=== PATIENT | female | born 1940 | race Caucasian/White ===

== ENCOUNTER 2017-07-25 10:18 | Inpatient (IN) | payer MEDICARE ==
--- NOTE | 2017-07-25 11:11 | CT ---
CT BRAIN: Date: 07/25/17 PROVIDED CLINICAL HISTORY: Altered mental status. FINDINGS: Comparison made with study dated 08/13/15. The ventricular system appears normal in size and morphology. There is no evidence for intracranial h emorrhage or mass effect. The extracranial soft tissues and osseous structures demonstrate an unremar kable CT appearance. IMPRESSION: No evidence for intracranial hemorrhage or mass effect. POS: [facility]
[2017-07-25 11:17] LABS: #Basophils 0.1 thou/uL (0.0-0.2); #Eosinphils 0.2 thou/uL (0.0-0.7); #Lymphocytes 1.7 thou/uL (1.20-3.40); #Monocytes 0.7 thou/uL (0.11-0.59); #Neutrophils 10.7 thou/uL (1.40-6.50); %Basophils 0.6 % (0.0-1.0); %Eosinophils 1.9 % (0.0-10.0); %Lymphocytes 12.4 % (21.0-51.0); %Monocytes 5.1 % (0.0-10.0); %Neutrophils 80.1 % (42.0-75.0); Hemoglobin 12.4 g/dL (12.0-16.0); Mean Corpuscular HGB CONC 32.8 g/dL (32.0-36.0); Mean Corpuscular Hemoglobin 31.8 pg (27.0-31.0); Mean Corpuscular Volume 96.9 fl (81.0-99.0); Mean Platelet Volume 7.6 fL (7.4-10.4); Platelet Count 189 thou/uL (130-400); RBC Distribution Width 14.6 % (11.5-14.5); Red Blood Cell (RBC) Count 3.89 mill/uL (4.20-5.40); White Blood Cell (WBC) Count 13.3 thou/uL (4.8-10.8)
[2017-07-25 11:22] LABS: PTT 26.7 SEC (22.9-36.1); Prothrombin Time 13.5 SEC (12.0-14.7)
[2017-07-25 11:40] LABS: ALT (SGPT) 17 U/L (8-55); AST (SGOT) 20 U/L (5-34); Albumin 3.5 g/dL (3.4-4.8); Alkaline Phosphatase 65 U/L (40-150); Anion Gap 9 mmol/L (10-20); BUN (Urea Nitrogen) 32 mg/dL (9.8-20.1); Bilirubin, Total 0.5 mg/dL (0.2-1.2); CK (CPK) 122 U/L (29-168); CKMB 2.4 ng/mL (0-6.6); Calc. Creatinine Clearance 0 mL/min (70-130); Calcium 9.2 mg/dL (7.8-10.44); Carbon Dioxide 27 mmol/L (23-31); Chloride 109 mmol/L (98-107); Estimated GFR-MDRD 47; Globulin 2.9 g/dL (2.4-3.5); Glucose 101 mg/dL (83-110); Potassium 3.1 mmol/L (3.5-5.1); Protein, Total 6.4 g/dL (6.0-8.3); Sodium 142 mmol/L (136-145); Troponin I Less than 0.010 ng/mL (< 0.028)
[2017-07-25] MEDS ORDERED: Clindamycin/D5W 900 mg/50 ml Premix Bag ONE (14:19)
--- NOTE | 2017-07-25 14:42 | MRI ---
MRI BRAIN: Date: 07/25/17 PROVIDED CLINICAL HISTORY: Weakness. FINDINGS: Evaluation is mildly limited by patient motion. There is, however, no evidence for restricted diffusi on to suggest recent infarction. The ventricular system appears normal in size and morphology. Puncta te areas of FLAIR and T2 hyperintensity involving the periventricular white matter statistically refl ecting chronic microvascular ischemic change. Appropriate flow-voids are seen within the visualized p ortions of the major intracranial vessels. There is no evidence for intracranial hemorrhage or shift of the midline structures. IMPRESSION: Limited study without evidence for an acute intracranial abnormality. POS: [facility]
--- NOTE | 2017-07-25 15:04 | RAD ---
PORTABLE CHEST: Date: 07/25/17 PROVIDED CLINICAL HISTORY: Weakness. FINDINGS: Comparison with 07/13/09. Evaluation is limited by patient body habitus. The cardiac silhouette appears enlarged. The lungs are hypoinflated. Left basilar pleural and/or parenchymal opacity cannot be excluded on the basis of thi s study. No evidence for pneumothorax. IMPRESSION: Cardiomegaly and possible left basilar pleural and/or parenchymal opacity. Consider correlating with a lateral view. POS: [facility]
[2017-07-25 15:34] LABS: Bilirubin Negative (Negative); Blood, Urine Negative (Negative); Clarity CLEAR (Clear); Glucose, Urine (Dipstick) Negative (Negative); Leukocyte Negative (Negative); Nitrite Negative (Negative); Protein, Urine (Dipstick) Negative (Neg-Trace); Specific Gravity, Urine 1.023 (1.002-1.036); Urobilinogen 0.2 mg/dL (0.2-1.0)
[2017-07-25 15:43] LABS: Amphetamine Not Detected (NotDetected); Barbiturates Screen Not Detected (NotDetected); Benzodiazepine Screen Not Detected (NotDetected); Cocaine Metabolite Screen Not Detected (NotDetected); Medtox Control Line Valid? VALID (VALID); Medtox Reader # READER 1; Methadone Not Detected (NotDetected); Methamphetamine Not Detected (NotDetected); Opiate Screen Not Detected (NotDetected); Oxycodone Screen Not Detected (NotDetected); Phencyclidine (PCP) Not Detected (NotDetected); THC/Cannabinoid Screen Not Detected (NotDetected); Tricyclic Screen Not Detected (NotDetected)
[2017-07-25] MEDS ORDERED: Potassium Chloride 20 MEQ/100 ML PREMIX BAG ONE (15:47)
--- NOTE | 2017-07-25 16:50 | HP ---
DATE OF ADMISSION: 07/25/2017 CHIEF COMPLAINT: Weakness, altered mental status and pneumonia. HISTORY OF PRESENT ILLNESS: The patient is a 77-year-old female who was in her usual state of health , but over the last several days, the family has noticed her having confusion and some alteration in her mental status. On the day of admission, she woke up about 7:00 a.m. with weakness and this has p rogressed through the morning. The family thought she might have had a stroke combined with her alte red mental status and brought to [facility] for further evaluation. There has been no fever, nausea, vomiting. She might have had some low grade fever, but nothing documented. No diarr hea. The patient was evaluated in the emergency room, felt that there was possibly a left lobe infil trate. Certainly, there is large cardiomegaly. White count slightly elevated at 13,000, so Dr. Matthew lima was contacted for an admission. She is mildly hypokalemic as well. When EMS arrived to get her fr om her home, she stated that she first noticed her weakness when she was trying to get off the toilet and her legs began feeling heavy and numb. Temperature when EMS arrived was 100.4. She stated she felt like the room was spinning as well. The swelling in her legs is chronically present and she sta ys in the usual state of pain at about 3-5/10. 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 PAST SURGICAL HISTORY: Includes tonsillectomy, three C-sections, appendectomy, hysterectomy, and cho lecystectomy. SOCIAL HISTORY: She does not use alcohol, does not smoke. ALLERGIES: DARVON, ERYTHROMYCIN, MORPHINE, PENICILLINS, and DARVOCET. MEDICATIONS ON ADMISSION: Include Synthroid 175 mcg a day, Topamax 100 mg b.i.d., allopurinol 300 mg daily, potassium chloride 20 mEq daily, Plavix 75 mg daily, Promethazine 25 mg q.4 hours p.r.n. na ea, Imdur 30 mg daily, Protonix 40 mg daily, Cymbalta 30 mg daily, gabapentin 300 mg t.i.d., Mirapex 1.5 mg t.i.d., Celebrex 200 mg every day. She takes Lasix 80 mg b.i.d. for known congestive heart fa ilure. REVIEW OF SYSTEMS: Constitutionally, she reports fever, but denies chills, confesses to general weak ness. HEENT: Denies eye discharge, blurred vision, or drainage. EENT: Denies congestion, ear pain , sore throat. Neck: Denies painful range of motion or swelling. Cardiovascular: Denies palpitations, chest pain, but does have some edema. Respiratory: Admits to having some cough, but no wheezing. GI: Denies nausea, blood in urine or stool, no vomiting. : Denies dysuria or blood in urine or urinary frequency. Musculoskeletal: Has chronic back pain and o n the day of admission bilateral lower extremity pain. Skin: No new rashes or lesions. Neurologic: Her family states that she has been confused. She reports dizziness and general weakness. Endocri ne: No new issues other than edema in lower extremities. Allergies: No sneezing, itchy watery eyes . Psychiatric: Denies depression, but she maintains a mild state of anxiety. PHYSICAL EXAMINATION: At the time of admission, VITAL SIGNS: Blood pressure 116/66, pulse 67, respirations 20, temperature 98.8. Pain scale rated a t 0 at this time and O2 at 95% on 2 liters of oxygen. GENERAL: This is an obese elderly female who is alert and responds in her normal fashion t o questions. HEENT: Normocephalic and atraumatic. Pupils are equal, round, and reactive to light with arcus adia lis bilaterally. Pupils at 3 mm bilaterally with diminished reactivity to light bilaterally. Extrao cular muscles are intact. TMs, nares are clear. Pharynx is somewhat dry. NECK: Supple, no mass. CHEST: With diminished breath sounds on the left. Unable to appreciate rales or rhonchi. HEART: F aint distant, regular rate and rhythm. ABDOMEN: Obese, nontender, unable to appreciate organomegaly. : Deferred. BREAST: Deferred. EXTREMITIES: Upper extremities without clubbing, cyanosis, or edema. Nontender. Normal range of mo tion in the lower extremities with some 2+ swelling and there is 2+ warmth and 2+ erythema. The lesley ent states that this is chronic. SKIN: With the aforementioned changes in the lower extremity, no other acute rashes or lesions noted . On examination, she has poor turgor and tenting in the upper extremities. NEUROLOGIC: Unable to test gait and cerebellar function. Her mental status is clear at this particu lar moment. Mentation is slowed. Cranial nerves are intact. Sensory exam is grossly intact. LABORATORY WORK ON ADMISSION: Chest x-ray shows heart enlargement with probable left lower infiltrat e. CT of the head and MRI of the head, both returned without acute findings. WBCs are 13.3, hemoglo bin 12.4, hematocrit 37.7 with platelets at 189. Her sodium is 142, potassium 3.1, chloride 109, CO2 is 27, BUN 9, creatinine 1.13 with GFR of 47, glucose at 101. Liver functions entirely normal. Car diac enzymes including CK-MB of 2.4 and troponins are less than measurable. Liver functions normal. TSH is 0.38. The EKG shows no acute findings at this time with normal sinus rhythm. ASSESSMENT: 1. Altered mental status with various etiologies from hypoxia to medications. 2. Early left lower lobe pneumonia per Radiology. 3. Hypokalemia. 4. Dehydration, mild. 5. General weakness/deconditioning. PLAN: Plan will be to IV hydrate this patient. Continue IV antibiotics, nebulizer treatments, mucol ytics, and serial re-evaluation. We will maintain her usual medications.
[2017-07-25] MEDS ORDERED: Benzonatate 100 MG CAP PO PRN (18:09)
[2017-07-25] MEDS ORDERED: traMADol HCl 50 MG TAB PO PRN (18:09)
[2017-07-25] MEDS ORDERED: Acetaminophen 325 MG TAB PO PRN (18:14)
[2017-07-25] MEDS: 1/2 NS w/KCL 20 mEq 1,000 ML IV SCH (22:12)
[2017-07-25] MEDS: Azithromycin 500 MG in Sodium Chloride 0.9% 250 ML 250 ML IVPB SCH (22:13)
[2017-07-25] MEDS: Pramipexole Di-HCl 1 MG TAB PO SCH (22:16)
[2017-07-25] MEDS: Potassium Chloride 20 MEQ TAB PO SCH (22:17)
[2017-07-25] MEDS: guaiFENesin ER 600 MG TAB PO SCH (22:17)
[2017-07-25] MEDS: Gabapentin 300 MG CAP PO SCH (22:17)
[2017-07-26 03:36] VITALS: BMI 48.8
[2017-07-26 05:19] LABS: #Basophils 0.1 thou/uL (0.0-0.2); #Eosinphils 0.2 thou/uL (0.0-0.7); #Lymphocytes 1.7 thou/uL (1.20-3.40); #Monocytes 0.6 thou/uL (0.11-0.59); #Neutrophils 4.7 thou/uL (1.40-6.50); %Basophils 0.9 % (0.0-1.0); %Eosinophils 3.3 % (0.0-10.0); %Lymphocytes 23.9 % (21.0-51.0); %Monocytes 7.5 % (0.0-10.0); %Neutrophils 64.4 % (42.0-75.0); Hemoglobin 10.9 g/dL (12.0-16.0); Mean Corpuscular HGB CONC 32.5 g/dL (32.0-36.0); Mean Corpuscular Hemoglobin 31.6 pg (27.0-31.0); Mean Corpuscular Volume 97.1 fl (81.0-99.0); Mean Platelet Volume 8.2 fL (7.4-10.4); Platelet Count 170 thou/uL (130-400); RBC Distribution Width 14.7 % (11.5-14.5); Red Blood Cell (RBC) Count 3.47 mill/uL (4.20-5.40); White Blood Cell (WBC) Count 7.3 thou/uL (4.8-10.8)
[2017-07-26 05:27] LABS: Anion Gap 8 mmol/L (10-20); BUN (Urea Nitrogen) 26 mg/dL (9.8-20.1); Calc. Creatinine Clearance 85 mL/min (70-130); Calcium 8.4 mg/dL (7.8-10.44); Carbon Dioxide 24 mmol/L (23-31); Chloride 111 mmol/L (98-107); Estimated GFR-MDRD 62; Glucose 93 mg/dL (83-110); Potassium 3.1 mmol/L (3.5-5.1); Sodium 140 mmol/L (136-145); Uric Acid 3.8 mg/dL (2.6-6.0)
[2017-07-26] MEDS: Levothyroxine 175 MCG TAB PO SCH (05:50)
[2017-07-26] MEDS: Pramipexole Di-HCl 1 MG TAB PO SCH ×3 (08:22→20:32)
[2017-07-26] MEDS: DULoxetine 30 MG CAP PO SCH (08:22)
[2017-07-26] MEDS: guaiFENesin ER 600 MG TAB PO SCH ×2 (08:24→20:32)
[2017-07-26] MEDS: Allopurinol 300 MG TAB PO SCH (08:24)
[2017-07-26] MEDS: CeleCOXIB 100 MG CAP PO SCH (08:24)
[2017-07-26] MEDS: Potassium Chloride 20 MEQ TAB PO SCH ×3 (08:24→20:32)
[2017-07-26] MEDS: Clopidogrel Bisulfate 75 MG TAB PO SCH (08:24)
[2017-07-26] MEDS: Gabapentin 300 MG CAP PO SCH ×3 (08:24→20:32)
[2017-07-26] MEDS ORDERED: Furosemide 80 MG TAB PO SCH (09:00)
[2017-07-26] MEDS: 1/2 NS w/KCL 20 mEq 1,000 ML IV SCH (09:40)
[2017-07-26] MEDS ORDERED: Furosemide 40 MG/4 ML VIAL SLOW IVP SCH ×2 (10:00→16:00)
--- NOTE | 2017-07-26 11:10 | RAD ---
CHEST 2 VIEWS: Date: 07/26/17 HISTORY: Pneumonia. COMPARISON: 07/25/17. FINDINGS: Persistent opacification in the left lung base. Enlarged cardiac silhouette. There is fullness in the left perihilar region. Hiatal hernia is identified. No pneumothorax. Mild bone demineralization. Kyp hosis without evidence of compression fracture in the thoracic spine. IMPRESSION: 1. Pleural and parenchymal changes in the left lung base. Continued surveillance. 2. Hiatal hernia. 3. Left hilar fullness. POS: [facility]
[2017-07-26] MEDS ORDERED: Furosemide 20 MG/2 ML VIAL SLOW IVP SCH (16:00)
[2017-07-26] MEDS: Azithromycin 500 MG in Sodium Chloride 0.9% 250 ML 250 ML IVPB SCH (20:33)
[2017-07-27 04:58] LABS: #Basophils 0.1 thou/uL (0.0-0.2); #Eosinphils 0.5 thou/uL (0.0-0.7); #Lymphocytes 1.9 thou/uL (1.20-3.40); #Monocytes 0.7 thou/uL (0.11-0.59); #Neutrophils 3.4 thou/uL (1.40-6.50); %Basophils 1.1 % (0.0-1.0); %Eosinophils 7.9 % (0.0-10.0); %Lymphocytes 28.6 % (21.0-51.0); %Monocytes 10.7 % (0.0-10.0); %Neutrophils 51.8 % (42.0-75.0); Hemoglobin 11.1 g/dL (12.0-16.0); Mean Corpuscular HGB CONC 31.8 g/dL (32.0-36.0); Mean Corpuscular Hemoglobin 31.4 pg (27.0-31.0); Mean Corpuscular Volume 98.7 fl (81.0-99.0); Platelet Count 165 thou/uL (130-400); RBC Distribution Width 14.7 % (11.5-14.5); Red Blood Cell (RBC) Count 3.53 mill/uL (4.20-5.40); White Blood Cell (WBC) Count 6.5 thou/uL (4.8-10.8)
[2017-07-27 05:09] LABS: Anion Gap 11 mmol/L (10-20); BUN (Urea Nitrogen) 27 mg/dL (9.8-20.1); Calc. Creatinine Clearance 79 mL/min (70-130); Calcium 8.7 mg/dL (7.8-10.44); Carbon Dioxide 19 mmol/L (23-31); Chloride 111 mmol/L (98-107); Estimated GFR-MDRD 41; Glucose 98 mg/dL (83-110); Potassium 4.1 mmol/L (3.5-5.1); Sodium 137 mmol/L (136-145)
[2017-07-27] MEDS: 1/2 NS w/KCL 20 mEq 1,000 ML IV SCH ×2 (05:37→15:49)
[2017-07-27] MEDS: Levothyroxine 175 MCG TAB PO SCH (05:38)
[2017-07-27] MEDS: Pramipexole Di-HCl 1 MG TAB PO SCH ×3 (08:42→20:36)
[2017-07-27] MEDS: guaiFENesin ER 600 MG TAB PO SCH ×2 (08:44→20:36)
[2017-07-27] MEDS: DULoxetine 30 MG CAP PO SCH (08:44)
[2017-07-27] MEDS: CeleCOXIB 100 MG CAP PO SCH (08:45)
[2017-07-27] MEDS: Potassium Chloride 20 MEQ TAB PO SCH ×3 (08:45→20:36)
[2017-07-27] MEDS: Gabapentin 300 MG CAP PO SCH ×3 (08:46→20:36)
[2017-07-27] MEDS: Allopurinol 300 MG TAB PO SCH (08:46)
[2017-07-27] MEDS: Clopidogrel Bisulfate 75 MG TAB PO SCH (08:46)
[2017-07-27] MEDS ORDERED: Prevnar 13-Val Conj/PF 0.5 ML SYRINGE IM ONE (09:00)
[2017-07-27] MEDS ORDERED: FLU VACC TS2017-18 (>65YR) 0.5 ML SYRINGE IM ONE (09:00)
--- NOTE | 2017-07-27 09:23 | RAD ---
CHEST TWO VIEWS: HISTORY: Pneumonia. Followup. COMPARISON: 07/26/2017 FINDINGS: The cardiac silhouette remains enlarged. Pulmonary vasculature is at the upper limits of normal. Pa tchy left basilar infiltrate and hiatal hernia are similar in appearance to the previous exam. The m ediastinum is midline. Dystrophic calcification inferior to the left glenohumeral joint is now gus r visualized. IMPRESSION: Patchy left basilar infiltrate and other findings are stable. POS: [facility]
[2017-07-27] MEDS: Azithromycin 500 MG in Sodium Chloride 0.9% 250 ML 250 ML IVPB SCH (20:36)
[2017-07-28 05:03] LABS: #Basophils 0.1 thou/uL (0.0-0.2); #Eosinphils 0.5 thou/uL (0.0-0.7); #Lymphocytes 1.6 thou/uL (1.20-3.40); #Monocytes 0.6 thou/uL (0.11-0.59); #Neutrophils 3.8 thou/uL (1.40-6.50); %Basophils 1.1 % (0.0-1.0); %Eosinophils 7.7 % (0.0-10.0); %Lymphocytes 24.6 % (21.0-51.0); %Neutrophils 57.5 % (42.0-75.0); Hemoglobin 11.2 g/dL (12.0-16.0); Mean Corpuscular HGB CONC 32.6 g/dL (32.0-36.0); Mean Corpuscular Volume 98.1 fl (81.0-99.0); Mean Platelet Volume 7.9 fL (7.4-10.4); Platelet Count 181 thou/uL (130-400); RBC Distribution Width 14.6 % (11.5-14.5); Red Blood Cell (RBC) Count 3.49 mill/uL (4.20-5.40); White Blood Cell (WBC) Count 6.6 thou/uL (4.8-10.8)
[2017-07-28 05:12] LABS: Anion Gap 11 mmol/L (10-20); BUN (Urea Nitrogen) 25 mg/dL (9.8-20.1); Calc. Creatinine Clearance 72 mL/min (70-130); Calcium 9.3 mg/dL (7.8-10.44); Carbon Dioxide 21 mmol/L (23-31); Chloride 110 mmol/L (98-107); Estimated GFR-MDRD 51; Glucose 105 mg/dL (83-110); Potassium 4.4 mmol/L (3.5-5.1); Sodium 138 mmol/L (136-145)
[2017-07-28] MEDS: Levothyroxine 175 MCG TAB PO SCH (05:21)
[2017-07-28] MEDS: 1/2 NS w/KCL 20 mEq 1,000 ML IV SCH ×2 (05:38→16:50)
[2017-07-28] MEDS: Pramipexole Di-HCl 1 MG TAB PO SCH ×3 (07:59→20:24)
[2017-07-28] MEDS: Gabapentin 300 MG CAP PO SCH ×3 (08:00→20:26)
[2017-07-28] MEDS: Clopidogrel Bisulfate 75 MG TAB PO SCH (08:00)
[2017-07-28] MEDS: Allopurinol 300 MG TAB PO SCH (08:01)
[2017-07-28] MEDS: guaiFENesin ER 600 MG TAB PO SCH ×2 (08:01→20:25)
[2017-07-28] MEDS: Potassium Chloride 20 MEQ TAB PO SCH ×3 (08:01→20:24)
[2017-07-28] MEDS: CeleCOXIB 100 MG CAP PO SCH (08:02)
[2017-07-28] MEDS: DULoxetine 30 MG CAP PO SCH (08:03)
--- NOTE | 2017-07-28 08:15 | PRG ---
DATE OF SERVICE: 07/28/2017 SUBJECTIVE: The patient had a horrible night. She states she had a reaction to the breathing treat ent. The patient's oxygen had to be increased to 3 liters. The patient is weak; however, she is get ting up with help to go to the bedside commode. PHYSICAL EXAMINATION: GENERAL: She is awake, alert, and oriented to person, place and time. VITAL SIGNS: Her blood pressure is 130/70, pulse 70, respiration rate 18, she is afebrile. NECK: Supple. No JVP or carotid bruit. Carotid upstrokes good, no thyromegaly. COR: Regular rate and rhythm. CHEST: Scattered wheezing. ABDOMEN: Soft, nontender, normal bowel sounds. No organomegaly. EXTREMITIES: No edema or cyanosis. She had palpable pedal pulses. SKIN: There is evidence ulcer, lesion or rash. NEUROLOGIC: She is awake, alert, and oriented to person, place, and time. LABORATORY DATA: Her white blood cells 6.6, her H&H 11.2 and 34.3. Her platelet count is 181. ASSESSMENT: 1. Pneumonia. 2. Dehydration. 3. Deconditioning. PLAN: The patient is not yet ready to go home right now as she had an episode last night of increasi ng shortness of breath; however, she is back to her baseline this morning. Her chest x-ray yesterday showed patchy left basilar infiltrate. We will follow up with physical therapy to see if she if sh e is going to need any type of rehab. The patient verbalized understanding. All questions to her sa tisfaction.
--- NOTE | 2017-07-28 10:16 | PQF ---
DATE: 07-28-17 ATTN: DR. PARRIS HUBER Please exercise your independent, professional judgment in responding to the clarification form. Clinical indicators are provided on the bottom of this form for your review Please check appropriate box(s): [ ] Encephalopathy: Type: [ ] Acute [ ] Subacute [ ] Chronic Etiology: [ ] Metabolic [ ] Toxic [ x ] Transient Alteration of Awareness [ ] Other diagnosis [ ] Unable to determine In addition, please specify: Present on Admission (POA): [ x ] Yes [ ] No [ ] Unable to determine For continuity of documentation, please document condition throughout progress notes and discharge summary. Thank You. CLINICAL INDICATORS - SIGNS / SYMPTOMS / LABS ER DIAGNOSIS: ALTERED MENTAL STATUS, DEHYDRATION, HYPOKALEMIA, POSSIBLE PNEUMONIA, WEAKNESS H&P: WEAKNESS, ALTERED MENTAL STATUS AND PNEUMONIA, THE FAMILY HAS NOTICED HER HAVING CONFUSION AND SOME ALTERATION IN HER MENTAL STATUS H&P: ALTERED MENTAL STATUS WITH VARIOUS ETIOLOGIES FROM HYPOXIA TO MEDICATIONS. RISK FACTORS: H&P: ALTERED MENTAL STATUS WITH VARIOUS ETIOLOGIES FROM HYPOXIA TO MEDICATIONS H&P: EARLY LEFT LOWE LOBE PNEUMONIA PER RADIOLOGY TREATMENTS: (MAR) LEVAQUIN, IVF, ZITHROMAX PN : THE PATIENTS OXYGEN HAD TO BE INCREASED TO 3 LITERS (This form is maintained as a part of the permanent medical record) 2014 [employer] ([employer] [place]. All Rights Reserved [email or web address] [email or web address] Office: [phone] HARI
[2017-07-28] MEDS: Azithromycin 500 MG in Sodium Chloride 0.9% 250 ML 250 ML IVPB SCH (20:26)
[2017-07-29] MEDS: 1/2 NS w/KCL 20 mEq 1,000 ML IV SCH ×2 (02:24→12:17)
[2017-07-29] MEDS: Levothyroxine 175 MCG TAB PO SCH (05:47)
[2017-07-29] MEDS: guaiFENesin ER 600 MG TAB PO SCH (08:45)
[2017-07-29] MEDS: DULoxetine 30 MG CAP PO SCH (08:46)
[2017-07-29] MEDS: Pramipexole Di-HCl 1 MG TAB PO SCH ×2 (08:46→15:02)
[2017-07-29] MEDS: Clopidogrel Bisulfate 75 MG TAB PO SCH (08:46)
[2017-07-29] MEDS: CeleCOXIB 100 MG CAP PO SCH (08:46)
[2017-07-29] MEDS: Potassium Chloride 20 MEQ TAB PO SCH ×2 (08:46→15:02)
[2017-07-29] MEDS: Gabapentin 300 MG CAP PO SCH ×2 (08:46→15:02)
[2017-07-29] MEDS: Allopurinol 300 MG TAB PO SCH (08:47)
[2017-07-29 15:58] VITALS: BP 158/95; TEMP 97.8
== END 2017-07-29 15:36 | disposition home or self-care (01) | DRG 194 ==
LOC: ERS 10:18 → T4-A 15:54
PROVIDERS: ADMIT Specialist; ATTEND Specialist
DX: J18.9 Pneumonia, unspecified organism (principal); Z68.42 Body mass index [BMI] 45.0-49.9, adult; D64.9 Anemia, unspecified; E66.01 Morbid (severe) obesity due to excess calories; I11.0 Hypertensive heart disease with heart failure; E86.0 Dehydration; E87.6 Hypokalemia; R40.4 Transient alteration of awareness; E78.5 Hyperlipidemia, unspecified; Z86.73 Personal history of transient ischemic attack (TIA), and cerebral infarction without residual deficits; E03.9 Hypothyroidism, unspecified; G25.81 Restless legs syndrome; F32.9 Major depressive disorder, single episode, unspecified; I25.119 Atherosclerotic heart disease of native coronary artery with unspecified angina pectoris; K21.9 Gastro-esophageal reflux disease without esophagitis; E55.9 Vitamin D deficiency, unspecified; R09.02 Hypoxemia; M10.9 Gout, unspecified; M19.91 Primary osteoarthritis, unspecified site
CPT/HCPCS: 36415; 70450; 70551; 71045; 71046; 80048; 80053; 80306; 81003; 82274; 82553; 83880; 84443; 84484; 84550; 85025; 85610; 85730; 87040; 87086; 90471; 90682; 93005; 94640; 94760; 96365; 96366; 96367; 96368; A4216; A4353; G0008; G8978-GP-CJ; G8979-GP-CJ; G8980-GP-CJ; J0456; J1940; J1956; J3480; J3490; J7050; J7620; Q2036

== ENCOUNTER 2017-08-26 13:54 | Outpatient (CLI) | payer MEDICARE ==
--- NOTE | 2017-08-26 19:35 | HP ---
DATE OF SERVICE: 08/26/2017 HISTORY OF PRESENT ILLNESS: Ms. Kurt Bro is a very pleasant 77-year-old accompanied by her son , who [facility] for evaluation of bilateral lower extremity edema. The patient wa s referred to the Wound [facility] by Dr. Buenrostro. The patient states that she has no open wounds of he r right or left lower extremity at this time. The patient has no other complaints today. She denies any fever or chills. PAST MEDICAL HISTORY: 1. Coronary artery disease. 2. Hypothyroidism. 3. Hypertension. 4. Transient ischemic attack x4. 5. Osteoarthritis. 6. Rheumatoid arthritis. 7. Spinal stenosis. 8. Gastroesophageal reflux disease. 9. Gout. 10. Renal insufficiency. 11. Chronic back pain. 12. Congestive heart failure. 13. COPD. PAST SURGICAL HISTORY: 1. Tonsillectomy. 2. x3. 3. Appendectomy. 4. Hysterectomy. 5. Cholecystectomy. MEDICATIONS: 1. Plavix. 2. Potassium chloride. 3. Pramipexole. 4. Nitroglycerin spray. 5. Phenergan. 6. Allopurinol. 7. Gabapentin. 8. Zaroxolyn. 9. Lasix. 10. Protonix. 11. Synthroid. 12. Celecoxib. 13. Alirocumab. 14. Uloric. 15. Isosorbide. 16. Duloxetine. 17. Topiramate. ALLERGIES: DARVON, PENICILLIN, ERYTHROMYCIN, MORPHINE, LIDOCAINE. SOCIAL HISTORY: Negative for tobacco use. Negative for ETOH use. FAMILY HISTORY: Significant for diabetes mellitus. The patient states that she has 2 daughters who are diagnosed with diabetes mellitus. Family history is negative for coronary artery disease. PHYSICAL EXAMINATION: VITAL SIGNS: Temperature 97.8, pulse 84, respirations 20, blood pressure 146/67. GENERAL: A 77-year-old female sitting in examination room, in no acute distress. HEENT: Normocephalic, atraumatic. The patient is utilizing O2 via nasal cannula. NECK: No nuchal rigidity. CHEST: Clear to auscultation. CARDIAC: Regular rate and rhythm. ABDOMEN: Soft. EXTREMITIES: Edema of the right and left lower extremities is present. No open wounds are present o buck the right or left lower extremity. No cellulitis of the right or left lower extremity is present . No maceration of the skin of the right or left lower extremity is noted. A dorsalis pedis pulse i s palpable on the right and on the left. Circumferences of the right lower extremity at the ankle, c long-term, and knee are 32 cm, 54 cm, and 58 cm. Circumferences of the left lower extremity at the ankle, calf, and knee are 33 cm, 53 cm, and 52 cm. ASSESSMENT AND PLAN: 1. Lymphedema tarda. The patient continues to have significant swelling of the right and left lower extremities despite elevation. Arrangements will be made for the initiation of in-home lymphedema t herapy with a pneumatic pump. The patient understands and is in agreement with the preceding treatme nt plan. I will see Ms. Bro again on 09/17/2017. 2. Coronary artery disease. 3. Hypothyroidism. 4. Hypertension. 5. Transient ischemic attack x4. 6. Osteoarthritis. 7. Rheumatoid arthritis. 8. Spinal stenosis. 9. Gastroesophageal reflux disease. 10. Gout. 11. Renal insufficiency. 12. Chronic back pain. 13. Congestive heart failure 14. Chronic obstructive pulmonary disease, on home O2.
== END 2017-08-26 13:55 | disposition home or self-care (01) ==
LOC: WCC 13:54
PROVIDERS: ATTEND Family Medicine
DX: I89.0 Lymphedema, not elsewhere classified (principal); I11.0 Hypertensive heart disease with heart failure; I50.9 Heart failure, unspecified; E03.9 Hypothyroidism, unspecified; I25.10 Atherosclerotic heart disease of native coronary artery without angina pectoris; G45.9 Transient cerebral ischemic attack, unspecified; M19.90 Unspecified osteoarthritis, unspecified site; M06.9 Rheumatoid arthritis, unspecified; M48.00 Spinal stenosis, site unspecified; K21.9 Gastro-esophageal reflux disease without esophagitis; M10.9 Gout, unspecified; N28.9 Disorder of kidney and ureter, unspecified; G89.29 Other chronic pain; J44.9 Chronic obstructive pulmonary disease, unspecified; Z99.81 Dependence on supplemental oxygen
CPT/HCPCS: 97139; G0463; 99202

== ENCOUNTER 2017-09-17 09:49 | Outpatient (CLI) | payer MEDICARE ==
--- NOTE | 2017-09-17 14:07 | PRG ---
DATE OF SERVICE: 09/17/2017 HISTORY: Ms. Kurt Bro is a very pleasant 77-year-old who presents to the [facility] for poonam luation of bilateral lower extremity edema. The patient was referred to the Wound Center by Dr. Consuelo luna. The patient again states that she has no open wounds of her right or left lower extremity at t his time. Ms. Bro has no other complaints today. She denies any fever or chills. PHYSICAL EXAMINATION: VITAL SIGNS: Temperature 97.5, pulse 55, respirations 20, blood pressure 129/58. EXTREMITIES: Edema of the right and left lower extremities is present. No open wounds are present o buck the right or left lower extremity. No cellulitis of the right or left lower extremity is present . No maceration of the skin of the right or left lower extremity is noted. A dorsalis pedis pulse i s palpable on the right and on the left. Circumferences of the right lower extremity at the ankle, c jail and knee are 29.5 cm, 48 cm, and 47 cm. Circumferences of the left lower extremity at the ankle, calf and knee are 31.5 cm, 48 cm, and 48 cm. ASSESSMENT AND PLAN: 1. Lymphedema tarda. The patient continues to have significant swelling of the right and left lower extremities, despite elevation. Arrangements will continue for the initiation of in home lymphedema therapy with a pneumatic pump. Ms. Bro will be discharged from clinic today with followup on a p. r.n. basis. 2. Coronary artery disease. 3. Hypothyroidism. 4. Hypertension. 5. Transient ischemic attack x4. 6. Osteoarthritis. 7. Rheumatoid arthritis. 8. Spinal stenosis. 9. Gastroesophageal reflux disease. 10. Gout. 11. Renal insufficiency. 12. Chronic back pain. 13. Congestive heart failure. 14. Chronic obstructive pulmonary disease on home O2.
== END 2017-09-17 09:50 | disposition home or self-care (01) ==
LOC: WCC 09:49
PROVIDERS: ATTEND Family Medicine
DX: I80.9 Phlebitis and thrombophlebitis of unspecified site (principal); M79.89 Other specified soft tissue disorders; I11.0 Hypertensive heart disease with heart failure; I50.9 Heart failure, unspecified; I25.10 Atherosclerotic heart disease of native coronary artery without angina pectoris; E03.9 Hypothyroidism, unspecified; M19.90 Unspecified osteoarthritis, unspecified site; G45.9 Transient cerebral ischemic attack, unspecified; M06.9 Rheumatoid arthritis, unspecified; M48.00 Spinal stenosis, site unspecified; K21.9 Gastro-esophageal reflux disease without esophagitis; M10.9 Gout, unspecified; M54.9 Dorsalgia, unspecified; G89.29 Other chronic pain; N28.9 Disorder of kidney and ureter, unspecified; J44.9 Chronic obstructive pulmonary disease, unspecified
CPT/HCPCS: 97139; G0463; 99213

== ENCOUNTER 2018-05-20 10:51 | Inpatient (IN) | payer MEDICARE, MEDICAID ==
[2018-05-20] MEDS ORDERED: ISOVUE-370 76%-LOCM 1 ML ONE (11:25)
[2018-05-20 12:28] LABS: #Basophils 0.2 thou/uL (0.0-0.2); #Eosinphils 0.5 thou/uL (0.0-0.7); #Lymphocytes 1.7 thou/uL (1.20-3.40); #Monocytes 0.9 thou/uL (0.11-0.59); #Neutrophils 12.2 thou/uL (1.40-6.50); %Eosinophils 3.5 % (0.0-10.0); %Lymphocytes 11.1 % (21.0-51.0); %Monocytes 5.8 % (0.0-10.0); %Neutrophils 78.7 % (42.0-75.0); Hemoglobin 11.4 g/dL (12.0-16.0); Mean Corpuscular HGB CONC 31.4 g/dL (32.0-36.0); Mean Corpuscular Hemoglobin 31.4 pg (27.0-31.0); Mean Corpuscular Volume 99.9 fL (78.0-98.0); Mean Platelet Volume 8.2 fL (7.4-10.4); Platelet Count 302 thou/uL (130-400); RBC Distribution Width 15.1 % (11.5-14.5); Red Blood Cell (RBC) Count 3.63 mill/uL (4.20-5.40); White Blood Cell (WBC) Count 15.5 thou/uL (4.8-10.8)
[2018-05-20 12:43] LABS: ALT (SGPT) 18 U/L (8-55); AST (SGOT) 16 U/L (5-34); Albumin 3.4 g/dL (3.4-4.8); Alkaline Phosphatase 88 U/L (40-150); Anion Gap 25 mmol/L (10-20); BUN (Urea Nitrogen) 106 mg/dL (9.8-20.1); Bilirubin, Total 0.2 mg/dL (0.2-1.2); Calc. Creatinine Clearance 0 mL/min (70-130); Calcium 8.9 mg/dL (7.8-10.44); Carbon Dioxide 11 mmol/L (23-31); Chloride 102 mmol/L (98-107); Estimated GFR-MDRD 8; Globulin 3.9 g/dL (2.4-3.5); Glucose 109 mg/dL (83-110); Potassium 3.2 mmol/L (3.5-5.1); Protein, Total 7.3 g/dL (6.0-8.3); Sodium 135 mmol/L (136-145)
[2018-05-20] MEDS ORDERED: Diltiazem 125 MG/25 ML ONE (14:54)
--- NOTE | 2018-05-20 15:23 | CT ---
CHEST AND ABDOMEN AND PELVIS CT SCAN WITHOUT IV CONTRAST THORACIC SPINE CT SCAN WITHOUT IV CONTRAST LIMITED LUMBAR SPINE CT SCAN WITHOUT IV CONTRAST LIMITED: Date: 05/20/18 HISTORY: Back pain with injury and wound associated with fall from trauma. FINDINGS: CHEST, ABDOMEN, AND PELVIS CT WITHOUT IV CONTRAST: There is a huge hiatal hernia containing the bulk of the stomach, as well as the splenic flexure of c olon, without evidence for associated obstruction. No mediastinal hematoma. No pleural effusion or pn eumothorax. Status post cholecystectomy. 1.8 cm left renal cyst. There is scattered fluid within the colon, including the splenic flexure and left colon and rectum. Minimal colonic diverticulosis withou t acute diverticulitis. No evidence of large or small bowel obstruction. Visualized liver, pancreas, spleen, and adrenal glands are unremarkable as evaluated without IV contrast. No free intraperitoneal fluid or evidence for retroperitoneal hematoma. IMPRESSION: No significant acute post-traumatic process in the chest, abdomen, or pelvis. Very large hiatal herni a. This contains the bulk of the stomach, as well as splenic flexure of colon without evidence for ob struction. Other findings as above. THORACIC SPINE CT SCAN WITHOUT IV CONTRAST LIMITED: FINDINGS/IMPRESSION: Extensive thoracic spine spondylosis without evidence for acute fracture or dislocation. LUMBAR SPINE CT SCAN WITHOUT IV CONTRAST LIMITED: FINDINGS: Multilevel disc osteophytosis and facet arthrosis. Very severe central spinal canal stenosis at L3-L4 . Moderate anterolisthesis of L4 on L5 with severe central canal, lateral recess, and foraminal steno sis. Unremarkable L5-S1. IMPRESSION: No acute fracture or dislocation. Severe stenotic changes at L3-L4 and L4-L5 with anterolisthesis of L4 on L5. POS: [facility]
[2018-05-20 15:29] LABS: Bilirubin Moderate (Negative); Blood, Urine Negative (Negative); Clarity CLEAR (Clear); Glucose, Urine (Dipstick) Negative (Negative); Leukocyte Trace (Negative); Nitrite Negative (Negative); Protein, Urine (Dipstick) 30 mg/dL (Neg-Trace); Specific Gravity, Urine 1.017 (1.002-1.036); Urobilinogen 0.2 mg/dL (0.2-1.0); pH, Urine 5.5 (5.0-9.0)
[2018-05-20 15:32] LABS: Bacteria/HPF None Seen HPF (None Seen); Hyaline Casts/LPF 0-3 HYALINE CAST LPF (0-3 Hyaline); Pathc Cast-AUWi Flag 0.43 (0-2.49); RBC/HPF 0-3 HPF (0-3); Squamous Epithelial 0-3 HPF (0-3); WBC/HPF 0-3 HPF (0-3)
[2018-05-20 15:33] LABS: Renal Epithelial None Seen HPF (0-3); Transitional Epithelial NONE SEEN HPF (0-3)
[2018-05-20] MEDS ORDERED: Diltiazem HCl 125 MG, Admixture Fee 1 EACH in Sodium Chloride 0.9% 100 ML IVPB SCH (15:45)
[2018-05-20] MEDS ORDERED: Sodium Chloride 0.9% 1,000 ML IV SCH (18:10)
[2018-05-20 18:17] VITALS: BMI 38.0
[2018-05-20] MEDS ORDERED: Ondansetron PF 4 MG/2 ML Vial SLOW IVP PRN (18:54)
[2018-05-20] MEDS: Pramipexole Di-HCl 1 MG TAB PO SCH (21:20)
[2018-05-20] MEDS: Sodium Chloride 0.9% 1,000 ML IV SCH (21:20)
[2018-05-20] MEDS: Acetaminophen 325 MG TAB PO PRN (21:21)
[2018-05-20] MEDS: Nystatin 500,000 UNITS/5 ML UDCUP SSW SCH (21:21)
[2018-05-20] MEDS: Enoxaparin Sodium 80 MG/0.8 ML SYRINGE SC SCH (21:21)
[2018-05-21] MEDS: Sodium Chloride 0.9% 1,000 ML IV SCH (00:05)
--- NOTE | 2018-05-21 01:26 | HP ---
CHIEF COMPLAINT ON ADMISSION: New onset atrial fibrillation with acute kidney injury and chest wall contusion. HISTORY OF PRESENT ILLNESS: The patient is a 78-year-old female who presented for evaluation of a fall that occurred two days ago when she slipped and landed on her chest. The family has brought her in because they have been concerned about her increased falling and they state she had been confused. In the emergency room, she was noted to be somewhat lethargic and slow to respond. She denies having any fever, but she is on 2 L regularly at home, but symptoms have been worsening and her chest wall pain has gone up to 9/10. She denies shortness of breath, nausea, vomiting, diarrhea, dyspnea, or diaphoresis. In the emergency room, she was noted to have bruising on the chest wall, elevated BUN and creatinine, and atrial fibrillation, which she had not had before. For these reasons, she will be admitted for further evaluation. PAST MEDICAL HISTORY: Significant for angina, hypertension, diffuse arthritis, episodes of gout, spinal stenosis, restless legs syndrome, TIA, history of rheumatic fever, GERD, chronic pain. PAST SURGICAL HISTORY: Includes appendectomy, cholecystectomy, section x3, hysterectomy and tonsillectomy. PSYCHIATRIC HISTORY: Include depression in the past. SOCIAL HISTORY: Does not drink alcohol. Does not smoke. ALLERGIES: TO DARVON, ERYTHROMYCIN, GABAPENTIN, LIDOCAINE, LYRICA, MORPHINE, AND PENICILLIN. MEDICATIONS ON ADMISSION: Include: 1. Synthroid 175 mcg a day. 2. Topamax 100 mg b.i.d. 3. Uloric 40 mg daily. 4. Plavix 75 mg daily. 5. Promethazine 25 mg p.r.n. nausea. 6. Nitroglycerin sublingual p.r.n. chest pain. 7. Protonix 40 mg daily. 8. Nitro-Dur 30 mg daily. 9. Duloxetine 30 mg daily. 10. Gabapentin 300 mg t.i.d. 11. Mirapex 1.5 mg t.i.d. 12. Celebrex 200 mg once a day. 13. Lasix 80 mg b.i.d. REVIEW OF SYSTEMS: At the time of evaluation, CONSTITUTIONAL: She denies fever, chills, but reports weakness, malaise, and confused thinking. HEENT: No sores in ears and nose, but has a sore throat. No drainage. CHEST: No shortness of breath or cough. CARDIOVASCULAR: Denies chest pain or palpitations. ABDOMEN: Denies pain, nausea, vomiting, or diarrhea. : Denies painful urination. MUSCULOSKELETAL: Sore all over her back and chest where she has fallen. SKIN: There is noted bruising where she has fallen. NEUROLOGIC: Reports some confusion, but no hypesthesia or anesthesia. PHYSICAL EXAMINATION: VITAL SIGNS: Blood pressure 115/74, pulse 88, respirations 18, temperature 98.5, pain scale 9/10, O2 saturation 99% on 2 L. GENERAL: This is an elderly female, alert and at the time of evaluation is minimally responsive, incorrect. HEENT: Normocephalic, atraumatic. Pupils equal, round, reactive to light. Reactivity is diminished and there is arcus senilis bilaterally. TMs and nares clear. Pharynx with white patches thought to be thrush. NECK: Supple. CHEST: Clear to auscultation. HEART: Irregular rate, irregular rhythm. ABDOMEN: Soft, nontender. : Deferred. BREASTS: Deferred. EXTREMITIES: Without clubbing or cyanosis. There is 2+ lower extremity edema. The range of motion is adequate. SKIN: With the aforementioned bruising on the chest wall, otherwise dry. NEUROLOGIC: Cranial nerves are intact. Unable to test gait and cerebellar function at this time. Mental status appears improved and intact at this time. LABORATORY DATA: Lab work on admission, WBCs 15.5, hemoglobin 10.4, hematocrit 36.2, platelets of 302. Sodium 135, potassium 3.2, chloride is 102, CO2 11, BUN 106, creatinine 5.22, glucose 109. Liver functions unremarkable. Urinalysis shows trace ketones, moderate bilirubin, trace leukocyte esterase. The CT of the abdomen failed to show any acute process. The CT of the chest as well failed to show any acute process. ASSESSMENT: 1. New onset atrial fibrillation with rapid ventricular response. 2. Acute kidney injury. 3. Dehydration causing acute kidney injury. 4. Chest wall contusion. 5. Oral thrush. PLAN: Plan will be fluid resuscitation, serial re-evaluation, cardiology consultation. We will continue the Cardizem drip for now. We will anticoagulate her and treat the thrush. Job ID: [id number]
[2018-05-21] MEDS: Acetaminophen 325 MG TAB PO PRN (05:04)
[2018-05-21 05:22] LABS: #Basophils 0.1 thou/uL (0.0-0.2); #Eosinphils 0.8 thou/uL (0.0-0.7); #Lymphocytes 2.2 thou/uL (1.20-3.40); #Monocytes 0.9 thou/uL (0.11-0.59); #Neutrophils 7.6 thou/uL (1.40-6.50); %Basophils 1.1 % (0.0-1.0); %Eosinophils 7.2 % (0.0-10.0); %Lymphocytes 18.8 % (21.0-51.0); %Monocytes 7.6 % (0.0-10.0); %Neutrophils 65.3 % (42.0-75.0); Hemoglobin 10.3 g/dL (12.0-16.0); Mean Corpuscular HGB CONC 32.7 g/dL (32.0-36.0); Mean Corpuscular Hemoglobin 33.2 pg (27.0-31.0); Mean Platelet Volume 8.5 fL (7.4-10.4); Platelet Count 252 thou/uL (130-400); RBC Distribution Width 14.9 % (11.5-14.5); Red Blood Cell (RBC) Count 3.11 mill/uL (4.20-5.40); White Blood Cell (WBC) Count 11.7 thou/uL (4.8-10.8)
[2018-05-21 05:42] LABS: Anion Gap 22 mmol/L (10-20); BUN (Urea Nitrogen) 98 mg/dL (9.8-20.1); Calc. Creatinine Clearance 13 mL/min (70-130); Calcium 8.2 mg/dL (7.8-10.44); Carbon Dioxide 11 mmol/L (23-31); Cardiac Risk 1.9 (Less than 4.5); Chloride 109 mmol/L (98-107); Cholesterol 103 mg/dl (< 200 Desired); Estimated GFR-MDRD 9; Glucose 88 mg/dL (83-110); HDL Cholesterol 53 mg/dL (>60 Neg Risk); LDL Cholesterol, Calculated 32 mg/dL; Sodium 139 mmol/L (136-145); Triglycerides 90 mg/dL (Less than 150)
[2018-05-21 05:46] LABS: Potassium 2.7 mmol/L (3.5-5.1)
[2018-05-21] MEDS ORDERED: Levothyroxine 175 MCG TAB PO SCH (06:00)
[2018-05-21] MEDS: NS 0.9% w/ 20 MEQ KCL 1,000 ML IV SCH ×3 (06:33→23:01)
[2018-05-21] MEDS: Cepastat Lozenges 1 LOZ PO PRN ×3 (06:54→19:56)
[2018-05-21] MEDS: Potassium Chloride 20 MEQ TAB PO SCH ×2 (09:28→17:27)
[2018-05-21] MEDS: Nystatin 500,000 UNITS/5 ML UDCUP SSW SCH ×4 (09:31→20:05)
[2018-05-21] MEDS: DULoxetine 30 MG CAP PO SCH (09:32)
[2018-05-21] MEDS: Pramipexole Di-HCl 1 MG TAB PO SCH ×3 (09:32→20:06)
[2018-05-21] MEDS: Topiramate 25 MG TAB PO SCH ×2 (12:14→20:07)
[2018-05-21] MEDS: Enoxaparin Sodium 80 MG/0.8 ML SYRINGE SC SCH (19:56)
[2018-05-22] MEDS: Levothyroxine Sodium 125 MCG TAB PO SCH (06:11)
[2018-05-22] MEDS: Cepastat Lozenges 1 LOZ PO PRN ×2 (06:13→09:56)
[2018-05-22 07:17] LABS: #Basophils 0.1 thou/uL (0.0-0.2); #Eosinphils 0.5 thou/uL (0.0-0.7); #Lymphocytes 2.1 thou/uL (1.20-3.40); #Monocytes 0.8 thou/uL (0.11-0.59); #Neutrophils 5.2 thou/uL (1.40-6.50); %Basophils 1.1 % (0.0-1.0); %Eosinophils 5.9 % (0.0-10.0); %Lymphocytes 23.8 % (21.0-51.0); %Monocytes 9.4 % (0.0-10.0); %Neutrophils 59.8 % (42.0-75.0); Mean Corpuscular HGB CONC 33.4 g/dL (32.0-36.0); Mean Corpuscular Hemoglobin 33.5 pg (27.0-31.0); Mean Platelet Volume 8.1 fL (7.4-10.4); Platelet Count 243 thou/uL (130-400); Red Blood Cell (RBC) Count 2.99 mill/uL (4.20-5.40); White Blood Cell (WBC) Count 8.6 thou/uL (4.8-10.8)
[2018-05-22 07:23] LABS: Anion Gap 16 mmol/L (10-20); BUN (Urea Nitrogen) 80 mg/dL (9.8-20.1); Calc. Creatinine Clearance 22 mL/min (70-130); Calcium 8.4 mg/dL (7.8-10.44); Carbon Dioxide 12 mmol/L (23-31); Chloride 117 mmol/L (98-107); Estimated GFR-MDRD 17; Glucose 99 mg/dL (83-110); Sodium 142 mmol/L (136-145)
[2018-05-22 07:26] LABS: Potassium 2.6 mmol/L (3.5-5.1)
[2018-05-22] MEDS: Nystatin 500,000 UNITS/5 ML UDCUP SSW SCH ×4 (09:47→21:14)
[2018-05-22] MEDS: DULoxetine 30 MG CAP PO SCH (09:47)
[2018-05-22] MEDS: Pramipexole Di-HCl 1 MG TAB PO SCH ×3 (09:48→20:38)
[2018-05-22] MEDS: Topiramate 25 MG TAB PO SCH ×2 (09:49→20:39)
[2018-05-22] MEDS: Potassium Chloride 20 MEQ TAB PO SCH ×4 (09:50→20:39)
[2018-05-22] MEDS: NS 0.9% w/ 20 MEQ KCL 1,000 ML IV SCH ×2 (09:51→09:52)
[2018-05-22] MEDS ORDERED: Diphenoxylate HCl/Atropine Tablet PO SCH (10:00)
[2018-05-22] MEDS ORDERED: Metoprolol Tartrate 5 MG/5 ML VIAL IVP SCH (12:15)
[2018-05-22] MEDS: Enoxaparin Sodium 80 MG/0.8 ML SYRINGE SC SCH (20:38)
[2018-05-22] MEDS: Metoprolol Tartrate 25 MG TAB PO SCH (20:39)
[2018-05-23] MEDS: Diphenoxylate HCl/Atropine Tablet PO PRN ×2 (01:16→09:54)
[2018-05-23] MEDS: NS 0.9% w/ 20 MEQ KCL 1,000 ML IV SCH ×2 (01:26→15:34)
[2018-05-23 05:57] LABS: Anion Gap 13 mmol/L (10-20); BUN (Urea Nitrogen) 64 mg/dL (9.8-20.1); Calc. Creatinine Clearance 35 mL/min (70-130); Carbon Dioxide 11 mmol/L (23-31); Chloride 122 mmol/L (98-107); Estimated GFR-MDRD 30; Glucose 96 mg/dL (83-110); Sodium 143 mmol/L (136-145)
[2018-05-23] MEDS: Levothyroxine Sodium 125 MCG TAB PO SCH (06:00)
[2018-05-23] MEDS: Nystatin 500,000 UNITS/5 ML UDCUP SSW SCH ×4 (09:50→21:16)
[2018-05-23] MEDS: Pramipexole Di-HCl 1 MG TAB PO SCH ×3 (09:51→21:15)
[2018-05-23] MEDS: Potassium Chloride 20 MEQ TAB PO SCH ×4 (09:51→21:16)
[2018-05-23] MEDS: Metoprolol Tartrate 25 MG TAB PO SCH ×2 (09:51→21:16)
[2018-05-23] MEDS: DULoxetine 30 MG CAP PO SCH (09:51)
[2018-05-23] MEDS: Topiramate 25 MG TAB PO SCH ×2 (09:52→21:15)
--- NOTE | 2018-05-23 13:27 | CON ---
DATE OF CONSULTATION: HISTORY OF PRESENT ILLNESS: The patient is a 78-year-old woman with a history of hypertension, who presented with weakness, diarrhea, and fever. The patient has a previous history of diastolic heart failure and mitral regurgitation. The patient has previously undergone several cardiac catheterizations and found to have only mild coronary artery disease. The patient was in her usual state of health when she started having flu-like symptoms. She became nauseated and developed severe diarrhea. The patient became weak and lightheaded and presented to the emergency room. The patient denied having any chest discomfort or palpitations. PAST MEDICAL HISTORY: 1. Hypertension. 2. Hypothyroidism. 3. Dyslipidemia. PAST SURGICAL HISTORY: Tonsillectomy, , appendectomy, hysterectomy, and cholecystectomy. ALLERGIES: PENICILLIN, ERYTHROMYCIN, AND LYRICA. SOCIAL HISTORY: Nonsmoker. MEDICATIONS: 1. Synthroid daily. 2. Topamax 100 b.i.d. 3. Plavix 75 mg daily. 4. Uloric 40 daily. 5. Protonix 40 daily. 6. Nitro-Dur 30 daily. 7. Celebrex 200 daily. 8. Lasix 80 b.i.d. 9. Prozac 30 daily. 10. Gabapentin 300 t.i.d. REVIEW OF SYSTEMS: Ten-point system otherwise unremarkable. Except for a bruise on her left side after a fall, otherwise unremarkable. PHYSICAL EXAMINATION: GENERAL: Obese woman, in mild distress. VITAL SIGNS: Blood pressure is 98/46. NECK: No jugular venous distention. LUNGS: Clear to auscultation. HEART: Irregular rate and rhythm. Normal S1 and S2 with a 2/6 holosystolic murmur. ABDOMEN: Nondistended. EXTREMITIES: Showed moderate bilateral edema. SKIN: Warm and dry. NEUROLOGIC: Nonfocal. VASCULAR: Radial pulses are 2+. LABORATORY DATA: Sodium 139, potassium 2.7, chloride 109, bicarb was 11, BUN was 98, and creatinine was 4.5. Her white blood cell count is 11.7, hemoglobin 10.3 , hematocrit 31.6, and platelets were 252. IMAGING DATA: Initial EKG revealed atrial fibrillation with a rapid ventricular response. IMPRESSION: 1. New-onset atrial fibrillation. 2. Viral gastroenteritis. 3. Acute renal failure. 4. Hyperthyroidism. 5. History of normal coronary artery. 6. History of diastolic heart failure. 7. History of mitral regurgitation. PLAN: This patient presents with new-onset atrial fibrillation. She was found to be hyperthyroid. The patient has converted to normal sinus rhythm. The patient developed acute renal failure. She has been taking a lot of nonsteroidal medication including Motrin and Celebrex. She also has been on high doses of diuretics. The patient is being hydrated with IV saline. The patient converted to normal sinus rhythm. She has been maintained on Lovenox. We will follow this patient with you through her hospitalization. Job ID: [id number] [facility]
[2018-05-24] MEDS: NS 0.9% w/ 20 MEQ KCL 1,000 ML IV SCH (02:24)
[2018-05-24] MEDS: Diphenoxylate HCl/Atropine Tablet PO PRN ×2 (02:25→08:17)
[2018-05-24] MEDS: Levothyroxine Sodium 125 MCG TAB PO SCH (05:04)
[2018-05-24 07:41] LABS: Anion Gap 13 mmol/L (10-20); BUN (Urea Nitrogen) 44 mg/dL (9.8-20.1); Calc. Creatinine Clearance 52 mL/min (70-130); Calcium 8.8 mg/dL (7.8-10.44); Carbon Dioxide 11 mmol/L (23-31); Chloride 123 mmol/L (98-107); Estimated GFR-MDRD 47; Glucose 101 mg/dL (83-110); Potassium 3.1 mmol/L (3.5-5.1); Sodium 144 mmol/L (136-145)
[2018-05-24] MEDS: Topiramate 25 MG TAB PO SCH ×2 (08:17→20:28)
[2018-05-24] MEDS: Benzonatate 100 MG CAP PO SCH ×4 (08:17→20:31)
[2018-05-24] MEDS: Potassium Chloride 20 MEQ TAB PO SCH ×4 (08:17→20:26)
[2018-05-24] MEDS: Pramipexole Di-HCl 1 MG TAB PO SCH ×3 (08:17→20:26)
[2018-05-24] MEDS: Nystatin 500,000 UNITS/5 ML UDCUP SSW SCH ×4 (08:18→20:26)
[2018-05-24] MEDS: Apixaban 5 MG TAB PO SCH (08:18)
[2018-05-24] MEDS: Metoprolol Tartrate 25 MG TAB PO SCH ×2 (08:18→20:26)
[2018-05-24] MEDS: DULoxetine 30 MG CAP PO SCH (08:18)
--- NOTE | 2018-05-24 19:22 | CON ---
DATE OF CONSULTATION: 05/24/2018 This is a GI inpatient consultation note. REASON FOR CONSULTATION: Diarrhea. HISTORY OF PRESENT ILLNESS: Kurt Bro is a 78-year-old woman, who was admitted to the hospital 4 days ago after having had a recent fall, found to be quite dehydrated with acute kidney injury and new onset atrial fibrillation. This is in the context of recent diarrhea. She says a 2 to 3 weeks ago, she had a fairly acute onset of nausea. No vomiting, but significant diarrhea. The diarrhea never really improved now for more than 2 weeks. She is having up to 10 or more bowel movements in a day. She has already had 4 loose green urgent watery stools today. There has been no rectal bleeding. Her nausea has resolved. She is really not having any abdominal pain. She denies any sick contacts. Stool evaluation has been negative for pathogens, negative FOBT. Her acute kidney injury has improved. It looks like she is back in normal sinus rhythm. She was started on Eliquis. She reports she had a colonoscopy several years ago, but that was a poor bowel preparation and an incomplete exam. Notably, she has a daughter, who had colon cancer in her late 40s. REVIEW OF SYSTEMS: Full review of systems including constitutional, head, eyes, ears, nose, throat, GI, , cardiovascular, respiratory, musculoskeletal, and neurologic systems are negative except as noted in the HPI. PAST MEDICAL HISTORY: Hiatal hernia, angina, hypertension, osteoarthritis, gout, spinal stenosis, restless legs syndrome, TIA, GERD, depression, hypothyroidism, appendectomy, cholecystectomy, hysterectomy, and atrial fibrillation, newly diagnosed in May 2018. FAMILY HISTORY: Her daughter had colon cancer in her late 40s. SOCIAL HISTORY: She does not smoke or drink alcohol. ALLERGIES: DARVON, ERYTHROMYCIN, GABAPENTIN, LIDOCAINE, LYRICA, MORPHINE, AND PENICILLIN. OUTPATIENT MEDICATIONS: 1. Synthroid 175 mcg daily. 2. Topamax 100 mg b.i.d. 3. Uloric 40 mg daily. 4. Plavix 75 mg daily. 5. Promethazine 25 mg p.r.n. for nausea. 6. Nitroglycerin p.r.n. 7. Protonix 40 mg daily. 8. Imdur 30 mg daily. 9. Duloxetine 30 mg daily. 10. Gabapentin. 11. Mirapex. 12. Celebrex 200 mg daily. 13. Lasix 80 mg b.i.d. PHYSICAL EXAMINATION: VITAL SIGNS: Temperature 97.9, pulse 68, blood pressure 93/57, and 95% oxygen saturation on room air. GENERAL: A 78-year-old woman, lying in bed comfortably, in no acute distress. MENTAL: Alert, fully oriented, pleasant, conversational, can give a detailed coherent history. SKIN: No jaundice. No rashes were palpable. She is a bit pale. EYES: No scleral icterus. Extraocular movements intact. ENT: Mucous membranes moist. No oral lesions. LYMPH: No submandibular or supraclavicular lymphadenopathy. THYROID: Nontender to palpation. HEART: Rhythm appears to be regular at this time. No murmur appreciated. LUNGS: Clear to auscultation bilaterally. ABDOMEN: Bowel sounds present. Soft and nontender to palpation throughout. EXTREMITIES: 2+ bilateral lower extremity edema. VESSELS: Radial pulses 2+ bilaterally. NEURO: Cranial nerves 2 through 12 intact bilaterally. No focal deficits. LABORATORY STUDIES: Hemoglobin 10, WBC 8.6, and platelets 243. BUN 44 and creatinine 1.12 down from 5.22 on admission. TSH is 0.09. FOBT negative. C. difficile negative. Campylobacter negative. Stool culture negative. ASSESSMENT AND PLAN: 1. Chronic diarrhea, now greater than 2 weeks. 2. Dehydration with acute kidney injury, now improved with rehydration. 3. New onset atrial fibrillation, now back in normal sinus rhythm. I had a long discussion with the patient today about her diarrhea over the past greater than 2 weeks. This is fairly acute in onset. Consider possibly a viral gastroenteritis now, followed by postinfectious irritable bowel syndrome. Also need to keep in mind possibility of microscopic colitis or development of inflammatory bowel disease. Given the persistence for diarrhea, as well as her family history of colon cancer, I do think it would be reasonable to proceed with colonoscopy for further investigation. The patient is agreeable to this. We will need to hold her Eliquis starting now, and plan for bowel preparation tomorrow evening with a colonoscopy the following day. Thank you for the consultation. Please call anytime with questions or concerns. Job ID: [id number]
[2018-05-25] MEDS: Levothyroxine Sodium 125 MCG TAB PO SCH (05:28)
[2018-05-25 07:34] LABS: Anion Gap 11 mmol/L (10-20); BUN (Urea Nitrogen) 30 mg/dL (9.8-20.1); Calc. Creatinine Clearance 63 mL/min (70-130); Calcium 8.6 mg/dL (7.8-10.44); Carbon Dioxide 14 mmol/L (23-31); Chloride 121 mmol/L (98-107); Estimated GFR-MDRD 58; Glucose 91 mg/dL (83-110); Sodium 143 mmol/L (136-145)
[2018-05-25] MEDS: Potassium Chloride 20 MEQ TAB PO SCH ×4 (08:41→20:04)
[2018-05-25] MEDS: DULoxetine 30 MG CAP PO SCH (08:41)
[2018-05-25] MEDS: Metoprolol Tartrate 25 MG TAB PO SCH ×2 (08:42→20:03)
[2018-05-25] MEDS: Pramipexole Di-HCl 1 MG TAB PO SCH ×3 (08:42→20:03)
[2018-05-25] MEDS: Nystatin 500,000 UNITS/5 ML UDCUP SSW SCH ×4 (09:00→20:09)
[2018-05-25] MEDS: Benzonatate 100 MG CAP PO SCH ×4 (09:00→20:02)
[2018-05-25] MEDS: Topiramate 25 MG TAB PO SCH ×2 (13:24→20:04)
--- NOTE | 2018-05-25 17:26 | PRG ---
DATE OF SERVICE: 05/25/2018 SUBJECTIVE: The patient reports her diarrhea is persisting. She is having no abdominal pain. She is tolerating clear liquids. OBJECTIVE: VITAL SIGNS: Temperature 98.1, pulse 66, respiratory rate 20, and blood pressure 95/58. CHEST: Clear. CARDIOVASCULAR: Regular rate and rhythm. ABDOMEN: Soft and nontender without organomegaly or masses. LABORATORY DATA: Shows a white blood cell count of 8.6, hemoglobin 10, hematocrit 30. Chemistry showed potassium 3.0, CO2 of 14, BUN 30. TSH of 0.903. ASSESSMENT: 1. Acute on chronic diarrhea-the patient's last colonoscopy several years ago and was apparently a poor prep. 2. Low TSH-this may indicate excessive thyroid replacement. RECOMMENDATIONS: 1. GoLYTELY prep after clear liquid, evening meal. 2. Colonoscopy in a.m. 3. Continue to hold Eliquis. 4. Adjust thyroid replacement per Dr. Ríos. Job ID: [id number]
[2018-05-25] MEDS ORDERED: GoLYTELY 4,000 ml Bottle PO SCH (18:30)
[2018-05-26] MEDS: Acetaminophen 325 MG TAB PO PRN (02:43)
[2018-05-26 06:04] LABS: Anion Gap 13 mmol/L (10-20); BUN (Urea Nitrogen) 21 mg/dL (9.8-20.1); Calc. Creatinine Clearance 56 mL/min (70-130); Calcium 9.6 mg/dL (7.8-10.44); Carbon Dioxide 19 mmol/L (23-31); Chloride 116 mmol/L (98-107); Estimated GFR-MDRD 51; Glucose 97 mg/dL (83-110); Potassium 3.2 mmol/L (3.5-5.1); Sodium 145 mmol/L (136-145)
[2018-05-26] MEDS: Levothyroxine Sodium 125 MCG TAB PO SCH (06:10)
[2018-05-26] MEDS: Metoprolol Tartrate 25 MG TAB PO SCH ×2 (09:12→20:28)
[2018-05-26] MEDS: Benzonatate 100 MG CAP PO SCH ×4 (09:14→20:13)
[2018-05-26] MEDS: DULoxetine 30 MG CAP PO SCH (09:15)
[2018-05-26] MEDS: Nystatin 500,000 UNITS/5 ML UDCUP SSW SCH ×4 (09:15→20:13)
[2018-05-26] MEDS: Pramipexole Di-HCl 1 MG TAB PO SCH ×3 (09:16→20:27)
[2018-05-26] MEDS: Potassium Chloride 20 MEQ TAB PO SCH ×4 (09:16→20:28)
[2018-05-26] MEDS: Topiramate 25 MG TAB PO SCH ×2 (09:16→20:28)
[2018-05-26] MEDS ORDERED: PROPOFOL 200 MG/20 ML VIAL ONE (13:19)
[2018-05-26] MEDS ORDERED: Promethazine HCl 25 MG/ML VIAL SLOW IVP PRN (14:00)
[2018-05-26] MEDS ORDERED: Promethazine HCl 25 MG/ML VIAL IM PRN (14:00)
[2018-05-26] MEDS ORDERED: Ondansetron HCl/PF 4 MG/2 ML Vial IVP PRN (14:00)
[2018-05-26] MEDS: Apixaban 5 MG TAB PO SCH (20:27)
--- NOTE | 2018-05-26 21:18 | OP ---
DATE OF PROCEDURE: 05/26/2018 PROCEDURE PERFORMED: Colonoscopy with biopsy. PREPROCEDURE DIAGNOSIS: Chronic diarrhea. POSTPROCEDURE DIAGNOSES: 1. Fairly normal colon. Some areas of mild submucosal hemorrhage in the descending and sigmoid colon of unclear etiology. 2. Two to three small scattered aphthous ulcers less than a mm in size in the ascending colon. Biopsies were obtained from both of these areas and submitted to pathology. 3. Normal terminal ileum. RECOMMENDATIONS: 1. Lactose-free diet. 2. Consider adjustment of Synthroid dosages in light of low TSH indicating over replacement. 3. Consider celiac serologies with tissue transglutaminase IgA and total IgA. 4. Await biopsies. DESCRIPTION OF PROCEDURE: The patient was informed of the risks, benefits, possible complication of endoscopy including perforation, bleeding risk, reaction to medication and aspiration, and informed consent was obtained. The patient was brought to the Endoscopy Suite where she was sedated in a gradual fashion. Once she was comfortable, rectal exam was performed. The endoscope was then advanced through the anal canal through the colon to the cecum, which was identified by ileocecal valve and appendiceal orifice. few small two to three 1 mm aphthous erosions in the ascending colon. These were biopsied. No other lesions were seen in this area. The transverse colon was normal. The ascending colon was normal some submucosal erythema. Biopsies were taken from this area as well. Retroflexed views were normal. The scope was removed. The patient tolerated the procedure well with no complications. Job ID: [id number]
[2018-05-27] MEDS: Levothyroxine Sodium 125 MCG TAB PO SCH (04:54)
[2018-05-27 07:47] LABS: Anion Gap 9 mmol/L (10-20); BUN (Urea Nitrogen) 19 mg/dL (9.8-20.1); Calc. Creatinine Clearance 64 mL/min (70-130); Calcium 8.6 mg/dL (7.8-10.44); Carbon Dioxide 16 mmol/L (23-31); Chloride 114 mmol/L (98-107); Estimated GFR-MDRD 60; Glucose 95 mg/dL (83-110); Potassium 3.3 mmol/L (3.5-5.1); Sodium 136 mmol/L (136-145)
[2018-05-27] MEDS: Pramipexole Di-HCl 1 MG TAB PO SCH ×2 (08:14→13:44)
[2018-05-27] MEDS: Apixaban 5 MG TAB PO SCH (08:14)
[2018-05-27] MEDS: Potassium Chloride 20 MEQ TAB PO SCH ×2 (08:14→13:44)
[2018-05-27] MEDS: DULoxetine 30 MG CAP PO SCH (08:15)
[2018-05-27] MEDS: Metoprolol Tartrate 25 MG TAB PO SCH ×2 (08:15→08:47)
[2018-05-27] MEDS: Topiramate 25 MG TAB PO SCH (08:15)
[2018-05-27] MEDS: Nystatin 500,000 UNITS/5 ML UDCUP SSW SCH ×2 (08:16→13:46)
[2018-05-27] MEDS: Benzonatate 100 MG CAP PO SCH ×2 (08:16→13:44)
[2018-05-27 08:51] LABS: Folate (Folic Acid) 11.5 ng/mL (7.0-31.4)
--- NOTE | 2018-05-27 15:04 | PRG ---
DATE OF SERVICE: 05/27/2018 SUBJECTIVE: The patient is feeling better. She is tolerating diet very well and drinking lots of fluids. She is still having diarrhea. She had 6 bowel movements yesterday, 3 so far today. OBJECTIVE: VITAL SIGNS: Temperature is 96.0, pulse 68, respiratory rate 14, blood pressure 98/64. HEENT: Unremarkable. NECK: Supple. CHEST: Clear. CARDIOVASCULAR: Regular rate and rhythm. ABDOMEN: Soft, nontender without organomegaly or masses. LABORATORY DATA: Show a potassium 3.3, CO2 of 16. ASSESSMENT: 1. Acute on chronic diarrhea. 2. Low TSH. RECOMMENDATIONS: 1. Await histopathology. 2. Okay to use Imodium or Lomotil. 3. Suggest thyroid replacement per Dr. Ríos. 4. Stable for discharge from GI standpoint. Job ID: [id number]
[2018-05-27 15:49] VITALS: BP 102/64; TEMP 98.3
[2018-05-29 18:24] LABS: EliA Celiac New Method **** NEW METHOD ****; t-Transglutaminase (tTG) IgA 0.2 EliAU/mL (<7 Negative)
== END 2018-05-27 17:48 | disposition home or self-care (01) | DRG 309 ==
LOC: ERS 10:51 → IMCU/EMU 15:54 → T4-B 05-23 20:42
PROVIDERS: ADMIT Specialist; ATTEND Specialist
PROC: 0DBK8ZX Excision of Ascending Colon, Via Natural or Artificial Opening Endoscopic, Diagnostic (ICD-10-PCS; principal; 2018-05-20)
DX: I48.91 Unspecified atrial fibrillation (principal); I50.32 Chronic diastolic (congestive) heart failure; N17.9 Acute kidney failure, unspecified; B37.0 Candidal stomatitis; E78.5 Hyperlipidemia, unspecified; K21.9 Gastro-esophageal reflux disease without esophagitis; G89.29 Other chronic pain; I25.10 Atherosclerotic heart disease of native coronary artery without angina pectoris; I11.0 Hypertensive heart disease with heart failure; E86.0 Dehydration; F32.9 Major depressive disorder, single episode, unspecified; S20.219A Contusion of unspecified front wall of thorax, initial encounter; K52.9 Noninfective gastroenteritis and colitis, unspecified
CPT/HCPCS: 36415; 51701; 71250; 74177; 80048; 80053; 80061; 81003; 81015; 82274; 82607; 82746; 83516; 84443; 85025; 87045; 87046; 87081; 87324; 87430; 87449; 87899; 88305; 88313; 93005; 93010; 93306; 96361; 96365; 96376; A4353; J1650; J2704; J7050

== ENCOUNTER 2018-06-10 09:59 | Outpatient (CLI) | payer MEDICARE, MEDICAID | END 2018-06-10 10:00 | disposition home or self-care (01) | LOC: BICMAMMO 09:59 | PROVIDERS: ATTEND Specialist | DX: Z12.31 Encounter for screening mammogram for malignant neoplasm of breast (principal); R92.1 Mammographic calcification found on diagnostic imaging of breast | CPT/HCPCS: 77063; 77067 ==

== ENCOUNTER 2018-09-16 09:48 | Outpatient (CLI) | payer MEDICARE, MEDICAID ==
--- NOTE | 2018-09-16 10:24 | RAD ---
EXAM: Chest 2 views: HISTORY: I 10, E 87.6, J 44.1 COMPARISON: None. FINDINGS: Very large hiatal hernia somewhat larger than prior study. Heart size: Lumbar thoracic scoliosis. Generalized spondylosis. Lungs:Clear of acute process. Atherosclerotic changes of the aorta. No confluent pneumonia, overt edema, pleural effusion, pneumothorax, or other significant acute proce ss. IMPRESSION: Very large hiatal hernia. Moderate cardiomegaly. Little change from prior study. Atherosclerosis of the aorta. No acute intrathoracic disease.
== END 2018-09-16 09:49 | disposition home or self-care (01) ==
LOC: RAD 09:48
PROVIDERS: ATTEND Specialist
DX: J44.1 Chronic obstructive pulmonary disease with (acute) exacerbation (principal); E87.6 Hypokalemia; I10 Essential (primary) hypertension; I51.7 Cardiomegaly; K44.9 Diaphragmatic hernia without obstruction or gangrene; I70.0 Atherosclerosis of aorta
CPT/HCPCS: 36415; 71046; 80053; 85025

== ENCOUNTER 2020-06-19 12:44 | Inpatient (IN) | payer MEDICARE, MEDICAID ==
[2020-06-19 13:39] LABS: #Basophils 0.1 thou/uL (0.0-0.2); #Eosinphils 0.1 thou/uL (0.0-0.7); #Monocytes 0.9 thou/uL (0.11-0.59); #Neutrophils 5.1 thou/uL (1.40-6.50); %Basophils 1.6 % (0.0-1.0); %Eosinophils 1.9 % (0.0-10.0); %Lymphocytes 14.2 % (21.0-51.0); %Monocytes 12.5 % (0.0-10.0); %Neutrophils 69.9 % (42.0-75.0); Hemoglobin 10.3 g/dL (12.0-16.0); Mean Corpuscular HGB CONC 33.7 g/dL (32.0-36.0); Mean Corpuscular Hemoglobin 35.1 pg (27.0-31.0); Mean Platelet Volume 7.3 fL (7.4-10.4); Platelet Count 212 thou/uL (130-400); RBC Distribution Width 13.6 % (11.5-14.5); Red Blood Cell (RBC) Count 2.95 mill/uL (4.20-5.40); White Blood Cell (WBC) Count 7.3 thou/uL (4.8-10.8)
--- NOTE | 2020-06-19 14:00 | ULT ---
EXAM: Bilateral lower extremity venous Doppler US HISTORY: bilateral lower extremity edema and pain FINDINGS: Grayscale, color-flow, Doppler evaluation, spectral analysis of the bilateral lower extremities venou s structures is performed with 2-D imaging. The bilateral common femoral, superficial femoral, popliteal, posterior tibial, proximal greater saphenous and profunda femoral veins are imaged. There is normal luminal compressibility, flow, and augmentation in the visualized deep venous structu res of the bilateral lower extremities. IMPRESSION: No evidence of a deep vein thrombosis in either lower extremity.
[2020-06-19 14:01] LABS: ALT (SGPT) 16 U/L (8-55); AST (SGOT) 24 U/L (5-34); Albumin 3.1 g/dL (3.4-4.8); Alkaline Phosphatase 63 U/L (40-110); Anion Gap 14 mmol/L (10-20); BUN (Urea Nitrogen) 20 mg/dL (9.8-20.1); Bilirubin, Total 0.4 mg/dL (0.2-1.2); Calc. Creatinine Clearance 0 mL/min (70-130); Calcium 8.4 mg/dL (7.8-10.44); Carbon Dioxide 18 mmol/L (23-31); Chloride 110 mmol/L (98-107); Globulin 3.1 g/dL (2.4-3.5); Glucose 99 mg/dL (83-110); Potassium 3.9 mmol/L (3.5-5.1); Protein, Total 6.2 g/dL (5.8-8.1); Sodium 138 mmol/L (136-145)
[2020-06-19 14:23] LABS: CKMB 2.6 ng/mL (0-6.6)
[2020-06-19 17:51] LABS: SARS-CoV-2 NAA Rapid Test Not Detected (NotDetected)
[2020-06-19 18:08] LABS: Troponin I 0.045 ng/mL (< 0.028)
[2020-06-19 21:12] LABS: Troponin I 0.046 ng/mL (< 0.028)
[2020-06-19] MEDS ORDERED: Ondansetron PF 4 MG/2 ML Vial IVP PRN (23:02)
[2020-06-19] MEDS ORDERED: Furosemide 40 MG/4 ML VIAL SLOW IVP SCH (23:45)
[2020-06-20] MEDS: Dextrose 5% in Water 1,000 ML IV SCH (00:44)
[2020-06-20 05:07] LABS: #Basophils 0.1 thou/uL (0.0-0.2); #Eosinphils 0.1 thou/uL (0.0-0.7); #Lymphocytes 1.2 thou/uL (1.20-3.40); #Monocytes 1.1 thou/uL (0.11-0.59); #Neutrophils 5.9 thou/uL (1.40-6.50); %Basophils 0.9 % (0.0-1.0); %Monocytes 13.5 % (0.0-10.0); %Neutrophils 70.5 % (42.0-75.0); Hemoglobin 10.5 g/dL (12.0-16.0); Mean Corpuscular HGB CONC 33.3 g/dL (32.0-36.0); Mean Corpuscular Hemoglobin 34.4 pg (27.0-31.0); Mean Platelet Volume 7.6 fL (7.4-10.4); Platelet Count 241 thou/uL (130-400); RBC Distribution Width 13.4 % (11.5-14.5); Red Blood Cell (RBC) Count 3.06 mill/uL (4.20-5.40); White Blood Cell (WBC) Count 8.3 thou/uL (4.8-10.8)
[2020-06-20 05:28] LABS: Anion Gap 15 mmol/L (10-20); BUN (Urea Nitrogen) 20 mg/dL (9.8-20.1); Calc. Creatinine Clearance 64 mL/min (70-130); Calcium 8.8 mg/dL (7.8-10.44); Carbon Dioxide 21 mmol/L (23-31); Chloride 105 mmol/L (98-107); Glucose 119 mg/dL (83-110); Iron Binding Capacity, Total 209 mcg/dL (265-497); Potassium 3.6 mmol/L (3.5-5.1); Sodium 137 mmol/L (136-145)
[2020-06-20] MEDS: Levothyroxine Sodium 125 MCG TAB PO SCH (05:30)
[2020-06-20 05:52] LABS: Thyroid Stimulating Hormone 1.0142 uIU/mL (0.35-4.94)
[2020-06-20] MEDS: Budesonide 0.5 MG/2 ML NEB NEB SCH ×2 (07:23→18:55)
[2020-06-20] MEDS ORDERED: Clopidogrel Bisulfate 75 MG TAB PO SCH (09:00)
[2020-06-20] MEDS: Metolazone 5 MG TAB PO SCH (09:35)
[2020-06-20] MEDS: Spironolactone 25 MG TAB PO SCH ×2 (09:35→09:36)
[2020-06-20] MEDS: Apixaban 5 MG TAB PO SCH ×2 (09:35→21:42)
[2020-06-20] MEDS ORDERED: Furosemide 40 MG/4 ML VIAL SLOW IVP SCH (11:45)
--- NOTE | 2020-06-20 11:55 | HP ---
CHIEF COMPLAINT ON ADMISSION: Exacerbation of CHF and cellulitis with elevated troponins. HISTORY OF PRESENT ILLNESS: The patient is an 80-year-old female with longstanding history of CHF, diastolic in nature, who for several weeks has been having increasing weakness. She has also had increased swelling in her lower extremities, more than usual. She was given oral antibiotics for what was felt to be a cellulitis, but these have failed to improve her condition. Over the last 2 to 3 day, she has been too weak to get out of bed, on which point, her son brought her into the emergency room for further evaluation. She denies any chest pain, but complains of being short winded with minimal exertion. She uses oxygen at home for COPD. Her throat has been sore as well, but denies any fever. She has had a nonproductive cough. In the ER, she is COVID negative. PAST MEDICAL HISTORY: Significant as mentioned before, long-standing CHF, diastolic in nature; angina; hypertension; diffuse arthritis; restless legs syndrome; TIAs; history of rheumatic fever; GERD. She has chronic pain due to her arthritis. She has had gout in the past and she has severe lower extremity lymphedema. Atrial fibrillation, spinal stenosis, frequent falls, and COPD. PAST SURGICAL HISTORY: Includes appendectomy, cholecystectomy, section x3, hysterectomy, tonsillectomy, and numerous catheterizations. PSYCHIATRIC HISTORY: Significant for depression. SOCIAL HISTORY: Does not drink or smoke, and lives with her son in a distant small community. Her son is disabled and unable to help her very much. ALLERGIES: SHE IS ALLERGIC TO DARVON, ERYTHROMYCIN, GABAPENTIN, LIDOCAINE, LYRICA, MORPHINE, AND PENICILLIN. MEDICATIONS ON ADMISSION: Include; 1. Potassium 20 mEq b.i.d. 2. Furosemide 80 mg daily. 3. Topiramate 50 mg b.i.d. 4. Duloxetine 30 mg capsule two daily. 5. Imdur 30 mg bedtime. 6. Levothyroxine 125 mcg q.a.m. 7. Protonix 40 mg p.o. daily. 8. Nitrostat 0.4 mg tablets sublingual q.5 minutes p.r.n. chest pain. 9. Metolazone 10 mg every 2 days. 10. Methotrexate 10 mg tablet every 7 days. 11. She takes iron daily for chronic anemia. 12. Budesonide 0.5 mg neb treatments b.i.d. 13. Eliquis 5 mg b.i.d. 14. Tramadol 50 mg p.o. q.6 hours p.r.n. pain. 15. Metoprolol tartrate 50 mg daily. REVIEW OF SYSTEMS: At the time of admission; CONSTITUTIONAL: Admits to weakness, shortness of breath, fatigue, but denies fever. HEENT: Admits to sore throat, but denies drainage from eyes, ears, nose, or throat. CHEST: Admits to cough and shortness of breath. CARDIOVASCULAR: Denies palpitations or chest pain. GI: Denies nausea, vomiting, or diarrhea. : Denies dysuria or blood in urine or stool. MUSCULOSKELETAL: Has diffuse weakness in all major muscle groups and does admits to joint pain in all major joints. SKIN: Has erythematous hot rash in bilateral lower extremities. NEUROLOGIC: Denies headaches, trouble with mentation, or blurred vision. LYMPHATICS: She has extreme 3+ to 4+ lower extremity edema chronically and is unable to get help at home to apply her lymphedema pumps. PHYSICAL EXAMINATION: At the time of admission; VITAL SIGNS: Blood pressure is 147/85, pulse 70, respirations 20, temperature 99.1. Pain scale at 10/10 at the time of admission. O2 saturation 97% on 2 L of oxygen, and she weighs 189 pounds 1 ounce. GENERAL: This is an elderly female, alert, oriented, cooperative, in no acute distress. HEENT: Normocephalic, atraumatic. Pupils with diminished reactivity bilaterally at 2 mm. Arcus senilis bilaterally. TMs, nares, and pharynx are clear with clear postnasal drip. NECK: Supple. Trachea midline. No mass. No bruits. CHEST: With generally diminished breath sounds in both lungs. BREAST: Deferred. HEART: Regular rate and rhythm without murmur. ABDOMEN: Obese, nontender without appreciable organomegaly. : Deferred. EXTREMITIES: With 3 to 4+ bilateral lower extremity edema with areas of erythema from 2 cm distal to the patella down to the top of the lateral malleolus, it is bright, warm to touch, tender to touch. There are areas of oozing, yellow crusting fluid bilaterally. NEUROLOGIC: Cranial nerves are intact. Unable to test gait and cerebellar function at this time. Sensory exam is grossly intact. LABORATORY DATA: Lab work on admission showed WBC 7.3, hemoglobin 10.3, hematocrit 30.7, with platelets of 212. Sodium is 138, potassium 3.9, chloride 110, CO2 is 18, BUN 20, creatinine 0.85 with a GFR of 64, glucose 99. Liver functions unremarkable. Her BNP is elevated at 376. Troponin-I is elevated at 0.056. TSH returned normal at 1.01. Folate is low at 6.8. Chest x-ray and echo are pending. ASSESSMENT ON ADMISSION: 1. Exacerbation of congestive heart failure - diastolic in nature. 2. Cellulitis, bilateral lower extremities. 3. Elevated troponins, probably due to demand ischemia. 4. Atrial fibrillation, currently rate controlled. PLAN: Will be, admit to the hospital. Begin gradual diuresis. Cardiology consultation, echocardiogram, and nonstress test for evaluation of troponins and serial re-evaluation. Also, we will begin after blood cultures obtained, vancomycin 1 g q.12. Face time was 45 min with 15 min paperwork and dictation. Job ID: [id number] [facility]
--- NOTE | 2020-06-20 12:08 | CON ---
DATE OF CONSULTATION: HISTORY OF PRESENT ILLNESS: The patient is an 80-year-old woman who presents for evaluation of weakness, lower extremity swelling, and fever. The patient has a long history of diastolic heart failure. The patient has had several cardiac catheterizations. The most recent was in 2016, and she was found to have normal left ventricular systolic function and had normal coronary arteries. The patient is being admitted with diastolic heart failure. She also has paroxysmal atrial fibrillation and is on chronic anticoagulation therapy. The patient states that for the past 2 weeks she has had worsening lower extremity swelling. She also has noted erythema over her both lower legs. The patient reported having fever and weakness. She cannot walk. She presented to the emergency room for further evaluation. PAST MEDICAL HISTORY: 1. Congestive heart failure secondary to diastolic dysfunction. 2. Paroxysmal atrial fibrillation. 3. Hypertension. 4. Morbid obesity. 5. Pulmonary hypertension. 6. Dyslipidemia. PAST SURGICAL HISTORY: 1. Tonsillectomy. 2. Appendectomy. 3. Hysterectomy. 4. . 5. Cholecystectomy. ALLERGIES: ERYTHROMYCIN, GABAPENTIN, LIDOCAINE, MORPHINE,PENICILLIN, AND PROPOXYPHENE. MEDICATIONS: 1. Topiramate 100 b.i.d. 2. Promethazine 25 q.i.d. p.r.n. 3. Potassium 20 daily. 4. Protonix 40 daily. 5. Metolazone 10 every other day. 6. Metoprolol 25 XL daily. 7. Methotrexate 10 mg every 7 days. 8. Imdur 30 q.a.m. 9. Lasix 40 every other day. 10. Iron sulfate 325 daily. 11. Duloxetine 60 mg daily. 12. Eliquis 5 mg daily. 13. Synthroid 120 mcg daily. SOCIAL HISTORY: I think I told that she was a nonsmoker. REVIEW OF SYSTEMS: Ten-point system otherwise unremarkable. No history of easy bruising or bleeding. PHYSICAL EXAMINATION: GENERAL: Morbidly obese woman, in no acute distress. VITAL SIGNS: Blood pressure 115/58. NECK: No jugular venous distention. LUNGS: Coarse breath sounds bilateral. HEART: Irregular rate and rhythm with a 3/6 systolic murmur. ABDOMEN: Distended. EXTREMITIES: Severe bilateral edema with erythema both lower extremities. VASCULAR: Radial pulses 2+. LABORATORY DATA: Sodium 137, potassium 3.6, chloride 105, bicarbonate 21, BUN 20, and creatinine 0.94. Her troponin was 0.046. BNP is 376. EKG normal sinus rhythm, right bundle-branch block with a T-wave abnormality suggestive of ischemia. IMPRESSION: 1. Cellulitis. 2. Diastolic heart failure. 3. Paroxysmal atrial fibrillation. 4. Pulmonary hypertension. 5. Morbid obesity. PLAN: This patient presents with cellulitis and diastolic heart failure. The patient is being treated with IV Lasix. She has been started on IV antibiotics. We will check the patient's echocardiogram to re-evaluate her left ventricular function. The patient's prognosis is guarded. We will follow this patient with you through her hospitalization. Job ID: [id number] [facility]
[2020-06-20] MEDS: Vancomycin 1 GM in Premix Bag 1 BAG IVPB SCH (13:10)
--- NOTE | 2020-06-20 13:49 | RAD ---
CHEST 2 VIEWS: Date: 06/20/2020 COMPARISON: 09/16/2018. HISTORY: Follow-up exam. FINDINGS: Cardiomegaly. Pulmonary vessels and hilum are normal. Costophrenic angles are clear. There is a large hiatal hernia. Chronic changes of lung parenchyma. Superimposed interstitial infiltrates are noted. No pneumothorax. IMPRESSION: 1. Cardiomegaly. 2. Interstitial infiltrate superimposed upon chronic lung parenchymal changes. Correlate for pneumon ia. 3. Large hiatal hernia. POS: PPP
[2020-06-20] MEDS: DULoxetine 30 MG CAP PO SCH (21:42)
[2020-06-20] MEDS ORDERED: Pramipexole Di-HCl 1 MG TAB PO SCH (23:59)
[2020-06-21 04:53] LABS: Anion Gap 13 mmol/L (10-20); BUN (Urea Nitrogen) 22 mg/dL (9.8-20.1); Calc. Creatinine Clearance 60 mL/min (70-130); Calcium 8.5 mg/dL (7.8-10.44); Carbon Dioxide 25 mmol/L (23-31); Chloride 99 mmol/L (98-107); Glucose 110 mg/dL (83-110); Potassium 3.5 mmol/L (3.5-5.1); Sodium 133 mmol/L (136-145)
[2020-06-21 05:29] LABS: Band 17 % (5-11); Eosinophils 4 % (0-10); Hemoglobin 9.1 g/dL (12.0-16.0); Lymphocytes 12 % (21-51); MDiff Complete? YES; Mean Corpuscular HGB CONC 33.4 g/dL (32.0-36.0); Mean Corpuscular Hemoglobin 33.8 pg (27.0-31.0); Mean Platelet Volume 7.5 fL (7.4-10.4); Monocytes 15 % (0-10); Neutrophil 52 % (42-75); Platelet Count 233 thou/uL (130-400); RBC Distribution Width 13.5 % (11.5-14.5); Red Blood Cell (RBC) Count 2.69 mill/uL (4.20-5.40); White Blood Cell (WBC) Count 8.6 thou/uL (4.8-10.8)
[2020-06-21] MEDS: Levothyroxine Sodium 125 MCG TAB PO SCH (06:05)
[2020-06-21] MEDS: Acetaminophen 325 MG TAB PO PRN ×2 (06:14→18:16)
[2020-06-21] MEDS: Budesonide 0.5 MG/2 ML NEB NEB SCH ×2 (07:52→18:38)
[2020-06-21] MEDS: Metolazone 5 MG TAB PO SCH (09:30)
[2020-06-21] MEDS: Spironolactone 25 MG TAB PO SCH ×2 (09:30→09:32)
[2020-06-21] MEDS: Pramipexole Di-HCl 1 MG TAB PO SCH ×3 (09:30→20:50)
[2020-06-21] MEDS: Apixaban 5 MG TAB PO SCH ×2 (09:31→20:50)
--- NOTE | 2020-06-21 12:04 | NM ---
EXAM: Nuclear medicine cardiac perfusion examination with ejection fraction HISTORY: Elevated troponin TECHNIQUE: Rest images: 10.0 mCi technetium 99m sestamibi Stress images: 30.8 mCi of technetium 99m sestamibi; Lexiscan COMPARISON: None FINDINGS: Tomographic images: No fixed or reversible perfusion defects. Gated images: Normal wall motion and ejection fraction of greater than 70%. EDV: 60 mL LHR: 0.5 TID: 1.1 IMPRESSION: No evidence of ischemia
--- NOTE | 2020-06-21 12:05 | RAD ---
EXAM: Chest 2 views: HISTORY: CHF COMPARISON: 06/20/2019 1:36 PM FINDINGS: There is an enlarged but stable cardiomediastinal silhouette. There is a large hiatal hernia. Bilat eral pulmonary vascular enlargement is seen. Increased interstitial markings are present. No acute osseous abnormality. IMPRESSION: Stable exam
[2020-06-21] MEDS: Vancomycin 1 GM in Premix Bag 1 BAG IVPB SCH (12:18)
[2020-06-21] MEDS ORDERED: Regadenoson 0.4 MG/5 ML SYRINGE ONE (17:35)
[2020-06-21] MEDS: Dextrose 5% in Water 1,000 ML IV SCH (18:24)
[2020-06-21] MEDS: DULoxetine 30 MG CAP PO SCH (20:50)
[2020-06-22] MEDS: Levothyroxine Sodium 125 MCG TAB PO SCH (06:01)
[2020-06-22] MEDS: Acetaminophen 325 MG TAB PO PRN ×2 (06:02→22:30)
[2020-06-22] MEDS: Budesonide 0.5 MG/2 ML NEB NEB SCH ×2 (07:44→19:06)
[2020-06-22] MEDS ORDERED: Furosemide 40 MG/4 ML VIAL SLOW IVP SCH (08:15)
--- NOTE | 2020-06-22 09:12 | RAD ---
Exam: Chest one view HISTORY:Fever. Increased shortness of breath. Comparison: 07/25/2017 FINDINGS: Cardiac silhouette:There is evidence of a large hiatal hernia obscuring the cardiac silhouette. Aorta: Unremarkable Pulmonary vessels: Normal Costophrenic angles: Clear LUNGS: Diminished lung volumes. Scattered interstitial and alveolar opacities may represent chronic c hange with superimposed infiltrate or edema. Pneumothorax: None Osseous abnormalities: None IMPRESSION: 1. Scattered interstitial and alveolar opacities likely representing chronic change with superimposed edema or infiltrate 2. Stable left-sided hernia.
[2020-06-22] MEDS: Pramipexole Di-HCl 1 MG TAB PO SCH ×3 (09:32→22:30)
[2020-06-22] MEDS: Metolazone 5 MG TAB PO SCH (09:32)
[2020-06-22] MEDS: Apixaban 5 MG TAB PO SCH ×2 (09:32→22:26)
[2020-06-22] MEDS: Spironolactone 25 MG TAB PO SCH (09:33)
[2020-06-22] MEDS ORDERED: cefTRIAXone\\ROCEPHIN 1 GM in Sodium Chloride 0.9% 100 ML IVPB SCH (10:45)
[2020-06-22] MEDS ORDERED: Azithromycin 500 MG in Sodium Chloride 0.9% 250 ML 250 ML IVPB SCH (10:45)
[2020-06-22 11:31] LABS: Vancomycin, Trough 11.5 ug/mL
[2020-06-22] MEDS: Vancomycin 1 GM in Premix Bag 1 BAG IVPB SCH (11:37)
[2020-06-22 12:59] LABS: SARS-CoV-2 NAA Rapid Test Not Detected (NotDetected)
[2020-06-22] MEDS: Benzonatate 100 MG CAP PO PRN ×2 (16:18→22:31)
[2020-06-22 19:15] LABS: SARS-CoV-2 IgG Ab Non-Reactive (NonReactive); SARS-CoV-2 IgG Index 0.03 S/CO (< 1.40)
[2020-06-22] MEDS: DULoxetine 30 MG CAP PO SCH (22:26)
[2020-06-23] MEDS: Levothyroxine Sodium 125 MCG TAB PO SCH (05:44)
[2020-06-23] MEDS: Budesonide 0.5 MG/2 ML NEB NEB SCH ×2 (06:58→19:08)
[2020-06-23] MEDS: Metolazone 5 MG TAB PO SCH (08:38)
[2020-06-23] MEDS: Furosemide 40 MG TAB PO SCH ×2 (08:38→08:44)
[2020-06-23] MEDS: Apixaban 5 MG TAB PO SCH ×2 (08:39→18:58)
[2020-06-23] MEDS: Pramipexole Di-HCl 1 MG TAB PO SCH ×3 (08:39→18:58)
[2020-06-23] MEDS: Spironolactone 25 MG TAB PO SCH (08:39)
[2020-06-23 11:13] LABS: White Blood Cell (WBC) Count 8.1 thou/uL (4.8-10.8)
[2020-06-23 11:14] LABS: Anion Gap 16 mmol/L (10-20); BUN (Urea Nitrogen) 26 mg/dL (9.8-20.1); Calc. Creatinine Clearance 56 mL/min (70-130); Carbon Dioxide 26 mmol/L (23-31); Chloride 94 mmol/L (98-107); Glucose 104 mg/dL (83-110); Potassium 3.8 mmol/L (3.5-5.1); Sodium 132 mmol/L (136-145)
[2020-06-23 11:46] LABS: Hemoglobin 9.8 g/dL (12.0-16.0); Mean Corpuscular HGB CONC 32.5 g/dL (32.0-36.0); Mean Corpuscular Hemoglobin 33.4 pg (27.0-31.0); Mean Platelet Volume 7.6 fL (7.4-10.4); Platelet Count 278 thou/uL (130-400); RBC Distribution Width 13.5 % (11.5-14.5); Red Blood Cell (RBC) Count 2.94 mill/uL (4.20-5.40)
[2020-06-23 11:49] LABS: Eosinophils 3 % (0-10); Lymphocytes 11 % (21-51); MDiff Complete? YES; Monocytes 18 % (0-10); Neutrophil 68 % (42-75); Platelet Morphology Comment Appears Adequate
[2020-06-23] MEDS: Vancomycin 1 GM in Premix Bag 1 BAG IVPB SCH (12:16)
--- NOTE | 2020-06-23 12:36 | PDOC.CPN ---
- Subjective Date: 06/23/20 Time: 12:35 Interval history: Mainly complaining of weakness No CP SOB slightly improved Awaiting rehab placement - Objective Allergies/Adverse Reactions: Allergies Allergy/AdvReac Type Severity Reaction Status Date / Time cefdinir Allergy Verified 06/20/20 00:07 erythromycin base Allergy Verified 06/20/20 00:07 [Erythromycin Base] gabapentin Allergy Verified 06/20/20 00:07 lidocaine Allergy Verified 06/20/20 00:07 morphine Allergy Verified 06/20/20 00:07 Penicillins Allergy Verified 06/20/20 00:07 pregabalin [From Lyrica] Allergy Verified 06/20/20 00:07 propoxyphene HCl Allergy Verified 06/20/20 00:07 [From Darvon] Visit Medications: Current Medications Acetaminophen (Acetaminophen 325 Mg Tab) 650 mg PO Q4H PRN PRN Reason: Headache/Fever or Pain Last Admin: 06/22/20 22:30 Dose: 650 mg Documented by: Albuterol/Ipratropium (Ipratropium/Albuterol Sulfate 3 Ml Neb) 3 ml NEB TID-RT [facility] Last Admin: 06/23/20 12:08 Dose: 3 ml Documented by: Albuterol/Ipratropium (Ipratropium/Albuterol Sulfate 3 Ml Neb) 3 ml NEB Q4H PRN PRN Reason: .SHORTNESS OF BREATH Apixaban (Apixaban 5 Mg Tab) 5 mg PO BID [facility] Last Admin: 06/23/20 08:39 Dose: 5 mg Documented by: Benzonatate (Benzonatate 100 Mg Cap) 200 mg PO Q6H PRN PRN Reason: Cough Last Admin: 06/22/20 22:31 Dose: 200 mg Documented by: Budesonide (Budesonide 0.5 Mg/2 Ml Neb) 0.5 mg NEB BID-RT [facility] Last Admin: 06/23/20 06:58 Dose: 0.5 mg Documented by: Duloxetine HCl (Duloxetine 30 Mg Cap) 60 mg PO HS [facility] Last Admin: 06/22/20 22:26 Dose: 60 mg Documented by: Furosemide (Furosemide 40 Mg Tab) 40 mg PO DAILY-AC [facility] Last Admin: 06/23/20 08:38 Dose: 40 mg Documented by: Furosemide (Furosemide 40 Mg Tab) 40 mg PO QAM [facility] Last Admin: 06/23/20 08:44 Dose: Not Given Documented by: Dextrose/Water (D5w) 1,000 mls @ 0 mls/hr IV .Q0M [facility] Last Admin: 06/21/20 18:24 Dose: 1,000 mls Documented by: Vancomycin HCl 1 gm/ Device 200 mls @ 200 mls/hr IVPB 1200 [facility] Last Admin: 06/23/20 12:16 Dose: 200 mls Documented by: Levofloxacin 250 mg/ Device 50 mls @ 100 mls/hr IVPB Q24HR [facility] Last Admin: 06/23/20 12:16 Dose: 50 mls Documented by: Isosorbide Mononitrate (Isosorbide Mononitrate Er 30 Mg Tab) 30 mg PO HS [facility] Last Admin: 06/22/20 22:27 Dose: 30 mg Documented by: Levothyroxine Sodium (Levothyroxine Sodium 125 Mcg Tab) 125 mcg PO 0600 [facility] Last Admin: 06/23/20 05:44 Dose: 125 mcg Documented by: Metolazone (Metolazone 5 Mg Tab) 10 mg PO 0830 [facility] Last Admin: 06/23/20 08:38 Dose: 10 mg Documented by: Metoprolol Succinate (Metoprolol Succinate Xl 25 Mg Tab) 25 mg PO DAILY [facility] Last Admin: 06/23/20 08:39 Dose: Not Given Documented by: Miscellaneous Medication (Pharmacy To Dose Vancomycin) 1 each IVPB PRN PRN PRN Reason: Pharmacy to dose Ondansetron HCl (Ondansetron Pf 4 Mg/2 Ml Vial) 4 mg IVP Q6H PRN PRN Reason: Nausea/Vomiting Pantoprazole Sodium (Pantoprazole 40 Mg Tab) 40 mg PO DAILY [facility] Last Admin: 06/23/20 08:39 Dose: 40 mg Documented by: Pramipexole Dihydrochloride (Pramipexole Di-Hcl 1 Mg Tab) 2 mg PO TID [facility] Last Admin: 06/23/20 08:39 Dose: 2 mg Documented by: Sodium Chloride (Flush - Normal Saline 10 Ml Syringe) 10 ml IVF Q12HR [facility] Last Admin: 06/23/20 08:40 Dose: 10 ml Documented by: Sodium Chloride (Flush - Normal Saline 10 Ml Syringe) 10 ml IVF PRN PRN PRN Reason: Saline Flush Last Admin: 06/21/20 12:19 Dose: 10 ml Documented by: Spironolactone (Spironolactone 25 Mg Tab) 25 mg PO QA[facility] Last Admin: 06/23/20 08:39 Dose: 25 mg Documented by: Venlafaxine HCl (Venlafaxine Hcl 75 Mg Tab) 75 mg PO QAM [facility] Last Admin: 06/23/20 08:39 Dose: 75 mg Documented by: Vital Signs & Weight: Vital Signs Temp Pulse Resp BP Pulse Ox 06/23/20 11:56 100 F H 65 15 101/46 L 91 L 06/23/20 08:42 98.0 F 64 20 115/68 95 06/23/20 08:00 95 06/23/20 06:57 64 18 95 06/23/20 02:06 95 Admit Weight 181 lb Weight 180 lb 3.2 oz - Physical Exam General: alert & oriented x3 HEENT: mucus membranes moist Neck: supple neck Cardiac: no murmur Lungs: normal exam - Labs Result Diagrams: 06/23/20 10:37 06/23/20 10:37 Troponin/CKMB CK-MB (CK-2) 2.6 ng/mL (0-6.6) 06/19/20 13:29 Troponin I 0.046 ng/mL (< 0.028) H 06/19/20 20:36 - Assessment/Plan Assessment/Plan: Diastolic dysfunciton weakness Pulmonary HTN cellulitis obesity No changes in meds diuresis Awaiting placemeent encourage PT
--- NOTE | 2020-06-23 14:44 | EKG ---
Test Reason : Blood Pressure : / mmHG Vent. Rate : 062 BPM Atrial Rate : 062 BPM P-R Int : 170 ms QRS Dur : 134 ms QT Int : 448 ms P-R-T Axes : 084 015 -21 degrees QTc Int : 454 ms Sinus rhythm with Premature atrial complexes with Right bundle branch block --complete Possible Lateral infarct , age undetermined T wave abnormality, consider inferior ischemia Abnormal ECG Confirmed by PAVEL ALONZO, SAEED Freeman ([id number]), technical editor AYO BOTELLO ([id number]) on 06/23/2020 2:43:42 PM Referred By: Confirmed By:SAEED ZHAO MD
[2020-06-23] MEDS ORDERED: Furosemide 20 MG/2 ML VIAL SLOW IVP SCH (17:15)
[2020-06-23] MEDS: Acetaminophen 325 MG TAB PO PRN (18:58)
[2020-06-23] MEDS: DULoxetine 30 MG CAP PO SCH (18:58)
[2020-06-24] MEDS: Budesonide 0.5 MG/2 ML NEB NEB SCH ×3 (05:35→19:21)
[2020-06-24] MEDS: Levothyroxine Sodium 125 MCG TAB PO SCH (05:35)
[2020-06-24 06:32] LABS: Mean Corpuscular HGB CONC 33.3 g/dL (32.0-36.0); Mean Corpuscular Hemoglobin 33.9 pg (27.0-31.0); Mean Platelet Volume 7.6 fL (7.4-10.4); Platelet Count 313 thou/uL (130-400); RBC Distribution Width 13.4 % (11.5-14.5); Red Blood Cell (RBC) Count 2.95 mill/uL (4.20-5.40); White Blood Cell (WBC) Count 7.9 thou/uL (4.8-10.8)
[2020-06-24 06:49] LABS: Anion Gap 15 mmol/L (10-20); BUN (Urea Nitrogen) 33 mg/dL (9.8-20.1); Calc. Creatinine Clearance 44 mL/min (70-130); Calcium 9.2 mg/dL (7.8-10.44); Carbon Dioxide 30 mmol/L (23-31); Chloride 91 mmol/L (98-107); Glucose 95 mg/dL (83-110); Potassium 3.6 mmol/L (3.5-5.1); Sodium 132 mmol/L (136-145)
[2020-06-24 06:57] LABS: Band 1 % (5-11); Eosinophils 2 % (0-10); Hypochromia SLIGHT = 6-15 cells (100X) (0-5/hpf); Lymphocytes 14 % (21-51); MDiff Complete? YES; Macrocytosis SLIGHT = 6-15 cells (100X) (0-5/hpf); Monocytes 15 % (0-10); Neutrophil 68 % (42-75); Platelet Morphology Comment Appears Adequate
[2020-06-24] MEDS: Apixaban 5 MG TAB PO SCH ×2 (08:45→21:05)
[2020-06-24] MEDS: Metolazone 5 MG TAB PO SCH (08:45)
[2020-06-24] MEDS: Furosemide 40 MG TAB PO SCH ×2 (08:45)
[2020-06-24] MEDS: Pramipexole Di-HCl 1 MG TAB PO SCH ×3 (08:45→21:05)
[2020-06-24] MEDS: Spironolactone 25 MG TAB PO SCH (08:46)
[2020-06-24] MEDS: Vancomycin 1 GM in Premix Bag 1 BAG IVPB SCH (13:25)
--- NOTE | 2020-06-24 15:22 | RAD ---
PA AND LATERAL CHEST: History: Congestive failure. Comparison: 06-22-2020 FINDINGS: Large hiatal hernia is seen. Heart size is enlarged. Pulmonary vessels are engorged with some increas ed interstitial lung markings. Lung changes are slightly patchy, particularly in the right lung field . Changes are minimally more prominent than the prior exam. IMPRESSION: Cardiomegaly with findings that would suggest an element of pulmonary edema. I cannot exclude there b e some associated infiltrates given the somewhat peripheral patchy lung changes seen in the right gui g. POS: OFF
[2020-06-24] MEDS: DULoxetine 30 MG CAP PO SCH (21:05)
[2020-06-25] MEDS: Levothyroxine Sodium 125 MCG TAB PO SCH (06:18)
[2020-06-25 06:50] LABS: Anion Gap 16 mmol/L (10-20); BUN (Urea Nitrogen) 41 mg/dL (9.8-20.1); Calc. Creatinine Clearance 39 mL/min (70-130); Calcium 9.5 mg/dL (7.8-10.44); Carbon Dioxide 30 mmol/L (23-31); Chloride 89 mmol/L (98-107); Glucose 107 mg/dL (83-110); Potassium 3.7 mmol/L (3.5-5.1); Sodium 131 mmol/L (136-145)
[2020-06-25] MEDS ORDERED: Zolpidem Tartrate 5 MG TAB PO PRN (07:51)
[2020-06-25] MEDS ORDERED: Furosemide 20 MG/2 ML VIAL SLOW IVP SCH (08:00)
[2020-06-25] MEDS: Budesonide 0.5 MG/2 ML NEB NEB SCH ×2 (08:27→18:49)
[2020-06-25] MEDS: Folic Acid 1 MG TAB PO SCH (08:32)
[2020-06-25] MEDS: Acetaminophen 325 MG TAB PO PRN (08:32)
[2020-06-25] MEDS: Apixaban 5 MG TAB PO SCH ×2 (08:33→21:07)
[2020-06-25] MEDS: Metolazone 5 MG TAB PO SCH (08:33)
[2020-06-25] MEDS: Spironolactone 25 MG TAB PO SCH (08:33)
[2020-06-25] MEDS: Furosemide 40 MG TAB PO SCH ×2 (08:34)
[2020-06-25] MEDS: Pramipexole Di-HCl 1 MG TAB PO SCH ×3 (08:38→21:06)
[2020-06-25] MEDS: Mupirocin 2% Ointment 22 GM Tube TOP SCH ×3 (09:59→21:08)
[2020-06-25] MEDS: Docusate 100 MG CAP PO SCH ×2 (09:59→21:07)
[2020-06-25 11:58] VITALS: TEMP 98.5
[2020-06-25] MEDS: Vancomycin 1 GM in Premix Bag 1 BAG IVPB SCH (11:58)
[2020-06-25 12:28] LABS: Vancomycin, Trough 21.9 ug/mL
[2020-06-25 14:39] VITALS: BMI 38.0
[2020-06-25] MEDS: DULoxetine 30 MG CAP PO SCH (21:07)
[2020-06-26] MEDS: Levothyroxine Sodium 125 MCG TAB PO SCH (05:58)
[2020-06-26] MEDS: Acetaminophen 325 MG TAB PO PRN (05:59)
[2020-06-26 06:30] LABS: Anion Gap 15 mmol/L (10-20); BUN (Urea Nitrogen) 50 mg/dL (9.8-20.1); Calc. Creatinine Clearance 34 mL/min (70-130); Calcium 9.3 mg/dL (7.8-10.44); Carbon Dioxide 31 mmol/L (23-31); Chloride 90 mmol/L (98-107); Glucose 104 mg/dL (83-110); Potassium 3.9 mmol/L (3.5-5.1); Sodium 132 mmol/L (136-145)
[2020-06-26 08:21] VITALS: BP 92/57
[2020-06-26] MEDS: Budesonide 0.5 MG/2 ML NEB NEB SCH (08:42)
[2020-06-26] MEDS: Furosemide 40 MG TAB PO SCH ×2 (09:06→09:11)
[2020-06-26] MEDS: Pramipexole Di-HCl 1 MG TAB PO SCH ×2 (09:10→14:47)
[2020-06-26] MEDS: Folic Acid 1 MG TAB PO SCH (09:10)
[2020-06-26] MEDS: Spironolactone 25 MG TAB PO SCH (09:11)
[2020-06-26] MEDS: Mupirocin 2% Ointment 22 GM Tube TOP SCH ×2 (09:11→14:47)
[2020-06-26] MEDS: Docusate 100 MG CAP PO SCH (09:11)
[2020-06-26] MEDS: Apixaban 5 MG TAB PO SCH (09:11)
[2020-06-26] MEDS ORDERED: Vancomycin HCl 750 MG in Sodium Chloride 0.9% 250 ML 250 ML IVPB SCH (12:00)
--- NOTE | 2020-06-27 23:59 | PQF ---
Dear : Nicko Thomas Date 06/28/2020 Please exercise your independent, professional judgment in responding to the clarification form. Clinical indicators are provided on the bottom of this form for your review Can you please further clarify the diagnosis of the patient? Please check appropriate box(es): [ ] Type 2 MN (T2MI) secondary to demand ischemia [ ] demand ischemia without MN [ ] Other diagnosis please specify [ ] Unable to determine Physician Signature: Date/Time: For continuity of documentation, please document condition throughout progress notes and discharge summary. Thank You. To be completed by CDI/Coding staff for physician review: Present Clinical Indicators - Signs / Symptoms / Labs Results and Location in Medical Record [ x ] T wave inversion in 3aVF, no ST segment elevation or depression ED Provider pg.3 [ x ] Elevated troponins probably due to demand ischemia H and P pg.3 [ x ] Exacerbation of CHF- diastolic in nature H and P pg.3 [ x ] No evidence of ischemia Nuclear Test nuclear 06/20 [ x ] T wave abnormality, consider inferior ischemia Electrocardiogram 06/19 [ x ] Troponin I: 0.056H, 0.045H, 0.046H Laboratory Present Risk Factors Results and Location in Medical Record [ x ] 80 years old H and P pg.1 [ x ] HTN H and P pg.1 [ x ] CHF H and P pg.1 [ x ] angina H and P pg.1 [ x ] Morbid obesity Consult pg.1 [ x ] AFIB Consult pg.1 [ x ] HLD Consult pg.1 Present Treatments Results and Location in Medical Record [ x ] Cardiology Consult Dr. Buenrostro 06/20 [ x ] Stress test Nuclear Test nuclear 06/20 [ x ] IV Fluids MAR [ x ] Lasix 40mg IV MAR [ x ] Eliquis 5 mg Oral JUL 03 [ x ] Plavix 75mg Oral JUL 03 This is a permanent part of the Medical Record [facility]
--- NOTE | 2020-06-30 20:24 | STRESS ---
Acquisition Time: 2020-06-21 10:07:07 Total Exercise Time: 00:01:00 Test Indications: ELEVATED TROPONIN Medications: Protocol: LEXISCAN Max HR: 109 BPM 78% of Pred: 139 BPM Max BP: 104/058 mmHG Max Work Load: 1.0 METS RESTING ECG: NORMAL SINUS RHYTHM AT 77 BPM WITH COMPLETE RIGHT BUNDLE BRANCH BLOCK AND RARE PAC'S SYMPTOMS: NONE NORMAL BP RESPONSE ECTOPY: OCCASIONAL PAC'S ECG STRESS: NO SIGNIFICANT CHANGES INTERPRETATION: INDETERMINATE ECG/AWAIT NUCLEAR IMAGES FOR DEFINITIVE DIAGNOSIS Confirmed by SANIYA PENG M.D. ([id number] on 06/30/2020 8:23:43 PM Referred By: MD Linda HUBER Confirmed By:SANIYA PENG M.D.
== END 2020-06-26 15:26 | DRG 602 ==
LOC: ERS 12:44 → 2NO 15:11 → T4-B 06-23 00:27
PROVIDERS: ADMIT Specialist; ATTEND Specialist
DX: L03.116 Cellulitis of left lower limb (principal); I50.33 Acute on chronic diastolic (congestive) heart failure; Z20.822 Contact with and (suspected) exposure to COVID-19; L03.115 Cellulitis of right lower limb; J44.9 Chronic obstructive pulmonary disease, unspecified; M10.9 Gout, unspecified; M06.9 Rheumatoid arthritis, unspecified; G25.81 Restless legs syndrome; K21.9 Gastro-esophageal reflux disease without esophagitis; M48.00 Spinal stenosis, site unspecified; I48.0 Paroxysmal atrial fibrillation; I27.20 Pulmonary hypertension, unspecified; E66.01 Morbid (severe) obesity due to excess calories; E78.5 Hyperlipidemia, unspecified; G89.29 Other chronic pain; F32.9 Major depressive disorder, single episode, unspecified; R29.6 Repeated falls; Z99.81 Dependence on supplemental oxygen; Z90.49 Acquired absence of other specified parts of digestive tract; Z90.710 Acquired absence of both cervix and uterus; Z88.0 Allergy status to penicillin; Z88.1 Allergy status to other antibiotic agents; Z88.8 Allergy status to other drugs, medicaments and biological substances; Z79.890 Hormone replacement therapy; Z79.899 Other long term (current) drug therapy; Z79.01 Long term (current) use of anticoagulants; Z68.37 Body mass index [BMI] 37.0-37.9, adult
CPT/HCPCS: 0240U; 36415; 71045; 71046; 78452; 80048; 80053; 80202; 82274; 82553; 82607; 82746; 83550; 83605; 83880; 84443; 84484; 85025; 86769; 87040; 93005; 93017; 93306; 93970; 94640; A9500; J1940; J1956; J2785; J3370; J7050; J7620; J7626; U0002

== ENCOUNTER 2020-07-11 00:15 | Inpatient (IN) | payer MEDICARE, MEDICAID ==
[2020-07-11 09:02] LABS: #Basophils 0.1 thou/uL (0.0-0.2); #Eosinphils 0.3 thou/uL (0.0-0.7); #Lymphocytes 1.6 thou/uL (1.20-3.40); #Monocytes 0.3 thou/uL (0.11-0.59); #Neutrophils 3.6 thou/uL (1.40-6.50); %Basophils 2.3 % (0.0-1.0); %Eosinophils 4.8 % (0.0-10.0); %Lymphocytes 27.5 % (21.0-51.0); %Monocytes 4.4 % (0.0-10.0); Hemoglobin 11.2 g/dL (12.0-16.0); Mean Corpuscular Hemoglobin 33.2 pg (27.0-31.0); Mean Platelet Volume 7.5 fL (7.4-10.4); Platelet Count 244 thou/uL (130-400); RBC Distribution Width 15.2 % (11.5-14.5); Red Blood Cell (RBC) Count 3.36 mill/uL (4.20-5.40); Reticulocyte Count 2.2 % (0.5-1.5); White Blood Cell (WBC) Count 5.9 thou/uL (4.8-10.8)
[2020-07-11 09:11] LABS: INR-International Normal Ratio 1.2; PTT 34.9 sec (22.9-36.1); Prothrombin Time 15.1 sec (12.0-14.7)
[2020-07-11 09:12] LABS: D-Dimer Test 3.04 *mcg/mL (0.27-0.43)
[2020-07-11 09:30] LABS: ALT (SGPT) 22 U/L (8-55); AST (SGOT) 42 U/L (5-34); Albumin 3.3 g/dL (3.4-4.8); Alkaline Phosphatase 75 U/L (40-110); Anion Gap 18 mmol/L (10-20); BUN (Urea Nitrogen) 38 mg/dL (9.8-20.1); Bilirubin, Total 0.4 mg/dL (0.2-1.2); Calc. Creatinine Clearance 37 mL/min (70-130); Calcium 9.7 mg/dL (7.8-10.44); Carbon Dioxide 31 mmol/L (23-31); Chloride 93 mmol/L (98-107); Globulin 4.9 g/dL (2.4-3.5); Glucose 82 mg/dL (83-110); Potassium 5.2 mmol/L (3.5-5.1); Protein, Total 8.2 g/dL (5.8-8.1); Sodium 137 mmol/L (136-145)
[2020-07-11 09:53] LABS: Bacteria/HPF None Seen HPF (None Seen); Bilirubin Negative (Negative); Blood, Urine Negative (Negative); Clarity Clear (Clear); Glucose, Urine (Dipstick) Normal (Negative); Ketone, Urine Negative (Negative); Leukocyte Negative Leu/uL (Negative); Nitrite Negative (Negative); Protein, Urine (Dipstick) Negative (Neg-Trace); RBC/HPF None Seen HPF (0-3); Specific Gravity, Urine 1.016 (1.002-1.036); Squamous Epithelial 0-3 HPF (0-3); Urobilinogen Normal mg/dL (Less than 2); WBC/HPF 0-3 HPF (0-3); Yeast-Budding 2+ HPF (None Seen); pH, Urine 7.5 (5.0-9.0)
[2020-07-11 09:56] LABS: Urine Culture Reflex No No
[2020-07-11] MEDS ORDERED: Iopamidol-370 76% 500 ML 1 ML ONE (11:59)
[2020-07-11] MEDS ORDERED: Pantoprazole 40 MG VIAL IVP SCH (12:00)
[2020-07-11] MEDS: Dextrose 5 % And 0.9 % NaCl 1,000 ML IV SCH (12:10)
[2020-07-11] MEDS ORDERED: Pantoprazole 40 MG VIAL ONE (12:23)
[2020-07-11] MEDS ORDERED: Lorazepam 2 MG/ML VIAL ONE (13:53)
[2020-07-11] MEDS ORDERED: Lorazepam 2 MG/ML VIAL SLOW IVP SCH (14:00)
[2020-07-11] MEDS: Acetaminophen 325 MG TAB PO PRN (20:43)
[2020-07-12] MEDS: Dextrose 5 % And 0.9 % NaCl 1,000 ML IV SCH ×3 (02:46→17:15)
[2020-07-12] MEDS: Levothyroxine 100 MCG SDV SLOW IVP SCH (05:04)
[2020-07-12 08:38] LABS: #Basophils 0.1 thou/uL (0.0-0.2); #Eosinphils 0.4 thou/uL (0.0-0.7); #Lymphocytes 1.5 thou/uL (1.20-3.40); #Monocytes 0.2 thou/uL (0.11-0.59); #Neutrophils 2.7 thou/uL (1.40-6.50); %Basophils 2.6 % (0.0-1.0); %Eosinophils 8.4 % (0.0-10.0); %Lymphocytes 29.3 % (21.0-51.0); %Monocytes 4.9 % (0.0-10.0); %Neutrophils 54.8 % (42.0-75.0); Hemoglobin 10.4 g/dL (12.0-16.0); Mean Corpuscular HGB CONC 31.6 g/dL (32.0-36.0); Mean Corpuscular Hemoglobin 32.8 pg (27.0-31.0); Mean Platelet Volume 7.3 fL (7.4-10.4); Platelet Count 228 thou/uL (130-400); RBC Distribution Width 14.9 % (11.5-14.5); Red Blood Cell (RBC) Count 3.19 mill/uL (4.20-5.40)
[2020-07-12] MEDS: Sodium Chloride 0.9% (PF) 10 ML VIAL FS PRN (08:54)
[2020-07-12] MEDS: Pantoprazole 40 MG VIAL IVP SCH (08:54)
[2020-07-12] MEDS: Acetaminophen 325 MG TAB PO PRN ×2 (08:57→17:15)
[2020-07-12 08:58] LABS: Anion Gap 11 mmol/L (10-20); BUN (Urea Nitrogen) 24 mg/dL (9.8-20.1); Calc. Creatinine Clearance 49 mL/min (70-130); Carbon Dioxide 32 mmol/L (23-31); Chloride 101 mmol/L (98-107); Glucose 106 mg/dL (83-110); Potassium 3.6 mmol/L (3.5-5.1); Sodium 140 mmol/L (136-145)
[2020-07-12] MEDS ORDERED: Aspirin Chewable 81 MG TAB PO SCH (09:00)
[2020-07-13] MEDS: Dextrose 5 % And 0.9 % NaCl 1,000 ML IV SCH ×2 (01:07→09:50)
[2020-07-13] MEDS: traMADol HCl 50 MG TAB PO PRN ×3 (01:52→18:22)
[2020-07-13 05:16] LABS: Hemoglobin A1c 5.3 % (4.0-6.0)
[2020-07-13 05:21] LABS: Anion Gap 12 mmol/L (10-20); BUN (Urea Nitrogen) 17 mg/dL (9.8-20.1); Calc. Creatinine Clearance 54 mL/min (70-130); Calcium 8.6 mg/dL (7.8-10.44); Carbon Dioxide 27 mmol/L (23-31); Cardiac Risk 3.2 (Less than 4.5); Chloride 108 mmol/L (98-107); Cholesterol 137 mg/dl (< 200 Desired); Glucose 99 mg/dL (83-110); HDL Cholesterol 43 mg/dL (>60 Neg Risk); LDL Cholesterol, Calculated 69 mg/dL; Potassium 3.5 mmol/L (3.5-5.1); Sodium 143 mmol/L (136-145); Triglycerides 125 mg/dL (Less than 150)
[2020-07-13 05:32] LABS: Anisocytosis SLIGHT = 6-15 cells (100X) (0-5/hpf); Band 1 % (5-11); Eosinophils 7 % (0-10); Hemoglobin 9.6 g/dL (12.0-16.0); Lymphocytes 25 % (21-51); MDiff Complete? YES; Mean Corpuscular Hemoglobin 31.2 pg (27.0-31.0); Mean Platelet Volume 7.4 fL (7.4-10.4); Monocytes 11 % (0-10); Neutrophil 53 % (42-75); Platelet Count 200 thou/uL (130-400); RBC Distribution Width 15.1 % (11.5-14.5); Red Blood Cell (RBC) Count 3.09 mill/uL (4.20-5.40); White Blood Cell (WBC) Count 4.6 thou/uL (4.8-10.8)
[2020-07-13] MEDS: Levothyroxine 100 MCG SDV SLOW IVP SCH (06:01)
[2020-07-13] MEDS: Aspirin Chewable 81 MG TAB PO SCH (09:42)
[2020-07-13] MEDS: Pantoprazole 40 MG VIAL IVP SCH (09:42)
[2020-07-13] MEDS ORDERED: Dextrose 5 % And 0.9 % NaCl 1,000 ML IV SCH (13:00)
[2020-07-13] MEDS ORDERED: Furosemide 20 MG/2 ML VIAL SLOW IVP SCH (13:00)
[2020-07-13] MEDS ORDERED: REPATHA INJ SC SCH (15:00)
[2020-07-13] MEDS: Acetaminophen 325 MG TAB PO PRN (20:34)
[2020-07-13] MEDS ORDERED: Fentanyl 100 MCG/2 ML VIAL SLOW IVP SCH (23:15)
[2020-07-14] MEDS: traMADol HCl 50 MG TAB PO PRN ×2 (05:17→21:51)
[2020-07-14] MEDS: Levothyroxine 100 MCG SDV SLOW IVP SCH (05:17)
[2020-07-14] MEDS: Furosemide 40 MG/4 ML VIAL SLOW IVP SCH (09:14)
[2020-07-14] MEDS: Pantoprazole 40 MG VIAL IVP SCH (09:14)
[2020-07-14] MEDS: Aspirin Chewable 81 MG TAB PO SCH (09:14)
[2020-07-14] MEDS: Acetaminophen 325 MG TAB PO PRN (09:35)
[2020-07-14] MEDS: Ondansetron ODT 4 MG TAB PO PRN (11:00)
[2020-07-15] MEDS: Levothyroxine Sodium 125 MCG TAB PO SCH (05:17)
[2020-07-15 05:38] LABS: #Basophils 0.1 thou/uL (0.0-0.2); #Eosinphils 0.6 thou/uL (0.0-0.7); #Lymphocytes 1.7 thou/uL (1.20-3.40); #Monocytes 0.5 thou/uL (0.11-0.59); #Neutrophils 2.3 thou/uL (1.40-6.50); %Eosinophils 11.8 % (0.0-10.0); %Lymphocytes 32.1 % (21.0-51.0); %Monocytes 9.9 % (0.0-10.0); %Neutrophils 44.2 % (42.0-75.0); Hemoglobin 9.3 g/dL (12.0-16.0); Mean Corpuscular HGB CONC 31.8 g/dL (32.0-36.0); Mean Corpuscular Hemoglobin 33.2 pg (27.0-31.0); Mean Platelet Volume 7.2 fL (7.4-10.4); Platelet Count 139 thou/uL (130-400); RBC Distribution Width 15.5 % (11.5-14.5); Red Blood Cell (RBC) Count 2.81 mill/uL (4.20-5.40); White Blood Cell (WBC) Count 5.3 thou/uL (4.8-10.8)
[2020-07-15 06:07] LABS: Anion Gap 12 mmol/L (10-20); BUN (Urea Nitrogen) 18 mg/dL (9.8-20.1); Calc. Creatinine Clearance 66 mL/min (70-130); Calcium 9.1 mg/dL (7.8-10.44); Carbon Dioxide 30 mmol/L (23-31); Chloride 103 mmol/L (98-107); Glucose 86 mg/dL (83-110); Potassium 3.7 mmol/L (3.5-5.1); Sodium 141 mmol/L (136-145)
[2020-07-15] MEDS: traMADol HCl 50 MG TAB PO PRN ×2 (06:18→16:54)
[2020-07-15] MEDS: Aspirin Chewable 81 MG TAB PO SCH (08:54)
[2020-07-15] MEDS: Furosemide 40 MG/4 ML VIAL SLOW IVP SCH (08:56)
[2020-07-15] MEDS: Acetaminophen 325 MG TAB PO PRN (18:33)
[2020-07-15] MEDS: Ondansetron ODT 4 MG TAB PO PRN (19:06)
[2020-07-15 19:53] LABS: CKMB 1.3 ng/mL (0-6.6)
[2020-07-16] MEDS: Acetaminophen 325 MG TAB PO PRN ×3 (03:01→16:41)
[2020-07-16] MEDS: Levothyroxine Sodium 125 MCG TAB PO SCH (06:07)
[2020-07-16] MEDS: Aspirin Chewable 81 MG TAB PO SCH (08:17)
[2020-07-16] MEDS: Polyethylene Glycol 3350 17 GM Packet PO SCH (08:42)
[2020-07-16] MEDS: traMADol HCl 50 MG TAB PO PRN ×2 (08:46→17:36)
[2020-07-16] MEDS: Pramipexole Di-HCl 1 MG TAB PO SCH ×3 (08:49→20:32)
[2020-07-16] MEDS: Fluconazole 100 MG TAB PO SCH (08:50)
[2020-07-17] MEDS: traMADol HCl 50 MG TAB PO PRN (05:22)
[2020-07-17] MEDS: Levothyroxine Sodium 125 MCG TAB PO SCH (05:23)
[2020-07-17] MEDS: Aspirin Chewable 81 MG TAB PO SCH (09:45)
[2020-07-17] MEDS: Apixaban 2.5 MG TAB PO SCH ×2 (09:45→22:13)
[2020-07-17] MEDS: Polyethylene Glycol 3350 17 GM Packet PO SCH (09:45)
[2020-07-17] MEDS: Fluconazole 100 MG TAB PO SCH (09:45)
[2020-07-17] MEDS: Sodium Chloride 0.9% (PF) 10 ML VIAL FS PRN (09:46)
[2020-07-17] MEDS: Pramipexole Di-HCl 1 MG TAB PO SCH ×3 (09:47→22:13)
[2020-07-17] MEDS ORDERED: Loratadine 10 MG TAB PO SCH (23:00)
[2020-07-17] MEDS ORDERED: Melatonin 3 MG TAB PO SCH (23:00)
[2020-07-18 05:04] LABS: Hemoglobin 9.5 g/dL (12.0-16.0); Mean Corpuscular HGB CONC 32.8 g/dL (32.0-36.0); Mean Platelet Volume 7.8 fL (7.4-10.4); Platelet Count 176 thou/uL (130-400); RBC Distribution Width 15.7 % (11.5-14.5); Red Blood Cell (RBC) Count 2.81 mill/uL (4.20-5.40); White Blood Cell (WBC) Count 8.4 thou/uL (4.8-10.8)
[2020-07-18 05:08] LABS: #Basophils 0.1 thou/uL (0.0-0.2); #Eosinphils 0.9 thou/uL (0.0-0.7); #Lymphocytes 1.7 thou/uL (1.20-3.40); #Monocytes 1.1 thou/uL (0.11-0.59); #Neutrophils 4.9 thou/uL (1.40-6.50); %Basophils 1.4 % (0.0-1.0); %Lymphocytes 19.2 % (21.0-51.0); %Monocytes 12.3 % (0.0-10.0); %Neutrophils 57.2 % (42.0-75.0); Hemoglobin 9.3 g/dL (12.0-16.0); Mean Corpuscular HGB CONC 32.3 g/dL (32.0-36.0); Mean Corpuscular Hemoglobin 33.5 pg (27.0-31.0); Mean Platelet Volume 7.7 fL (7.4-10.4); Platelet Count 176 thou/uL (130-400); RBC Distribution Width 15.7 % (11.5-14.5); Red Blood Cell (RBC) Count 2.78 mill/uL (4.20-5.40); White Blood Cell (WBC) Count 8.6 thou/uL (4.8-10.8)
[2020-07-18 05:22] LABS: Anion Gap 14 mmol/L (10-20); BUN (Urea Nitrogen) 23 mg/dL (9.8-20.1); Calc. Creatinine Clearance 54 mL/min (70-130); Calcium 9.1 mg/dL (7.8-10.44); Carbon Dioxide 31 mmol/L (23-31); Chloride 98 mmol/L (98-107); Glucose 88 mg/dL (83-110); Potassium 3.7 mmol/L (3.5-5.1); Sodium 139 mmol/L (136-145)
[2020-07-18] MEDS: traMADol HCl 50 MG TAB PO PRN ×2 (06:04→21:50)
[2020-07-18] MEDS: Levothyroxine Sodium 125 MCG TAB PO SCH (06:05)
[2020-07-18] MEDS: Apixaban 2.5 MG TAB PO SCH (08:44)
[2020-07-18] MEDS: Fluconazole 100 MG TAB PO SCH (08:44)
[2020-07-18] MEDS: Aspirin Chewable 81 MG TAB PO SCH (08:44)
[2020-07-18] MEDS: Pramipexole Di-HCl 1 MG TAB PO SCH ×3 (08:44→21:46)
[2020-07-18] MEDS: Acetaminophen 325 MG TAB PO PRN (08:47)
[2020-07-18] MEDS: Polyethylene Glycol 3350 17 GM Packet PO SCH (08:49)
[2020-07-18 09:31] VITALS: BMI 28.3
[2020-07-18 13:01] LABS: SARS-CoV-2 PCR by NAA Not Detected (NotDetected)
[2020-07-18] MEDS ORDERED: Apixaban 2.5 MG TAB PO SCH (21:00)
[2020-07-18 23:35] VITALS: BP 130/60; TEMP 97.8
== END 2020-07-18 22:35 | DRG 64 ==
LOC: ERS 00:15 → ERHOLD 04:05 → 2SE 16:52
PROVIDERS: ADMIT Specialist; ATTEND Specialist
DX: I63.511 Cerebral infarction due to unspecified occlusion or stenosis of right middle cerebral artery (principal); I50.33 Acute on chronic diastolic (congestive) heart failure; G81.94 Hemiplegia, unspecified affecting left nondominant side; J96.11 Chronic respiratory failure with hypoxia; I47.2 Ventricular tachycardia; Z23 Encounter for immunization; Z20.822 Contact with and (suspected) exposure to COVID-19; R29.709 NIHSS score 9; R40.2362 Coma scale, best motor response, obeys commands, at arrival to emergency department; R40.2142 Coma scale, eyes open, spontaneous, at arrival to emergency department; R40.2252 Coma scale, best verbal response, oriented, at arrival to emergency department; I11.0 Hypertensive heart disease with heart failure; J44.9 Chronic obstructive pulmonary disease, unspecified; K21.9 Gastro-esophageal reflux disease without esophagitis; E03.9 Hypothyroidism, unspecified; I25.10 Atherosclerotic heart disease of native coronary artery without angina pectoris; E78.5 Hyperlipidemia, unspecified; G25.81 Restless legs syndrome; M19.90 Unspecified osteoarthritis, unspecified site; H53.462 Homonymous bilateral field defects, left side; R29.810 Facial weakness; G93.89 Other specified disorders of brain; I48.0 Paroxysmal atrial fibrillation; E66.01 Morbid (severe) obesity due to excess calories; I27.20 Pulmonary hypertension, unspecified; Z88.1 Allergy status to other antibiotic agents; Z88.0 Allergy status to penicillin; Z88.5 Allergy status to narcotic agent; Z88.8 Allergy status to other drugs, medicaments and biological substances; Z90.49 Acquired absence of other specified parts of digestive tract; Z90.710 Acquired absence of both cervix and uterus; Z68.28 Body mass index [BMI] 28.0-28.9, adult
CPT/HCPCS: 36415; 70460; 70496; 70498; 70551; 80048; 80053; 80061; 81001; 82553; 83036; 84443; 84484; 85025; 85046; 85379; 85610; 85730; 87635; 90471; 90732; 93005; 93010; 93306; 95712; 95819; 95957; C9113; G0009; J1940; J2060; J3010; Q0162; Q9967; U0003; U0005

== ENCOUNTER 2020-08-14 20:19 | Inpatient (IN) | payer MEDICARE, MEDICAID ==
[~2020-08-14 20:19] MED LIST: Iopamidol-370 76% 500 ML 1 ML ONE
[2020-08-14 20:37] LABS: #Basophils 0.1 thou/uL (0.0-0.2); #Eosinphils 0.4 thou/uL (0.0-0.7); #Lymphocytes 1.4 thou/uL (1.20-3.40); #Monocytes 0.2 thou/uL (0.11-0.59); #Neutrophils 3.2 thou/uL (1.40-6.50); %Basophils 2.3 % (0.0-1.0); %Eosinophils 7.1 % (0.0-10.0); %Lymphocytes 26.9 % (21.0-51.0); %Monocytes 4.2 % (0.0-10.0); %Neutrophils 59.6 % (42.0-75.0); Hemoglobin 10.3 g/dL (12.0-16.0); Mean Corpuscular HGB CONC 32.4 g/dL (32.0-36.0); Mean Corpuscular Hemoglobin 33.1 pg (27.0-31.0); Mean Platelet Volume 7.9 fL (7.4-10.4); Platelet Count 148 thou/uL (130-400); Red Blood Cell (RBC) Count 3.12 mill/uL (4.20-5.40); White Blood Cell (WBC) Count 5.3 thou/uL (4.8-10.8)
[2020-08-14] MEDS ORDERED: Lorazepam 2 MG/ML VIAL ONE (20:38)
[2020-08-14 20:44] LABS: INR-International Normal Ratio 1.1; PTT 32.4 sec (22.9-36.1); Prothrombin Time 14.2 sec (12.0-14.7)
[2020-08-14 20:58] LABS: ALT (SGPT) 22 U/L (8-55); AST (SGOT) 41 U/L (5-34); Albumin 3.3 g/dL (3.4-4.8); Alkaline Phosphatase 66 U/L (40-110); Anion Gap 15 mmol/L (10-20); BUN (Urea Nitrogen) 28 mg/dL (9.8-20.1); Bilirubin, Total 0.3 mg/dL (0.2-1.2); CK (CPK) 41 U/L (29-168); Calc. Creatinine Clearance 0 mL/min (70-130); Calcium 9.5 mg/dL (7.8-10.44); Carbon Dioxide 26 mmol/L (23-31); Chloride 104 mmol/L (98-107); Glucose 120 mg/dL (83-110); Potassium 4.1 mmol/L (3.5-5.1); Protein, Total 7.3 g/dL (5.8-8.1); Sodium 141 mmol/L (136-145)
[2020-08-14 21:34] LABS: Bacteria/HPF None Seen HPF (None Seen); Bilirubin Negative (Negative); Blood, Urine 1+ (Negative); Clarity Clear (Clear); Glucose, Urine (Dipstick) Normal (Negative); Ketone, Urine Negative (Negative); Leukocyte Negative Leu/uL (Negative); Nitrite Negative (Negative); Protein, Urine (Dipstick) 10 mg/dL (Neg-Trace); Specific Gravity, Urine 1.024 (1.002-1.036); Squamous Epithelial 0-3 HPF (0-3); Urobilinogen Normal mg/dL (Less than 2)
[2020-08-14] MEDS ORDERED: Aspirin 300 MG Suppository ONE (21:55)
[2020-08-14] MEDS ORDERED: Ondansetron ODT 4 MG TAB SL PRN (23:15)
[2020-08-14] MEDS ORDERED: Ondansetron PF 4 MG/2 ML Vial IVP PRN (23:15)
[2020-08-15 01:07] VITALS: BMI 29.7
[2020-08-15 05:22] LABS: SARS-CoV-2 PCR by NAA Not Detected (NotDetected)
[2020-08-15] MEDS: Sodium Chloride 0.45% 1,000 ML IV SCH ×2 (08:38→21:06)
[2020-08-15] MEDS ORDERED: Aspirin 300 MG Suppository PR SCH (11:15)
[2020-08-15] MEDS: Lorazepam 2 MG/ML VIAL SLOW IVP PRN ×2 (12:14→14:03)
[2020-08-15] MEDS ORDERED: Lorazepam 2 MG/ML VIAL SLOW IVP PRN (13:22)
[2020-08-15] MEDS: Acetaminophen 650 MG Suppository PR SCH ×3 (15:04→21:05)
[2020-08-16] MEDS ORDERED: Nitroglycerin 0.4 MG TAB (25 Tab Bottle) SL PRN (03:24)
[2020-08-16] MEDS ORDERED: Furosemide 20 MG/2 ML VIAL SLOW IVP SCH (03:30)
[2020-08-16] MEDS: Acetaminophen 650 MG Suppository PR SCH ×3 (06:12→12:10)
[2020-08-16 07:37] LABS: Anion Gap 12 mmol/L (10-20); BUN (Urea Nitrogen) 18 mg/dL (9.8-20.1); Calc. Creatinine Clearance 79 mL/min (70-130); Calcium 9.1 mg/dL (7.8-10.44); Carbon Dioxide 26 mmol/L (23-31); Chloride 103 mmol/L (98-107); Glucose 74 mg/dL (83-110); Potassium 3.9 mmol/L (3.5-5.1); Sodium 137 mmol/L (136-145)
[2020-08-16] MEDS ORDERED: Aspirin 300 MG Suppository PR SCH (09:00)
[2020-08-16] MEDS: Lorazepam 2 MG/ML VIAL SLOW IVP SCH ×3 (09:13→22:15)
[2020-08-16] MEDS: Sodium Chloride 0.45% 1,000 ML IV SCH ×2 (10:21→18:50)
[2020-08-16] MEDS ORDERED: Acetaminophen 325 MG TAB PO SCH (11:14)
[2020-08-16 11:36] LABS: Band 2 % (5-11); Eosinophils 16 % (0-10); Hemoglobin 9.2 g/dL (12.0-16.0); Lymphocytes 39 % (21-51); MDiff Complete? YES; Mean Corpuscular Hemoglobin 33.6 pg (27.0-31.0); Mean Platelet Volume 5.7 fL (7.4-10.4); Monocytes 3 % (0-10); Neutrophil 38 % (42-75); Platelet Count 120 thou/uL (130-400); Platelet Morphology Comment Appears Decreased; Polychromasia SLIGHT = 2-3 cells (100X) (0-2/hpf); RBC Distribution Width 15.7 % (11.5-14.5); Red Blood Cell (RBC) Count 2.75 mill/uL (4.20-5.40); White Blood Cell (WBC) Count 3.8 thou/uL (4.8-10.8)
[2020-08-16] MEDS ORDERED: Aspirin 325 MG TAB PO SCH (12:30)
[2020-08-16] MEDS ORDERED: Apixaban 5 MG TAB PO SCH (13:15)
[2020-08-16] MEDS ORDERED: levETIRAcetam 500 MG TAB PO SCH (16:15)
[2020-08-16] MEDS: Acetaminophen 325 MG TAB PO SCH ×3 (16:45→21:49)
[2020-08-16 16:49] LABS: #Basophils 0.1 thou/uL (0.0-0.2); #Eosinphils 0.4 thou/uL (0.0-0.7); #Lymphocytes 1.3 thou/uL (1.20-3.40); #Monocytes 0.3 thou/uL (0.11-0.59); #Neutrophils 2.1 thou/uL (1.40-6.50); %Basophils 2.1 % (0.0-1.0); %Eosinophils 10.3 % (0.0-10.0); %Lymphocytes 31.3 % (21.0-51.0); %Monocytes 7.1 % (0.0-10.0); %Neutrophils 49.3 % (42.0-75.0); Hemoglobin 9.4 g/dL (12.0-16.0); Mean Corpuscular HGB CONC 32.2 g/dL (32.0-36.0); Mean Corpuscular Hemoglobin 32.6 pg (27.0-31.0); Mean Platelet Volume 7.8 fL (7.4-10.4); Platelet Count 150 thou/uL (130-400); RBC Distribution Width 15.7 % (11.5-14.5); White Blood Cell (WBC) Count 4.2 thou/uL (4.8-10.8)
[2020-08-16 17:14] LABS: ALT (SGPT) 19 U/L (8-55); AST (SGOT) 33 U/L (5-34); Alkaline Phosphatase 64 U/L (40-110); Anion Gap 13 mmol/L (10-20); BUN (Urea Nitrogen) 20 mg/dL (9.8-20.1); Bilirubin, Total 0.3 mg/dL (0.2-1.2); CK (CPK) 55 U/L (29-168); Calc. Creatinine Clearance 73 mL/min (70-130); Calcium 8.8 mg/dL (7.8-10.44); Carbon Dioxide 26 mmol/L (23-31); Chloride 103 mmol/L (98-107); Globulin 3.5 g/dL (2.4-3.5); Glucose 87 mg/dL (83-110); Potassium 3.7 mmol/L (3.5-5.1); Protein, Total 6.5 g/dL (5.8-8.1); Sodium 138 mmol/L (136-145)
[2020-08-16] MEDS: Apixaban 5 MG TAB PO SCH (20:24)
[2020-08-16] MEDS: levETIRAcetam 500 MG TAB PO SCH (20:24)
[2020-08-16] MEDS ORDERED: Pramipexole Di-HCl 1 MG TAB PO SCH (21:00)
[2020-08-16] MEDS ORDERED: DULoxetine 60 MG CAP PO SCH (21:00)
[2020-08-17] MEDS: Lorazepam 2 MG/ML VIAL SLOW IVP SCH ×2 (01:14→05:38)
[2020-08-17] MEDS: Sodium Chloride 0.45% 1,000 ML IV SCH ×3 (04:49→17:12)
[2020-08-17 05:21] LABS: #Basophils 0.1 thou/uL (0.0-0.2); #Eosinphils 0.6 thou/uL (0.0-0.7); #Lymphocytes 1.6 thou/uL (1.20-3.40); #Monocytes 0.3 thou/uL (0.11-0.59); #Neutrophils 1.9 thou/uL (1.40-6.50); %Basophils 2.1 % (0.0-1.0); %Eosinophils 12.9 % (0.0-10.0); %Lymphocytes 35.5 % (21.0-51.0); %Monocytes 6.2 % (0.0-10.0); %Neutrophils 43.3 % (42.0-75.0); Hemoglobin 8.3 g/dL (12.0-16.0); Mean Corpuscular HGB CONC 32.3 g/dL (32.0-36.0); Mean Corpuscular Hemoglobin 32.7 pg (27.0-31.0); Mean Platelet Volume 7.9 fL (7.4-10.4); Platelet Count 134 thou/uL (130-400); RBC Distribution Width 15.8 % (11.5-14.5); Red Blood Cell (RBC) Count 2.53 mill/uL (4.20-5.40); White Blood Cell (WBC) Count 4.5 thou/uL (4.8-10.8)
[2020-08-17] MEDS: Levothyroxine Sodium 125 MCG TAB PO SCH (05:33)
[2020-08-17] MEDS: Acetaminophen 325 MG TAB PO SCH ×5 (05:33→21:43)
[2020-08-17 05:52] LABS: Anion Gap 11 mmol/L (10-20); BUN (Urea Nitrogen) 18 mg/dL (9.8-20.1); Calc. Creatinine Clearance 75 mL/min (70-130); Calcium 8.4 mg/dL (7.8-10.44); Carbon Dioxide 27 mmol/L (23-31); Chloride 104 mmol/L (98-107); Glucose 81 mg/dL (83-110); Potassium 3.7 mmol/L (3.5-5.1); Sodium 138 mmol/L (136-145)
[2020-08-17] MEDS: Apixaban 5 MG TAB PO SCH (08:08)
[2020-08-17] MEDS: Pramipexole Di-HCl 1 MG TAB PO SCH ×3 (08:49→20:11)
[2020-08-17] MEDS: levETIRAcetam 500 MG TAB PO SCH ×2 (08:50→20:11)
[2020-08-17] MEDS: Pantoprazole 40 MG VIAL IVP SCH (08:56)
[2020-08-17] MEDS ORDERED: Aspirin 325 MG TAB PO SCH (09:00)
[2020-08-17 09:11] LABS: Iron 48 ug/dL (50-170); Iron Binding Capacity, Total 216 mcg/dL (265-497)
[2020-08-17 09:18] LABS: Ferritin 374.42 ng/mL (10-291); Thyroid Stimulating Hormone 1.3787 uIU/mL (0.35-4.94)
[2020-08-17] MEDS ORDERED: DULoxetine 60 MG CAP PO SCH (10:45)
[2020-08-17] MEDS: Lorazepam 0.5 MG TAB PO PRN ×2 (12:33→21:43)
[2020-08-18 05:16] LABS: Anion Gap 11 mmol/L (10-20); BUN (Urea Nitrogen) 14 mg/dL (9.8-20.1); Calc. Creatinine Clearance 84 mL/min (70-130); Calcium 8.8 mg/dL (7.8-10.44); Carbon Dioxide 25 mmol/L (23-31); Chloride 104 mmol/L (98-107); Glucose 81 mg/dL (83-110); Potassium 3.8 mmol/L (3.5-5.1); Sodium 136 mmol/L (136-145)
[2020-08-18 05:28] LABS: Hemoglobin 9.3 g/dL (12.0-16.0); Mean Corpuscular HGB CONC 32.9 g/dL (32.0-36.0); Mean Corpuscular Hemoglobin 33.4 pg (27.0-31.0); Mean Platelet Volume 7.7 fL (7.4-10.4); Platelet Count 142 thou/uL (130-400); RBC Distribution Width 15.9 % (11.5-14.5); Red Blood Cell (RBC) Count 2.77 mill/uL (4.20-5.40); White Blood Cell (WBC) Count 3.6 thou/uL (4.8-10.8)
[2020-08-18 05:29] LABS: Eosinophils 11 % (0-10); Lymphocytes 39 % (21-51); MDiff Complete? YES; Monocytes 2 % (0-10); Neutrophil 46 % (42-75); Platelet Morphology Comment Appears Adequate
[2020-08-18] MEDS: Levothyroxine Sodium 125 MCG TAB PO SCH (05:46)
[2020-08-18] MEDS: Acetaminophen 325 MG TAB PO SCH ×5 (05:46→21:44)
[2020-08-18] MEDS: Sodium Chloride 0.45% 1,000 ML IV SCH ×2 (05:46→17:47)
[2020-08-18] MEDS: Pantoprazole 40 MG VIAL IVP SCH (09:28)
[2020-08-18] MEDS: levETIRAcetam 500 MG TAB PO SCH ×2 (09:28→21:44)
[2020-08-18] MEDS: Pramipexole Di-HCl 1 MG TAB PO SCH ×3 (09:28→21:47)
[2020-08-18] MEDS ORDERED: Ondansetron PF 4 MG/2 ML Vial IVP PRN (11:49)
[2020-08-18] MEDS: Lorazepam 0.5 MG TAB PO PRN (15:00)
[2020-08-18] MEDS ORDERED: Polyethylene Glycol 3350 17 GM Packet PO PRN (16:10)
[2020-08-18] MEDS: DULoxetine 60 MG CAP PO SCH (21:46)
[2020-08-19] MEDS ORDERED: traMADol HCl 50 MG TAB PO PRN (01:58)
[2020-08-19] MEDS: Lorazepam 0.5 MG TAB PO PRN (03:55)
[2020-08-19 05:41] LABS: #Basophils 0.1 thou/uL (0.0-0.2); #Eosinphils 0.7 thou/uL (0.0-0.7); #Lymphocytes 1.7 thou/uL (1.20-3.40); #Monocytes 0.5 thou/uL (0.11-0.59); #Neutrophils 2.1 thou/uL (1.40-6.50); %Basophils 1.5 % (0.0-1.0); %Eosinophils 14.4 % (0.0-10.0); %Monocytes 9.9 % (0.0-10.0); %Neutrophils 41.3 % (42.0-75.0); Hemoglobin 9.1 g/dL (12.0-16.0); Mean Corpuscular HGB CONC 31.1 g/dL (32.0-36.0); Mean Platelet Volume 7.8 fL (7.4-10.4); Platelet Count 126 thou/uL (130-400); RBC Distribution Width 16.3 % (11.5-14.5); Red Blood Cell (RBC) Count 2.86 mill/uL (4.20-5.40)
[2020-08-19 06:00] LABS: Anion Gap 10 mmol/L (10-20); BUN (Urea Nitrogen) 12 mg/dL (9.8-20.1); Calc. Creatinine Clearance 73 mL/min (70-130); Calcium 8.9 mg/dL (7.8-10.44); Carbon Dioxide 26 mmol/L (23-31); Chloride 105 mmol/L (98-107); Glucose 84 mg/dL (83-110); Potassium 3.9 mmol/L (3.5-5.1); Sodium 137 mmol/L (136-145)
[2020-08-19] MEDS: Acetaminophen 325 MG TAB PO SCH ×5 (06:25→20:57)
[2020-08-19] MEDS: Levothyroxine Sodium 125 MCG TAB PO SCH (06:25)
[2020-08-19] MEDS: Sodium Chloride 0.45% 1,000 ML IV SCH ×3 (07:50→14:53)
[2020-08-19] MEDS ORDERED: PROPOFOL 200 MG/20 ML VIAL ONE (09:18)
[2020-08-19] MEDS ORDERED: Fentanyl 100 MCG/2 ML VIAL ONE (09:42)
[2020-08-19] MEDS ORDERED: Apixaban 5 MG TAB PO SCH (10:30)
[2020-08-19] MEDS: levETIRAcetam 500 MG TAB PO SCH ×2 (10:41→20:58)
[2020-08-19] MEDS: Polyethylene Glycol 3350 17 GM Packet PO SCH (10:42)
[2020-08-19] MEDS: Pramipexole Di-HCl 1 MG TAB PO SCH ×3 (10:42→20:58)
[2020-08-19] MEDS: Pantoprazole 40 MG VIAL IVP SCH (10:43)
[2020-08-19] MEDS ORDERED: Hyoscyamine Sulfate SL 0.125 mg Tablet SL SCH (20:15)
[2020-08-19] MEDS: DULoxetine 60 MG CAP PO SCH (20:58)
[2020-08-19] MEDS: Apixaban 5 MG TAB PO SCH (20:58)
[2020-08-19] MEDS ORDERED: Hyoscyamine Sulfate SL 0.125 mg Tablet SL PRN (23:59)
[2020-08-20] MEDS: traMADol HCl 50 MG TAB PO PRN ×2 (02:00→08:40)
[2020-08-20] MEDS: Lorazepam 0.5 MG TAB PO PRN ×2 (05:30→21:47)
[2020-08-20] MEDS: Acetaminophen 325 MG TAB PO SCH ×5 (08:36→21:47)
[2020-08-20] MEDS: Levothyroxine Sodium 125 MCG TAB PO SCH (08:36)
[2020-08-20] MEDS: Apixaban 5 MG TAB PO SCH ×2 (08:37→21:48)
[2020-08-20] MEDS: levETIRAcetam 500 MG TAB PO SCH ×2 (08:37→21:47)
[2020-08-20] MEDS: Polyethylene Glycol 3350 17 GM Packet PO SCH (08:37)
[2020-08-20] MEDS: Sodium Chloride 0.45% 1,000 ML IV SCH ×2 (08:38→08:49)
[2020-08-20] MEDS: Pramipexole Di-HCl 1 MG TAB PO SCH ×3 (08:48→21:47)
[2020-08-20 13:38] LABS: Hemoglobin 11.1 g/dL (12.0-16.0); Mean Corpuscular HGB CONC 32.9 g/dL (32.0-36.0); Mean Corpuscular Hemoglobin 34.1 pg (27.0-31.0); Mean Platelet Volume 8.2 fL (7.4-10.4); Platelet Count 139 thou/uL (130-400); RBC Distribution Width 16.6 % (11.5-14.5); Red Blood Cell (RBC) Count 3.27 mill/uL (4.20-5.40); White Blood Cell (WBC) Count 5.8 thou/uL (4.8-10.8)
[2020-08-20 14:13] LABS: Anion Gap 15 mmol/L (10-20); BUN (Urea Nitrogen) 11 mg/dL (9.8-20.1); Calc. Creatinine Clearance 77 mL/min (70-130); Calcium 9.1 mg/dL (7.8-10.44); Carbon Dioxide 22 mmol/L (23-31); Chloride 106 mmol/L (98-107); Glucose 104 mg/dL (83-110); Potassium 4.7 mmol/L (3.5-5.1); Sodium 138 mmol/L (136-145)
[2020-08-20 14:15] LABS: Anisocytosis SLIGHT = 6-15 cells (100X) (0-5/hpf); Band 1 % (5-11); Eosinophils 7 % (0-10); Lymphocytes 34 % (21-51); MDiff Complete? YES; Macrocytosis SLIGHT = 6-15 cells (100X) (0-5/hpf); Monocytes 14 % (0-10); Neutrophil 40 % (42-75); Platelet Morphology Comment Appears Adequate; Polychromasia SLIGHT = 2-3 cells (100X) (0-2/hpf); Reactive Lymphocytes 1 % (0-10)
[2020-08-20] MEDS: DULoxetine 60 MG CAP PO SCH (21:47)
[2020-08-21] MEDS: traMADol HCl 50 MG TAB PO PRN ×2 (02:21→12:58)
[2020-08-21] MEDS: Sodium Chloride 0.45% 1,000 ML IV SCH ×2 (04:02→22:13)
[2020-08-21] MEDS: Levothyroxine Sodium 125 MCG TAB PO SCH (05:10)
[2020-08-21] MEDS: Lorazepam 0.5 MG TAB PO PRN ×2 (05:10→18:33)
[2020-08-21] MEDS: Acetaminophen 325 MG TAB PO SCH ×5 (05:36→21:51)
[2020-08-21] MEDS ORDERED: PROPOFOL 20 ML ONE (11:02)
[2020-08-21] MEDS ORDERED: PROPOFOL 200 MG/20 ML VIAL ONE (11:14)
[2020-08-21] MEDS: Pramipexole Di-HCl 1 MG TAB PO SCH ×3 (12:57→21:53)
[2020-08-21] MEDS: Polyethylene Glycol 3350 17 GM Packet PO SCH (12:57)
[2020-08-21] MEDS: levETIRAcetam 500 MG TAB PO SCH ×2 (12:57→21:51)
[2020-08-21] MEDS: Apixaban 5 MG TAB PO SCH ×2 (12:57→21:53)
[2020-08-21] MEDS: DULoxetine 60 MG CAP PO SCH (21:53)
[2020-08-22] MEDS: Acetaminophen 325 MG TAB PO SCH ×5 (06:37→21:22)
[2020-08-22] MEDS: Levothyroxine Sodium 125 MCG TAB PO SCH (06:37)
[2020-08-22] MEDS: Polyethylene Glycol 3350 17 GM Packet PO SCH (07:59)
[2020-08-22] MEDS: Apixaban 5 MG TAB PO SCH ×2 (08:00→21:22)
[2020-08-22] MEDS: Pramipexole Di-HCl 1 MG TAB PO SCH ×3 (08:00→21:22)
[2020-08-22] MEDS: levETIRAcetam 500 MG TAB PO SCH ×2 (08:00→21:22)
[2020-08-22] MEDS: traMADol HCl 50 MG TAB PO PRN (13:18)
[2020-08-22] MEDS ORDERED: Cepastat Lozenges 1 LOZ PO PRN (17:26)
[2020-08-22] MEDS ORDERED: EVOLOCUMAB 140 MG/ML SC SCH (17:30)
[2020-08-22] MEDS ORDERED: Aspirin 81 mg Enteric Coated Tablet PO SCH ×2 (18:00)
[2020-08-22] MEDS: Sodium Chloride 0.45% 1,000 ML IV SCH (18:14)
[2020-08-22] MEDS: DULoxetine 60 MG CAP PO SCH (21:22)
[2020-08-22] MEDS: Lorazepam 0.5 MG TAB PO PRN (22:01)
[2020-08-23] MEDS: traMADol HCl 50 MG TAB PO PRN ×2 (04:05→13:28)
[2020-08-23] MEDS: Acetaminophen 325 MG TAB PO SCH ×4 (05:37→19:41)
[2020-08-23] MEDS: Levothyroxine Sodium 125 MCG TAB PO SCH (05:38)
[2020-08-23] MEDS ORDERED: Aspirin 81 mg Enteric Coated Tablet PO SCH (09:00)
[2020-08-23] MEDS: Pramipexole Di-HCl 1 MG TAB PO SCH ×2 (09:05→14:19)
[2020-08-23] MEDS: Polyethylene Glycol 3350 17 GM Packet PO SCH (09:05)
[2020-08-23] MEDS: Apixaban 5 MG TAB PO SCH (09:05)
[2020-08-23] MEDS: levETIRAcetam 500 MG TAB PO SCH (09:05)
[2020-08-23] MEDS: Sodium Chloride 0.45% 1,000 ML IV SCH (14:19)
[2020-08-23 15:26] VITALS: BP 122/58; TEMP 97.6
== END 2020-08-23 18:10 | disposition swing bed (61) | DRG 69 ==
LOC: ERS 20:19 → 2SE 21:40
PROVIDERS: ADMIT Specialist; ATTEND Specialist
PROC: 0DJ08ZZ Inspection of Upper Intestinal Tract, Via Natural or Artificial Opening Endoscopic (ICD-10-PCS; principal; 2020-08-19)
PROC: B24BZZ4 Ultrasonography of Heart with Aorta, Transesophageal (ICD-10-PCS; 2020-08-21)
DX: G45.9 Transient cerebral ischemic attack, unspecified (principal); R47.01 Aphasia; I50.32 Chronic diastolic (congestive) heart failure; K22.10 Ulcer of esophagus without bleeding; I48.91 Unspecified atrial fibrillation; J44.9 Chronic obstructive pulmonary disease, unspecified; M19.90 Unspecified osteoarthritis, unspecified site; F32.9 Major depressive disorder, single episode, unspecified; E03.9 Hypothyroidism, unspecified; E78.5 Hyperlipidemia, unspecified; K44.9 Diaphragmatic hernia without obstruction or gangrene; I25.10 Atherosclerotic heart disease of native coronary artery without angina pectoris; I11.0 Hypertensive heart disease with heart failure; G25.81 Restless legs syndrome; K21.00 Gastro-esophageal reflux disease with esophagitis, without bleeding; R10.13 Epigastric pain; Z20.822 Contact with and (suspected) exposure to COVID-19; K21.9 Gastro-esophageal reflux disease without esophagitis; M10.9 Gout, unspecified; D63.8 Anemia in other chronic diseases classified elsewhere; Z79.01 Long term (current) use of anticoagulants; Z90.49 Acquired absence of other specified parts of digestive tract; Z88.1 Allergy status to other antibiotic agents; Z88.0 Allergy status to penicillin; Z88.6 Allergy status to analgesic agent; Z88.8 Allergy status to other drugs, medicaments and biological substances; Z79.02 Long term (current) use of antithrombotics/antiplatelets; Z79.899 Other long term (current) drug therapy; Z86.73 Personal history of transient ischemic attack (TIA), and cerebral infarction without residual deficits; Z90.710 Acquired absence of both cervix and uterus; Z90.89 Acquired absence of other organs
CPT/HCPCS: 36415; 36416; 51701; 70450; 70496; 70498; 70551; 80048; 80053; 81003; 81015; 82274; 82533; 82550; 82728; 83540; 83550; 84443; 84484; 85025; 85610; 85730; 87635; 93005; 93312; 95712; 95819; 95957; 96374; C9113; J1940; J2060; J2405; J2704; J3010; Q9967; U0003; U0005

== ENCOUNTER 2021-01-08 14:04 | Inpatient (IN) | payer MEDICARE, MEDICAID ==
[2021-01-08 15:21] LABS: #Basophils 0.1 thou/uL (0.0-0.2); #Eosinphils 0.4 thou/uL (0.0-0.7); #Lymphocytes 1.7 thou/uL (1.20-3.40); #Monocytes 0.5 thou/uL (0.11-0.59); #Neutrophils 3.1 thou/uL (1.40-6.50); %Basophils 1.8 % (0.0-1.0); %Eosinophils 6.5 % (0.0-10.0); %Lymphocytes 29.5 % (21.0-51.0); %Neutrophils 53.2 % (42.0-75.0); Hemoglobin 11.9 g/dL (12.0-16.0); Mean Corpuscular HGB CONC 34.9 g/dL (32.0-36.0); Mean Corpuscular Hemoglobin 35.2 pg (27.0-31.0); Mean Platelet Volume 7.1 fL (7.4-10.4); Platelet Count 153 thou/uL (130-400); RBC Distribution Width 12.1 % (11.5-14.5); Red Blood Cell (RBC) Count 3.37 mill/uL (4.20-5.40); White Blood Cell (WBC) Count 5.8 thou/uL (4.8-10.8)
[2021-01-08 15:43] LABS: ALT (SGPT) 12 U/L (8-55); AST (SGOT) 17 U/L (5-34); Albumin 3.5 g/dL (3.4-4.8); Alkaline Phosphatase 57 U/L (40-110); Anion Gap 11 mmol/L (10-20); BUN (Urea Nitrogen) 32 mg/dL (9.8-20.1); Bilirubin, Total 0.3 mg/dL (0.2-1.2); Calc. Creatinine Clearance 0 mL/min (70-130); Calcium 9.7 mg/dL (7.8-10.44); Carbon Dioxide 33 mmol/L (23-31); Chloride 104 mmol/L (98-107); Globulin 3.3 g/dL (2.4-3.5); Glucose 103 mg/dL (83-110); Potassium 4.8 mmol/L (3.5-5.1); Protein, Total 6.8 g/dL (5.8-8.1); Sodium 143 mmol/L (136-145)
[2021-01-08 15:46] LABS: Prothrombin Time 15.2 sec (12.0-14.7)
[2021-01-08 15:47] LABS: PTT 31.9 sec (22.9-36.1)
[2021-01-08 15:53] LABS: Bilirubin Negative (Negative); Blood, Urine 1+ (Negative); Clarity Clear (Clear); Glucose, Urine (Dipstick) Normal (Negative); Ketone, Urine Negative (Negative); Leukocyte 25 Leu/uL (Negative); Nitrite Negative (Negative); Protein, Urine (Dipstick) 20 mg/dL (Neg-Trace); Specific Gravity, Urine 1.021 (1.002-1.036); Squamous Epithelial 0-3 HPF (0-3); Urobilinogen Normal mg/dL (Less than 2)
[2021-01-08 15:53] LABS: INR-International Normal Ratio 1.2
[2021-01-08 15:55] LABS: Bacteria/HPF Rare-Few HPF (None Seen)
[2021-01-09 00:05] VITALS: BMI 41.8
[2021-01-09] MEDS ORDERED: Pramipexole Di-HCl 1 MG TAB PO SCH (02:00)
[2021-01-09] MEDS ORDERED: Apixaban 5 MG TAB PO SCH (02:00)
[2021-01-09] MEDS ORDERED: DULoxetine 60 MG CAP PO SCH (02:00)
[2021-01-09] MEDS ORDERED: levETIRAcetam 500 MG TAB PO SCH (02:00)
[2021-01-09] MEDS: Lorazepam 0.5 MG TAB PO PRN ×2 (03:06→21:17)
[2021-01-09] MEDS: Levothyroxine Sodium 125 MCG TAB PO SCH (03:06)
[2021-01-09] MEDS: Acetaminophen 325 MG TAB PO SCH ×5 (03:06→21:16)
[2021-01-09] MEDS ORDERED: Lorazepam 2 MG/ML VIAL SLOW IVP SCH (08:00)
[2021-01-09] MEDS: Budesonide 0.5 MG/2 ML NEB NEB SCH ×2 (08:45→19:41)
[2021-01-09] MEDS ORDERED: Ondansetron ODT 4 MG TAB PO PRN (08:54)
[2021-01-09] MEDS ORDERED: REPATHA SC SCH (09:00)
[2021-01-09] MEDS: Aspirin Chewable 81 MG TAB PO SCH (10:38)
[2021-01-09] MEDS: Diclofenac 1% 100 GM GEL TP SCH ×3 (10:38→21:19)
[2021-01-09] MEDS: Polyethylene Glycol 3350 17 GM Packet PO SCH (10:38)
[2021-01-09] MEDS: Apixaban 5 MG TAB PO SCH ×2 (10:38→21:17)
[2021-01-09] MEDS: levETIRAcetam 500 MG TAB PO SCH ×2 (10:38→21:16)
[2021-01-09] MEDS: Pramipexole Di-HCl 1 MG TAB PO SCH ×3 (10:38→21:18)
[2021-01-09] MEDS: Furosemide 20 MG TAB PO SCH (10:38)
[2021-01-09 13:19] LABS: SARS-CoV-2 PCR by NAA Not Detected (NotDetected)
[2021-01-09] MEDS: traMADol HCl 50 MG TAB PO PRN (17:04)
[2021-01-09] MEDS: DULoxetine 60 MG CAP PO SCH (21:18)
[2021-01-10] MEDS: traMADol HCl 50 MG TAB PO PRN ×2 (04:05→19:26)
[2021-01-10] MEDS: Acetaminophen 325 MG TAB PO SCH ×5 (05:47→21:01)
[2021-01-10] MEDS: Levothyroxine Sodium 125 MCG TAB PO SCH (05:48)
[2021-01-10 06:20] LABS: #Basophils 0.1 thou/uL (0.0-0.2); #Eosinphils 0.4 thou/uL (0.0-0.7); #Lymphocytes 2.5 thou/uL (1.20-3.40); #Monocytes 0.5 thou/uL (0.11-0.59); #Neutrophils 2.6 thou/uL (1.40-6.50); %Basophils 1.4 % (0.0-1.0); %Eosinophils 6.2 % (0.0-10.0); %Lymphocytes 41.5 % (21.0-51.0); %Monocytes 8.6 % (0.0-10.0); %Neutrophils 42.4 % (42.0-75.0); Hemoglobin 10.8 g/dL (12.0-16.0); Mean Corpuscular HGB CONC 32.1 g/dL (32.0-36.0); Mean Corpuscular Hemoglobin 32.1 pg (27.0-31.0); Mean Corpuscular Volume 99.9 fL (78.0-98.0); Mean Platelet Volume 7.5 fL (7.4-10.4); Platelet Count 149 thou/uL (130-400); RBC Distribution Width 12.2 % (11.5-14.5); Red Blood Cell (RBC) Count 3.35 mill/uL (4.20-5.40)
[2021-01-10 06:39] LABS: Anion Gap 11 mmol/L (10-20); BUN (Urea Nitrogen) 29 mg/dL (9.8-20.1); Calc. Creatinine Clearance 72 mL/min (70-130); Calcium 9.4 mg/dL (7.8-10.44); Carbon Dioxide 31 mmol/L (23-31); Chloride 99 mmol/L (98-107); Glucose 86 mg/dL (83-110); Potassium 4.2 mmol/L (3.5-5.1); Sodium 137 mmol/L (136-145)
[2021-01-10] MEDS ORDERED: Fioricet 325/50/40 mg Tablet PO PRN (07:42)
[2021-01-10] MEDS: Furosemide 20 MG TAB PO SCH (08:42)
[2021-01-10] MEDS: Pramipexole Di-HCl 1 MG TAB PO SCH ×3 (08:42→21:01)
[2021-01-10] MEDS: Aspirin Chewable 81 MG TAB PO SCH (08:42)
[2021-01-10] MEDS: Polyethylene Glycol 3350 17 GM Packet PO SCH (08:42)
[2021-01-10] MEDS: levETIRAcetam 500 MG TAB PO SCH ×2 (08:43→21:02)
[2021-01-10] MEDS: Diclofenac 1% 100 GM GEL TP SCH ×3 (08:43→21:02)
[2021-01-10] MEDS: Apixaban 5 MG TAB PO SCH ×2 (08:43→21:02)
[2021-01-10] MEDS: Budesonide 0.5 MG/2 ML NEB NEB SCH ×2 (11:17→19:23)
[2021-01-10] MEDS: DULoxetine 60 MG CAP PO SCH (21:02)
[2021-01-11] MEDS: Lorazepam 0.5 MG TAB PO PRN (00:10)
[2021-01-11] MEDS: traMADol HCl 50 MG TAB PO PRN ×2 (03:45→23:39)
[2021-01-11 05:56] LABS: #Basophils 0.1 thou/uL (0.0-0.2); #Eosinphils 0.4 thou/uL (0.0-0.7); #Monocytes 0.6 thou/uL (0.11-0.59); #Neutrophils 2.1 thou/uL (1.40-6.50); %Basophils 2.3 % (0.0-1.0); %Eosinophils 8.4 % (0.0-10.0); %Lymphocytes 37.7 % (21.0-51.0); %Monocytes 10.7 % (0.0-10.0); %Neutrophils 40.9 % (42.0-75.0); Hemoglobin 12.2 g/dL (12.0-16.0); Mean Corpuscular HGB CONC 32.3 g/dL (32.0-36.0); Mean Corpuscular Hemoglobin 32.4 pg (27.0-31.0); Mean Platelet Volume 7.5 fL (7.4-10.4); Platelet Count 149 thou/uL (130-400); RBC Distribution Width 12.3 % (11.5-14.5); Red Blood Cell (RBC) Count 3.76 mill/uL (4.20-5.40); White Blood Cell (WBC) Count 5.2 thou/uL (4.8-10.8)
[2021-01-11 06:16] LABS: Anion Gap 13 mmol/L (10-20); BUN (Urea Nitrogen) 32 mg/dL (9.8-20.1); Calc. Creatinine Clearance 66 mL/min (70-130); Calcium 9.7 mg/dL (7.8-10.44); Carbon Dioxide 30 mmol/L (23-31); Chloride 98 mmol/L (98-107); Glucose 90 mg/dL (83-110); Potassium 4.1 mmol/L (3.5-5.1); Sodium 137 mmol/L (136-145)
[2021-01-11] MEDS: Acetaminophen 325 MG TAB PO SCH ×5 (06:24→21:18)
[2021-01-11] MEDS: Levothyroxine Sodium 125 MCG TAB PO SCH (06:25)
[2021-01-11] MEDS: Budesonide 0.5 MG/2 ML NEB NEB SCH ×2 (08:53→19:48)
[2021-01-11] MEDS: Sulfameth/Trimethoprim DS 800-160mg TAB PO SCH ×2 (09:44→21:18)
[2021-01-11] MEDS: Apixaban 5 MG TAB PO SCH ×2 (09:44→21:17)
[2021-01-11] MEDS: Aspirin Chewable 81 MG TAB PO SCH (09:44)
[2021-01-11] MEDS: Pramipexole Di-HCl 1 MG TAB PO SCH ×3 (09:44→21:16)
[2021-01-11] MEDS: Furosemide 20 MG TAB PO SCH (09:45)
[2021-01-11] MEDS: levETIRAcetam 500 MG TAB PO SCH ×2 (09:45→21:18)
[2021-01-11] MEDS: Polyethylene Glycol 3350 17 GM Packet PO SCH (09:46)
[2021-01-11] MEDS: Diclofenac 1% 100 GM GEL TP SCH ×3 (09:46→21:22)
[2021-01-11] MEDS ORDERED: COVID-19 VACC,AD26(JANSSEN)/PF 0.5 ML SYRINGE IM ONE ×2 (15:00)
[2021-01-11] MEDS: DULoxetine 60 MG CAP PO SCH (21:17)
[2021-01-12] MEDS: Acetaminophen 325 MG TAB PO SCH ×5 (05:07→21:20)
[2021-01-12] MEDS: Budesonide 0.5 MG/2 ML NEB NEB SCH ×2 (07:00→20:00)
[2021-01-12] MEDS: Polyethylene Glycol 3350 17 GM Packet PO SCH (09:55)
[2021-01-12] MEDS: traMADol HCl 50 MG TAB PO PRN (09:56)
[2021-01-12] MEDS: Furosemide 20 MG TAB PO SCH (09:56)
[2021-01-12] MEDS: Apixaban 5 MG TAB PO SCH ×2 (09:57→21:21)
[2021-01-12] MEDS: levETIRAcetam 500 MG TAB PO SCH ×2 (09:57→21:21)
[2021-01-12] MEDS: Aspirin Chewable 81 MG TAB PO SCH (09:57)
[2021-01-12] MEDS: Sulfameth/Trimethoprim DS 800-160mg TAB PO SCH ×2 (09:57→21:21)
[2021-01-12] MEDS: Pramipexole Di-HCl 1 MG TAB PO SCH ×3 (09:57→21:21)
[2021-01-12] MEDS: Levothyroxine Sodium 125 MCG TAB PO SCH (09:57)
[2021-01-12] MEDS: Diclofenac 1% 100 GM GEL TP SCH ×3 (09:58→21:21)
[2021-01-12] MEDS ORDERED: COVID-19 VACC,AD26(JANSSEN)/PF 0.5 ML SYRINGE IM ONE (12:30)
[2021-01-12] MEDS: Lorazepam 0.5 MG TAB PO PRN ×2 (14:41→21:20)
[2021-01-12] MEDS ORDERED: Milk Of Magnesia 30 ML UDCUP PO PRN (16:15)
[2021-01-12] MEDS: DULoxetine 60 MG CAP PO SCH (21:21)
[2021-01-13] MEDS: traMADol HCl 50 MG TAB PO PRN ×2 (01:18→08:42)
[2021-01-13] MEDS: Lorazepam 0.5 MG TAB PO PRN ×2 (01:18→21:50)
[2021-01-13] MEDS: Acetaminophen 325 MG TAB PO SCH ×5 (05:25→21:48)
[2021-01-13] MEDS: Levothyroxine Sodium 125 MCG TAB PO SCH (05:25)
[2021-01-13] MEDS: Diclofenac 1% 100 GM GEL TP SCH ×3 (08:41→21:45)
[2021-01-13] MEDS: Pramipexole Di-HCl 1 MG TAB PO SCH ×3 (08:42→21:48)
[2021-01-13] MEDS: Apixaban 5 MG TAB PO SCH ×2 (08:42→21:45)
[2021-01-13] MEDS: Aspirin Chewable 81 MG TAB PO SCH (08:43)
[2021-01-13] MEDS: Sulfameth/Trimethoprim DS 800-160mg TAB PO SCH ×2 (08:43→21:48)
[2021-01-13] MEDS: Polyethylene Glycol 3350 17 GM Packet PO SCH (08:43)
[2021-01-13] MEDS: Furosemide 20 MG TAB PO SCH (08:43)
[2021-01-13] MEDS: levETIRAcetam 500 MG TAB PO SCH ×2 (08:43→21:47)
[2021-01-13] MEDS: Budesonide 0.5 MG/2 ML NEB NEB SCH ×2 (11:27→19:25)
[2021-01-13] MEDS: DULoxetine 60 MG CAP PO SCH (21:47)
[2021-01-14] MEDS: Acetaminophen 325 MG TAB PO SCH ×2 (06:02→10:27)
[2021-01-14] MEDS: Levothyroxine Sodium 125 MCG TAB PO SCH (06:03)
[2021-01-14] MEDS ORDERED: Milk Of Magnesia 30 ML UDCUP PO SCH (08:15)
[2021-01-14] MEDS: Polyethylene Glycol 3350 17 GM Packet PO SCH (08:20)
[2021-01-14] MEDS: traMADol HCl 50 MG TAB PO PRN (08:20)
[2021-01-14] MEDS: Lorazepam 0.5 MG TAB PO PRN (08:21)
[2021-01-14] MEDS: Aspirin Chewable 81 MG TAB PO SCH (08:22)
[2021-01-14] MEDS: levETIRAcetam 500 MG TAB PO SCH (08:22)
[2021-01-14] MEDS: Pramipexole Di-HCl 1 MG TAB PO SCH (08:23)
[2021-01-14] MEDS: Furosemide 20 MG TAB PO SCH (08:23)
[2021-01-14] MEDS: Sulfameth/Trimethoprim DS 800-160mg TAB PO SCH (08:24)
[2021-01-14] MEDS: Diclofenac 1% 100 GM GEL TP SCH (08:25)
[2021-01-14] MEDS: Budesonide 0.5 MG/2 ML NEB NEB SCH (10:23)
[2021-01-14] MEDS: Apixaban 5 MG TAB PO SCH (10:25)
[2021-01-14 11:59] VITALS: BP 145/90; TEMP 98.6
[2021-01-14] MEDS ORDERED: Fleet Enema 133 ML BOT FS PRN (15:00)
== END 2021-01-14 13:30 | disposition critical access hospital (66) | DRG 871 ==
LOC: ERS 14:04 → 3SE 17:51
PROVIDERS: ADMIT Specialist; ATTEND Specialist
PROC: XW023U6 Introduction of COVID-19 Vaccine into Muscle, Percutaneous Approach, New Technology Group 6 (ICD-10-PCS; principal; 2021-01-12)
DX: A41.9 Sepsis, unspecified organism (principal); G93.41 Metabolic encephalopathy; N39.0 Urinary tract infection, site not specified; J96.11 Chronic respiratory failure with hypoxia; F33.9 Major depressive disorder, recurrent, unspecified; I50.32 Chronic diastolic (congestive) heart failure; I48.20 Chronic atrial fibrillation, unspecified; Z68.41 Body mass index [BMI] 40.0-44.9, adult; R65.20 Severe sepsis without septic shock; Z20.822 Contact with and (suspected) exposure to COVID-19; Z23 Encounter for immunization; G44.209 Tension-type headache, unspecified, not intractable; K44.9 Diaphragmatic hernia without obstruction or gangrene; K21.9 Gastro-esophageal reflux disease without esophagitis; I87.2 Venous insufficiency (chronic) (peripheral); J44.9 Chronic obstructive pulmonary disease, unspecified; E03.9 Hypothyroidism, unspecified; I25.10 Atherosclerotic heart disease of native coronary artery without angina pectoris; E78.5 Hyperlipidemia, unspecified; I27.20 Pulmonary hypertension, unspecified; G25.81 Restless legs syndrome; M06.9 Rheumatoid arthritis, unspecified; E66.01 Morbid (severe) obesity due to excess calories; K59.09 Other constipation; Z90.49 Acquired absence of other specified parts of digestive tract; Z86.73 Personal history of transient ischemic attack (TIA), and cerebral infarction without residual deficits; Z90.710 Acquired absence of both cervix and uterus; Z90.89 Acquired absence of other organs; Z88.4 Allergy status to anesthetic agent; Z88.1 Allergy status to other antibiotic agents; Z88.5 Allergy status to narcotic agent; Z88.0 Allergy status to penicillin; Z88.8 Allergy status to other drugs, medicaments and biological substances
CPT/HCPCS: 0031A; 36415; 36416; 51701; 70450; 70544; 70551; 71045; 71046; 80048; 80053; 81003; 81015; 82533; 83880; 84443; 84484; 85025; 85610; 85730; 87077; 87086; 87186; 91303; 93005; 95712; 95819; 95957; J2060; J7620; J7626; U0003; U0005

== ENCOUNTER 2021-06-13 09:42 | Inpatient (IN) | payer MEDICARE, MEDICAID ==
[2021-06-13] MEDS ORDERED: Dexamethasone 4 mg/ml Vial ONE ×2 (10:47→10:49)
[2021-06-13] MEDS ORDERED: diphenhydrAMINE 50 MG/ML VIAL ONE (10:47)
[2021-06-13] MEDS ORDERED: Metoclopramide HCl 10 MG/2 ML VIAL ONE (10:47)
[2021-06-13 10:48] LABS: #Basophils 0.1 thou/uL (0.0-0.2); #Eosinphils 0.4 thou/uL (0.0-0.7); #Lymphocytes 1.5 thou/uL (1.20-3.40); #Monocytes 0.4 thou/uL (0.11-0.59); #Neutrophils 2.5 thou/uL (1.40-6.50); %Eosinophils 7.4 % (0.0-10.0); %Lymphocytes 31.8 % (21.0-51.0); %Monocytes 8.1 % (0.0-10.0); %Neutrophils 50.7 % (42.0-75.0); Hemoglobin 12.4 g/dL (12.0-16.0); Mean Corpuscular HGB CONC 31.8 g/dL (32.0-36.0); Mean Corpuscular Hemoglobin 32.3 pg (27.0-31.0); Mean Platelet Volume 7.6 fL (7.4-10.4); Platelet Count 166 thou/uL (130-400); RBC Distribution Width 11.3 % (11.5-14.5); Red Blood Cell (RBC) Count 3.83 mill/uL (4.20-5.40); White Blood Cell (WBC) Count 4.8 thou/uL (4.8-10.8)
[2021-06-13 11:15] LABS: AST (SGOT) 16 U/L (5-34); Albumin 3.7 g/dL (3.4-4.8); Alkaline Phosphatase 58 U/L (40-110); Anion Gap 13 mmol/L (10-20); BUN (Urea Nitrogen) 20 mg/dL (9.8-20.1); Bilirubin, Total 0.5 mg/dL (0.2-1.2); Calc. Creatinine Clearance 0 mL/min (70-130); Calcium 9.6 mg/dL (7.8-10.44); Carbon Dioxide 31 mmol/L (23-31); Chloride 98 mmol/L (98-107); Globulin 3.3 g/dL (2.4-3.5); Glucose 96 mg/dL (83-110); Potassium 4.7 mmol/L (3.5-5.1); Sodium 137 mmol/L (136-145)
[2021-06-13 11:40] LABS: ALT (SGPT) 9 U/L (8-55)
[2021-06-13] MEDS ORDERED: hydrALAZINE 20 MG/ML VIAL ONE (12:19)
[2021-06-13] MEDS ORDERED: Lorazepam 2 MG/ML VIAL ONE (12:31)
[2021-06-13] MEDS ORDERED: Budesonide 0.5 MG/2 ML NEB NEB SCH (18:30)
[2021-06-13] MEDS ORDERED: Nitroglycerin 0.4 MG TAB (25 Tab Bottle) SL PRN (18:49)
[2021-06-13] MEDS ORDERED: Diclofenac 1% 100 GM GEL TP PRN (18:53)
[2021-06-13] MEDS ORDERED: Acetaminophen 325 MG TAB PO PRN (19:02)
[2021-06-13] MEDS ORDERED: Ondansetron PF 4 MG/2 ML Vial IVP PRN (19:02)
[2021-06-13] MEDS ORDERED: Diltiazem HCl 125 MG, Admixture Fee 1 EACH in Sodium Chloride 0.9% 100 ML IVPB SCH (21:00)
[2021-06-13] MEDS ORDERED: Furosemide 40 MG/4 ML VIAL SLOW IVP SCH (21:00)
[2021-06-13] MEDS: DULoxetine 60 MG CAP PO SCH (21:53)
[2021-06-13] MEDS: Apixaban 5 MG TAB PO SCH (21:53)
[2021-06-13] MEDS: levETIRAcetam 500 MG TAB PO SCH (21:53)
[2021-06-13] MEDS: Pramipexole Di-HCl 1 MG TAB PO SCH (21:53)
[2021-06-14 00:10] LABS: SARS-CoV-2 PCR by NAA DETECTED (NotDetected)
[2021-06-14 00:37] LABS: Bilirubin Negative (Negative); Blood, Urine 2+ (Negative); Clarity Clear (Clear); Glucose, Urine (Dipstick) Normal (Negative); Ketone, Urine 10 mg/dL (Negative); Leukocyte 500 Leu/uL (Negative); Nitrite Negative (Negative); Protein, Urine (Dipstick) 100 mg/dL (Neg-Trace); Specific Gravity, Urine 1.021 (1.002-1.036); Squamous Epithelial 0-3 HPF (0-3); Urobilinogen Normal mg/dL (Less than 2)
[2021-06-14 00:46] LABS: Bacteria/HPF 1+ HPF (None Seen)
[2021-06-14 05:06] LABS: Hemoglobin A1c 4.9 % (4.0-6.0)
[2021-06-14 05:21] LABS: #Lymphocytes 1.1 thou/uL (1.20-3.40); #Monocytes 0.9 thou/uL (0.11-0.59); #Neutrophils 4.9 thou/uL (1.40-6.50); %Basophils 0.5 % (0.0-1.0); %Eosinophils 0.1 % (0.0-10.0); %Lymphocytes 15.6 % (21.0-51.0); %Monocytes 12.7 % (0.0-10.0); %Neutrophils 71.1 % (42.0-75.0); Hemoglobin 12.3 g/dL (12.0-16.0); Mean Corpuscular HGB CONC 32.2 g/dL (32.0-36.0); Mean Corpuscular Volume 99.6 fL (78.0-98.0); Mean Platelet Volume 7.6 fL (7.4-10.4); Platelet Count 201 thou/uL (130-400); RBC Distribution Width 11.6 % (11.5-14.5); Red Blood Cell (RBC) Count 3.83 mill/uL (4.20-5.40); White Blood Cell (WBC) Count 6.9 thou/uL (4.8-10.8)
[2021-06-14] MEDS ORDERED: REMDESIVIR 200 MG in Sodium Chloride 0.9% 250 ML 210 ML IV SCH ×2 (05:30→09:00)
[2021-06-14 05:36] LABS: Anion Gap 18 mmol/L (10-20); BUN (Urea Nitrogen) 28 mg/dL (9.8-20.1); Calc. Creatinine Clearance 75 mL/min (70-130); Calcium 9.7 mg/dL (7.8-10.44); Carbon Dioxide 25 mmol/L (23-31); Chloride 98 mmol/L (98-107); Glucose 137 mg/dL (83-110); Potassium 4.4 mmol/L (3.5-5.1); Sodium 137 mmol/L (136-145)
[2021-06-14] MEDS: Levothyroxine Sodium 125 MCG TAB PO SCH (06:40)
[2021-06-14] MEDS: Aspirin Chewable 81 MG TAB PO SCH (08:30)
[2021-06-14] MEDS: Pramipexole Di-HCl 1 MG TAB PO SCH ×3 (08:30→21:36)
[2021-06-14] MEDS: Dexamethasone 4 mg/ml Vial SLOW IVP SCH (08:30)
[2021-06-14] MEDS: Apixaban 5 MG TAB PO SCH ×2 (08:31→21:36)
[2021-06-14] MEDS: levETIRAcetam 500 MG TAB PO SCH ×2 (08:31→21:36)
[2021-06-14] MEDS ORDERED: Furosemide 40 MG TAB PO SCH (09:00)
[2021-06-14] MEDS ORDERED: FLU VACC QS2021-22(65YR UP)/PF 240 MCG/0.7 ML SYRINGE IM ONE (09:00)
[2021-06-14] MEDS ORDERED: Hydroxychloroquine Sulfate 200 MG TAB PO SCH (09:00)
[2021-06-14] MEDS ORDERED: Meropenem 1 GM in Sodium Chloride 0.9% 100 ML IVPB SCH (09:00)
[2021-06-14] MEDS ORDERED: ALPRAZolam 0.5 MG TAB PO SCH ×2 (10:00→15:00)
[2021-06-14] MEDS ORDERED: Furosemide 40 MG/4 ML VIAL SLOW IVP SCH (10:45)
[2021-06-14] MEDS: Albuterol 200 PUFF (6.7GM INHALER) INH SCH ×4 (12:04→21:37)
[2021-06-14] MEDS: Ipratropium Oral Inhaler INH SCH ×4 (12:04→20:07)
[2021-06-14] MEDS: Furosemide 40 MG/4 ML VIAL SLOW IVP SCH (14:15)
[2021-06-14] MEDS: Zinc Sulfate 220 MG CAP PO SCH (14:15)
[2021-06-14 14:35] LABS: Actual Bicarbonate (HCO3a) 29.3 mEq/L (22-28); Base Excess (BEa) 3.4 mEq/L (-2.0 to +3.0); CO2 Tension 49.6 mmHg (35.0-45.0); Calcium, Ionized (arterial) 1.16 mmol/L (1.12-1.30); Carboxyhemoglobin (COHb) 1.3 gm% (0.0-3.0); Hemoglobin (Hb) 12.8 g/dL (12.0-16.0); O2 Tension (PaO2), arterial 87.3 mmHg (> 60.0); Potassium - ABG Lab 3.77 mmol/L (3.70-5.30); pH, Arterial 7.39 (7.35-7.45)
[2021-06-14 14:39] LABS: Puncture Site LRA
[2021-06-14] MEDS: ALPRAZolam 1 MG TAB PO SCH ×2 (15:16→21:35)
[2021-06-14] MEDS: Meropenem 1 GM in Sodium Chloride 0.9% 100 ML IVPB SCH (18:12)
[2021-06-14] MEDS: DULoxetine 60 MG CAP PO SCH (21:36)
[2021-06-15] MEDS: Meropenem 1 GM in Sodium Chloride 0.9% 100 ML IVPB SCH ×3 (00:34→16:14)
[2021-06-15] MEDS: Albuterol 200 PUFF (6.7GM INHALER) INH SCH ×6 (00:35→20:37)
[2021-06-15] MEDS: Furosemide 40 MG/4 ML VIAL SLOW IVP SCH ×2 (05:34→14:08)
[2021-06-15] MEDS: Levothyroxine Sodium 125 MCG TAB PO SCH (05:38)
[2021-06-15 06:06] LABS: Hemoglobin 11.8 g/dL (12.0-16.0); Mean Corpuscular HGB CONC 32.4 g/dL (32.0-36.0); Mean Corpuscular Hemoglobin 32.3 pg (27.0-31.0); Mean Corpuscular Volume 99.9 fL (78.0-98.0); Platelet Count 130 thou/uL (130-400); RBC Distribution Width 11.8 % (11.5-14.5); Red Blood Cell (RBC) Count 3.66 mill/uL (4.20-5.40)
[2021-06-15] MEDS: Ipratropium Oral Inhaler INH SCH ×4 (06:08→18:17)
[2021-06-15 06:19] LABS: Band 7 % (5-11); Lymphocytes 18 % (21-51); MDiff Complete? YES; Monocytes 15 % (0-10); Neutrophil 60 % (42-75)
[2021-06-15 06:37] LABS: Chloride 97 mmol/L (98-107); Potassium 4.2 mmol/L (3.5-5.1)
[2021-06-15 06:38] LABS: Calcium 9.2 mg/dL (7.8-10.44); Sodium 137 mmol/L (136-145)
[2021-06-15 06:39] LABS: Glucose 92 mg/dL (83-110)
[2021-06-15 06:40] LABS: Carbon Dioxide 26 mmol/L (23-31)
[2021-06-15 06:42] LABS: CRP (Inflammatory) 1.24 mg/dL (= or < 0.5); Calc. Creatinine Clearance 74 mL/min (70-130)
[2021-06-15 06:43] LABS: BUN (Urea Nitrogen) 43 mg/dL (9.8-20.1)
[2021-06-15 06:52] LABS: Anion Gap 18 mmol/L (10-20)
[2021-06-15] MEDS: Pramipexole Di-HCl 1 MG TAB PO SCH ×4 (08:22→20:33)
[2021-06-15] MEDS: ALPRAZolam 1 MG TAB PO SCH ×4 (08:23→20:30)
[2021-06-15] MEDS: Spironolactone 25 MG TAB PO SCH ×2 (08:23→08:52)
[2021-06-15] MEDS: Apixaban 5 MG TAB PO SCH ×3 (08:23→20:31)
[2021-06-15] MEDS: levETIRAcetam 500 MG TAB PO SCH ×3 (08:23→20:31)
[2021-06-15] MEDS: Aspirin Chewable 81 MG TAB PO SCH ×2 (08:23→08:53)
[2021-06-15] MEDS ORDERED: Furosemide 40 MG/4 ML VIAL SLOW IVP SCH (09:00)
[2021-06-15] MEDS ORDERED: Nitroglycerin 0.4 MG TAB (25 Tab Bottle) SL PRN (09:35)
[2021-06-15] MEDS ORDERED: Lactase 9,000 UNIT CHEWABLE TAB PO PRN (09:35)
[2021-06-15] MEDS: Acetaminophen 325 MG TAB PO SCH ×4 (10:25→20:34)
[2021-06-15] MEDS: Dexamethasone 4 mg/ml Vial SLOW IVP SCH (12:20)
[2021-06-15] MEDS: REMDESIVIR 100 MG in Sodium Chloride 0.9% 250 ML 230 ML IV SCH (12:20)
[2021-06-15] MEDS: Zinc Sulfate 220 MG CAP PO SCH (14:48)
[2021-06-15] MEDS ORDERED: Non-Formulary Item 1 EACH (Diclofenac Sodium [Diclofenac Sodium 1% Gel] 100 GM Tube) TOP SCH (15:00)
[2021-06-15] MEDS: Diclofenac 1% 100 GM GEL TP SCH ×2 (16:14→20:39)
[2021-06-15] MEDS: DULoxetine 60 MG CAP PO SCH (20:36)
[2021-06-15] MEDS: Colchicine 0.3 MG TAB PO SCH (20:40)
[2021-06-15] MEDS ORDERED: Colchicine 0.6 MG TAB PO SCH (21:00)
[2021-06-16] MEDS: Albuterol 200 PUFF (6.7GM INHALER) INH SCH ×6 (02:01→21:41)
[2021-06-16 05:13] LABS: BUN (Urea Nitrogen) 51 mg/dL (9.8-20.1); CRP (Inflammatory) 2.44 mg/dL (= or < 0.5); Calc. Creatinine Clearance 72 mL/min (70-130); Calcium 8.9 mg/dL (7.8-10.44); Glucose 109 mg/dL (83-110)
[2021-06-16 05:15] LABS: ALT (SGPT) 22 U/L (8-55); AST (SGOT) 48 U/L (5-34); Albumin 3.7 g/dL (3.4-4.8); Alkaline Phosphatase 57 U/L (40-110); Bilirubin, Direct 0.2 mg/dL (0.1-0.3); Bilirubin, Total 0.5 mg/dL (0.2-1.2); Protein, Total 7.2 g/dL (5.8-8.1)
[2021-06-16 05:16] LABS: INR-International Normal Ratio 1.7; Prothrombin Time 20.6 sec (12.0-14.7)
[2021-06-16 05:18] LABS: D-Dimer Test 0.65 *mcg/mL (0.27-0.43)
[2021-06-16 05:24] LABS: Anion Gap 13 mmol/L (10-20); Carbon Dioxide 40 mmol/L (23-31); Chloride 93 mmol/L (98-107); Potassium 3.3 mmol/L (3.5-5.1); Sodium 143 mmol/L (136-145)
[2021-06-16] MEDS: Levothyroxine Sodium 125 MCG TAB PO SCH (05:34)
[2021-06-16] MEDS: Meropenem 1 GM in Sodium Chloride 0.9% 100 ML IVPB SCH ×2 (05:35→16:50)
[2021-06-16] MEDS: Furosemide 40 MG/4 ML VIAL SLOW IVP SCH ×2 (05:35→15:43)
[2021-06-16] MEDS: Acetaminophen 325 MG TAB PO SCH ×5 (05:35→21:35)
[2021-06-16] MEDS: Ipratropium Oral Inhaler INH SCH ×4 (05:36→21:38)
[2021-06-16 07:14] LABS: Hemoglobin 12.8 g/dL (12.0-16.0); Mean Corpuscular HGB CONC 32.6 g/dL (32.0-36.0); Mean Platelet Volume 8.2 fL (7.4-10.4); Platelet Count 153 thou/uL (130-400); RBC Distribution Width 11.8 % (11.5-14.5); Red Blood Cell (RBC) Count 3.89 mill/uL (4.20-5.40); White Blood Cell (WBC) Count 8.5 thou/uL (4.8-10.8)
[2021-06-16 08:03] LABS: Band 7 % (5-11); Lymphocytes 7 % (21-51); MDiff Complete? YES; Macrocytosis SLIGHT = 6-15 cells (100X) (0-5/hpf); Monocytes 16 % (0-10); Neutrophil 67 % (42-75); Platelet Morphology Comment Appears Adequate; Polychromasia SLIGHT = 2-3 cells (100X) (0-2/hpf); Reactive Lymphocytes 3 % (0-10); Target Cells SLIGHT = 2-5 cells (100X) (0-1/hpf); Tear Drops SLIGHT = 2-5 cells (100X) (0-1/hpf)
[2021-06-16] MEDS: Spironolactone 25 MG TAB PO SCH (09:18)
[2021-06-16] MEDS: ALPRAZolam 1 MG TAB PO SCH ×3 (09:18→22:11)
[2021-06-16] MEDS: Diclofenac 1% 100 GM GEL TP SCH ×3 (09:21→21:36)
[2021-06-16] MEDS: Dexamethasone 4 mg/ml Vial SLOW IVP SCH (09:21)
[2021-06-16] MEDS: Aspirin 81 mg Enteric Coated Tablet PO SCH (09:21)
[2021-06-16] MEDS: Colchicine 0.3 MG TAB PO SCH ×2 (09:21→21:34)
[2021-06-16] MEDS: Apixaban 5 MG TAB PO SCH ×2 (09:21→21:34)
[2021-06-16] MEDS: levETIRAcetam 500 MG TAB PO SCH ×2 (09:22→22:19)
[2021-06-16] MEDS: Pramipexole Di-HCl 1 MG TAB PO SCH ×3 (09:23→21:34)
[2021-06-16] MEDS: REMDESIVIR 100 MG in Sodium Chloride 0.9% 250 ML 230 ML IV SCH (09:23)
[2021-06-16] MEDS ORDERED: Potassium Chloride 20 MEQ TAB PO SCH (11:30)
[2021-06-16] MEDS: Zinc Sulfate 220 MG CAP PO SCH (15:43)
[2021-06-16] MEDS: Potassium Chloride 20 MEQ in Sodium Chloride 0.45% 1,000 ML IVPB SCH (17:55)
[2021-06-16] MEDS: DULoxetine 60 MG CAP PO SCH (21:45)
[2021-06-16] MEDS ORDERED: levETIRAcetam 500 mg/5 ml Oral Solution PO SCH (22:00)
[2021-06-17] MEDS: Potassium Chloride 20 MEQ in Sodium Chloride 0.45% 1,000 ML IVPB SCH (02:14)
[2021-06-17] MEDS: Albuterol 200 PUFF (6.7GM INHALER) INH SCH ×7 (02:14→21:59)
[2021-06-17] MEDS: Meropenem 1 GM in Sodium Chloride 0.9% 100 ML IVPB SCH ×2 (05:15→17:07)
[2021-06-17] MEDS: Levothyroxine Sodium 125 MCG TAB PO SCH (05:15)
[2021-06-17] MEDS: Furosemide 40 MG/4 ML VIAL SLOW IVP SCH ×2 (05:15→17:00)
[2021-06-17] MEDS: Acetaminophen 325 MG TAB PO SCH ×5 (05:15→21:59)
[2021-06-17] MEDS: Ipratropium Oral Inhaler INH SCH ×4 (05:48→22:00)
[2021-06-17 05:56] LABS: ALT (SGPT) 30 U/L (8-55); AST (SGOT) 50 U/L (5-34); Alkaline Phosphatase 55 U/L (40-110); Bilirubin, Direct 0.3 mg/dL (0.1-0.3); Bilirubin, Total 0.5 mg/dL (0.2-1.2); Protein, Total 7.6 g/dL (5.8-8.1)
[2021-06-17 05:57] LABS: INR-International Normal Ratio 2.6; Prothrombin Time 28.1 sec (12.0-14.7)
[2021-06-17] MEDS ORDERED: 1/2 NS w/KCL 20 mEq 1,000 ML IV SCH (08:00)
[2021-06-17] MEDS: Spironolactone 25 MG TAB PO SCH (08:20)
[2021-06-17] MEDS: ALPRAZolam 1 MG TAB PO SCH ×2 (08:21→17:00)
[2021-06-17] MEDS: Apixaban 5 MG TAB PO SCH ×2 (08:22→21:59)
[2021-06-17] MEDS: Aspirin 81 mg Enteric Coated Tablet PO SCH (08:23)
[2021-06-17] MEDS: Colchicine 0.3 MG TAB PO SCH ×2 (08:23→21:58)
[2021-06-17] MEDS: Diclofenac 1% 100 GM GEL TP SCH ×3 (08:24→22:01)
[2021-06-17] MEDS: Dexamethasone 4 mg/ml Vial SLOW IVP SCH (08:26)
[2021-06-17] MEDS: levETIRAcetam 500 mg/5 ml Oral Solution PO SCH ×2 (08:27→22:03)
[2021-06-17] MEDS: Pramipexole Di-HCl 1 MG TAB PO SCH ×3 (08:28→21:59)
[2021-06-17] MEDS: REMDESIVIR 100 MG in Sodium Chloride 0.9% 250 ML 230 ML IV SCH (08:46)
[2021-06-17] MEDS ORDERED: Dextrose 5 %-0.45 % NaCl 1,000 ML IV SCH (09:45)
[2021-06-17 10:02] LABS: Actual Bicarbonate (HCO3a) 33.1 mEq/L (22-28); Base Excess (BEa) 6.4 mEq/L (-2.0 to +3.0); CO2 Tension 58.6 mmHg (35.0-45.0); Carboxyhemoglobin (COHb) 0.7 gm% (0.0-3.0); Hemoglobin (Hb) 11.5 g/dL (12.0-16.0); O2 Tension (PaO2), arterial 111.7 mmHg (> 60.0); pH, Arterial 7.37 (7.35-7.45)
[2021-06-17 10:03] LABS: Analyzer IN Cardio OR; Potassium - ABG Lab 3.68 mmol/L (3.70-5.30); Puncture Site LRA
[2021-06-17] MEDS: Zinc Sulfate 220 MG CAP PO SCH (17:10)
[2021-06-17] MEDS ORDERED: ALPRAZolam 1 MG TAB PO SCH (21:00)
[2021-06-17] MEDS: DULoxetine 60 MG CAP PO SCH (21:59)
[2021-06-18] MEDS: Albuterol 200 PUFF (6.7GM INHALER) INH SCH ×6 (01:08→21:23)
[2021-06-18 05:01] LABS: ALT (SGPT) 21 U/L (8-55); AST (SGOT) 35 U/L (5-34); Albumin 3.4 g/dL (3.4-4.8); Alkaline Phosphatase 50 U/L (40-110); Bilirubin, Direct 0.2 mg/dL (0.1-0.3); Bilirubin, Total 0.3 mg/dL (0.2-1.2); Protein, Total 6.7 g/dL (5.8-8.1)
[2021-06-18] MEDS: Acetaminophen 325 MG TAB PO SCH ×5 (05:39→21:19)
[2021-06-18] MEDS: Meropenem 1 GM in Sodium Chloride 0.9% 100 ML IVPB SCH (05:39)
[2021-06-18] MEDS: Levothyroxine Sodium 125 MCG TAB PO SCH (05:40)
[2021-06-18] MEDS: Ipratropium Oral Inhaler INH SCH ×4 (05:41→18:02)
[2021-06-18 07:09] LABS: INR-International Normal Ratio 2.2; Prothrombin Time 24.6 sec (12.0-14.7)
[2021-06-18] MEDS ORDERED: Spironolactone 25 MG TAB PO SCH (08:00)
[2021-06-18] MEDS: Aspirin 81 mg Enteric Coated Tablet PO SCH (10:56)
[2021-06-18] MEDS: Apixaban 5 MG TAB PO SCH ×2 (10:56→21:18)
[2021-06-18] MEDS: levETIRAcetam 500 mg/5 ml Oral Solution PO SCH ×2 (10:56→21:19)
[2021-06-18] MEDS: Pramipexole Di-HCl 1 MG TAB PO SCH ×3 (10:56→21:19)
[2021-06-18] MEDS: Diclofenac 1% 100 GM GEL TP SCH ×3 (10:58→21:18)
[2021-06-18] MEDS: Colchicine 0.3 MG TAB PO SCH ×2 (10:58→21:18)
[2021-06-18 15:58] LABS: Anion Gap 25 mmol/L (10-20); BUN (Urea Nitrogen) 74 mg/dL (9.8-20.1); Calc. Creatinine Clearance 46 mL/min (70-130); Carbon Dioxide 22 mmol/L (23-31); Chloride 99 mmol/L (98-107); Potassium 4.5 mmol/L (3.5-5.1); Sodium 141 mmol/L (136-145)
[2021-06-18 15:59] LABS: Calcium 8.4 mg/dL (7.8-10.44); Glucose 128 mg/dL (83-110)
[2021-06-18] MEDS: REMDESIVIR 100 MG in Sodium Chloride 0.9% 250 ML 230 ML IV SCH (16:17)
[2021-06-18] MEDS: Dexamethasone 4 mg/ml Vial SLOW IVP SCH (16:17)
[2021-06-18] MEDS: Zinc Sulfate 220 MG CAP PO SCH (16:22)
[2021-06-18] MEDS: DULoxetine 60 MG CAP PO SCH (21:19)
[2021-06-19] MEDS: Albuterol 200 PUFF (6.7GM INHALER) INH SCH ×6 (01:33→21:33)
[2021-06-19] MEDS: Sodium Chloride 0.9% 1,000 ML IV SCH ×2 (03:27)
[2021-06-19] MEDS: Ipratropium Oral Inhaler INH SCH (06:16)
[2021-06-19] MEDS: Acetaminophen 325 MG TAB PO SCH ×5 (06:16→21:33)
[2021-06-19] MEDS: Levothyroxine Sodium 125 MCG TAB PO SCH (06:26)
[2021-06-19 06:51] LABS: Hemoglobin 11.8 g/dL (12.0-16.0); Mean Corpuscular HGB CONC 31.7 g/dL (32.0-36.0); Mean Corpuscular Hemoglobin 32.3 pg (27.0-31.0); Mean Platelet Volume 8.4 fL (7.4-10.4); Platelet Count 184 thou/uL (130-400); RBC Distribution Width 11.8 % (11.5-14.5); Red Blood Cell (RBC) Count 3.65 mill/uL (4.20-5.40); White Blood Cell (WBC) Count 10.9 thou/uL (4.8-10.8)
[2021-06-19 07:17] LABS: ALT (SGPT) 18 U/L (8-55); AST (SGOT) 26 U/L (5-34); Albumin 3.2 g/dL (3.4-4.8); Alkaline Phosphatase 47 U/L (40-110); Anion Gap 14 mmol/L (10-20); BUN (Urea Nitrogen) 72 mg/dL (9.8-20.1); Bilirubin, Total 0.4 mg/dL (0.2-1.2); Calc. Creatinine Clearance 57 mL/min (70-130); Calcium 7.9 mg/dL (7.8-10.44); Carbon Dioxide 30 mmol/L (23-31); Chloride 98 mmol/L (98-107); Glucose 90 mg/dL (83-110); Potassium 3.5 mmol/L (3.5-5.1); Protein, Total 6.2 g/dL (5.8-8.1); Sodium 138 mmol/L (136-145)
[2021-06-19] MEDS ORDERED: REMDESIVIR 100 MG in Sodium Chloride 0.9% 250 ML 230 ML IV SCH (08:00)
[2021-06-19] MEDS ORDERED: Hydroxychloroquine Sulfate 200 MG TAB PO SCH (09:00)
[2021-06-19] MEDS: Dexamethasone 4 mg/ml Vial SLOW IVP SCH (09:48)
[2021-06-19] MEDS: Colchicine 0.3 MG TAB PO SCH ×2 (09:48→21:36)
[2021-06-19] MEDS: Pramipexole Di-HCl 1 MG TAB PO SCH ×3 (09:49→21:35)
[2021-06-19] MEDS: Aspirin 81 mg Enteric Coated Tablet PO SCH (09:50)
[2021-06-19] MEDS: levETIRAcetam 500 mg/5 ml Oral Solution PO SCH ×2 (09:50→21:33)
[2021-06-19] MEDS: Apixaban 5 MG TAB PO SCH ×2 (09:50→21:34)
[2021-06-19] MEDS: Diclofenac 1% 100 GM GEL TP SCH ×3 (09:51→21:34)
[2021-06-19] MEDS: Dextrose 5 %-0.45 % NaCl 1,000 ML IV SCH ×2 (09:52→22:10)
[2021-06-19] MEDS: Zinc Sulfate 220 MG CAP PO SCH (15:21)
[2021-06-19] MEDS: busPIRone HCl 5 MG TAB PO SCH (21:33)
[2021-06-19] MEDS: DULoxetine 60 MG CAP PO SCH (21:34)
[2021-06-20] MEDS: traMADol HCl 50 MG TAB PO PRN ×2 (01:03→13:31)
[2021-06-20] MEDS: Albuterol 200 PUFF (6.7GM INHALER) INH SCH ×6 (02:18→21:06)
[2021-06-20 05:12] LABS: #Basophils 0.1 thou/uL (0.0-0.2); #Lymphocytes 1.2 thou/uL (1.20-3.40); #Monocytes 0.7 thou/uL (0.11-0.59); #Neutrophils 3.8 thou/uL (1.40-6.50); %Basophils 1.4 % (0.0-1.0); %Eosinophils 0.2 % (0.0-10.0); %Lymphocytes 20.2 % (21.0-51.0); %Monocytes 12.4 % (0.0-10.0); %Neutrophils 65.7 % (42.0-75.0); Hemoglobin 10.6 g/dL (12.0-16.0); Mean Corpuscular HGB CONC 32.8 g/dL (32.0-36.0); Mean Corpuscular Hemoglobin 32.7 pg (27.0-31.0); Mean Corpuscular Volume 99.6 fL (78.0-98.0); Mean Platelet Volume 7.9 fL (7.4-10.4); Platelet Count 179 thou/uL (130-400); RBC Distribution Width 11.7 % (11.5-14.5); Red Blood Cell (RBC) Count 3.24 mill/uL (4.20-5.40); White Blood Cell (WBC) Count 5.8 thou/uL (4.8-10.8)
[2021-06-20 05:34] LABS: Anion Gap 6 mmol/L (10-20); BUN (Urea Nitrogen) 55 mg/dL (9.8-20.1); CRP (Inflammatory) 0.71 mg/dL (= or < 0.5); Calc. Creatinine Clearance 79 mL/min (70-130); Calcium 7.7 mg/dL (7.8-10.44); Carbon Dioxide 35 mmol/L (23-31); Chloride 100 mmol/L (98-107); Glucose 119 mg/dL (83-110); Potassium 3.2 mmol/L (3.5-5.1); Sodium 138 mmol/L (136-145)
[2021-06-20] MEDS: Levothyroxine Sodium 125 MCG TAB PO SCH (06:36)
[2021-06-20] MEDS: Acetaminophen 325 MG TAB PO SCH ×5 (06:36→21:07)
[2021-06-20] MEDS: Potassium Chloride 20 MEQ TAB PO SCH ×2 (08:56→15:36)
[2021-06-20] MEDS: Albumin 25% 25 GM/100 ML BOT IVPB SCH ×3 (08:56→21:06)
[2021-06-20] MEDS: levETIRAcetam 500 mg/5 ml Oral Solution PO SCH ×3 (08:56→21:08)
[2021-06-20] MEDS: Dexamethasone 4 mg/ml Vial SLOW IVP SCH (08:56)
[2021-06-20] MEDS: Aspirin 81 mg Enteric Coated Tablet PO SCH (08:57)
[2021-06-20] MEDS: Apixaban 5 MG TAB PO SCH ×2 (08:57→21:07)
[2021-06-20] MEDS: busPIRone HCl 5 MG TAB PO SCH ×2 (08:57→21:07)
[2021-06-20] MEDS: Pramipexole Di-HCl 1 MG TAB PO SCH ×3 (08:57→21:06)
[2021-06-20] MEDS: Diclofenac 1% 100 GM GEL TP SCH ×3 (08:59→21:05)
[2021-06-20] MEDS: Colchicine 0.3 MG TAB PO SCH ×2 (13:10→22:39)
[2021-06-20] MEDS: Zinc Sulfate 220 MG CAP PO SCH (13:31)
[2021-06-20] MEDS: Dextrose 5 %-0.45 % NaCl 1,000 ML IV SCH (13:32)
[2021-06-20] MEDS: Carvedilol 3.125 MG TAB PO SCH (17:12)
[2021-06-20] MEDS: DULoxetine 60 MG CAP PO SCH (21:06)
[2021-06-21] MEDS: Dextrose 5 %-0.45 % NaCl 1,000 ML IV SCH ×3 (01:59→20:02)
[2021-06-21] MEDS: Albumin 25% 25 GM/100 ML BOT IVPB SCH ×2 (02:35→08:06)
[2021-06-21] MEDS: Albuterol 200 PUFF (6.7GM INHALER) INH SCH ×6 (02:35→20:03)
[2021-06-21 05:08] LABS: #Basophils 0.1 thou/uL (0.0-0.2); #Lymphocytes 1.7 thou/uL (1.20-3.40); #Monocytes 0.9 thou/uL (0.11-0.59); #Neutrophils 4.1 thou/uL (1.40-6.50); %Eosinophils 0.6 % (0.0-10.0); %Lymphocytes 24.8 % (21.0-51.0); %Monocytes 13.5 % (0.0-10.0); Hemoglobin 9.7 g/dL (12.0-16.0); Mean Corpuscular HGB CONC 33.1 g/dL (32.0-36.0); Mean Corpuscular Hemoglobin 32.8 pg (27.0-31.0); Mean Corpuscular Volume 99.2 fL (78.0-98.0); Mean Platelet Volume 8.4 fL (7.4-10.4); Platelet Count 164 thou/uL (130-400); RBC Distribution Width 11.8 % (11.5-14.5); Red Blood Cell (RBC) Count 2.97 mill/uL (4.20-5.40); White Blood Cell (WBC) Count 6.8 thou/uL (4.8-10.8)
[2021-06-21 05:13] LABS: Anion Gap 11 mmol/L (10-20); BUN (Urea Nitrogen) 32 mg/dL (9.8-20.1); CRP (Inflammatory) Less than 0.50 mg/dL (= or < 0.5); Calc. Creatinine Clearance 84 mL/min (70-130); Calcium 8.1 mg/dL (7.8-10.44); Carbon Dioxide 30 mmol/L (23-31); Chloride 103 mmol/L (98-107); Glucose 105 mg/dL (83-110); Potassium 3.6 mmol/L (3.5-5.1); Sodium 140 mmol/L (136-145)
[2021-06-21] MEDS: Acetaminophen 325 MG TAB PO SCH ×5 (05:57→20:05)
[2021-06-21] MEDS: Levothyroxine Sodium 125 MCG TAB PO SCH (05:58)
[2021-06-21] MEDS: Potassium Chloride 20 MEQ TAB PO SCH ×2 (08:04→17:17)
[2021-06-21] MEDS: levETIRAcetam 500 mg/5 ml Oral Solution PO SCH ×2 (08:04→20:05)
[2021-06-21] MEDS: Apixaban 5 MG TAB PO SCH ×2 (08:04→20:04)
[2021-06-21] MEDS: busPIRone HCl 5 MG TAB PO SCH ×2 (08:04→20:04)
[2021-06-21] MEDS: Carvedilol 3.125 MG TAB PO SCH ×2 (08:05→17:18)
[2021-06-21] MEDS: Dexamethasone 4 mg/ml Vial SLOW IVP SCH (08:05)
[2021-06-21] MEDS: Colchicine 0.3 MG TAB PO SCH ×2 (08:05→20:04)
[2021-06-21] MEDS: Aspirin 81 mg Enteric Coated Tablet PO SCH (08:05)
[2021-06-21] MEDS: Pramipexole Di-HCl 1 MG TAB PO SCH ×3 (08:05→20:05)
[2021-06-21] MEDS: Diclofenac 1% 100 GM GEL TP SCH ×3 (08:06→20:05)
[2021-06-21] MEDS: Sacubitril 49 MG/Valsartan 51 MG TABLET PO SCH ×2 (08:21→20:04)
[2021-06-21] MEDS: Spironolactone 25 MG TAB PO SCH (08:22)
[2021-06-21] MEDS: Zinc Sulfate 220 MG CAP PO SCH (14:15)
[2021-06-21] MEDS: traMADol HCl 50 MG TAB PO PRN (17:17)
[2021-06-21] MEDS: Lorazepam 0.5 MG TAB PO PRN (20:04)
[2021-06-21] MEDS: DULoxetine 60 MG CAP PO SCH (20:04)
[2021-06-22] MEDS: Albuterol 200 PUFF (6.7GM INHALER) INH SCH ×5 (02:10→17:15)
[2021-06-22] MEDS: Acetaminophen 325 MG TAB PO SCH ×5 (05:45→20:54)
[2021-06-22] MEDS: Levothyroxine Sodium 125 MCG TAB PO SCH (05:45)
[2021-06-22] MEDS: levETIRAcetam 500 mg/5 ml Oral Solution PO SCH ×2 (09:44→20:53)
[2021-06-22] MEDS: Pramipexole Di-HCl 1 MG TAB PO SCH ×3 (09:45→20:53)
[2021-06-22] MEDS: Potassium Chloride 20 MEQ TAB PO SCH ×2 (09:45→17:16)
[2021-06-22] MEDS: Sacubitril 49 MG/Valsartan 51 MG TABLET PO SCH ×2 (09:45→20:54)
[2021-06-22] MEDS: Carvedilol 3.125 MG TAB PO SCH ×2 (09:45→17:16)
[2021-06-22] MEDS: Aspirin 81 mg Enteric Coated Tablet PO SCH (09:45)
[2021-06-22] MEDS: Apixaban 5 MG TAB PO SCH ×2 (09:45→20:54)
[2021-06-22] MEDS: Spironolactone 25 MG TAB PO SCH (09:45)
[2021-06-22] MEDS: Dexamethasone 4 mg/ml Vial SLOW IVP SCH (09:45)
[2021-06-22] MEDS: busPIRone HCl 5 MG TAB PO SCH ×2 (09:45→20:54)
[2021-06-22] MEDS: Lorazepam 0.5 MG TAB PO PRN ×2 (09:46→20:54)
[2021-06-22] MEDS: Dextrose 5 %-0.45 % NaCl 1,000 ML IV SCH (09:47)
[2021-06-22] MEDS: Diclofenac 1% 100 GM GEL TP SCH ×2 (09:49→14:27)
[2021-06-22] MEDS ORDERED: Colchicine 0.6 MG TAB PO SCH (10:15)
[2021-06-22] MEDS ORDERED: Colchicine 0.3 MG TAB PO SCH (10:15)
[2021-06-22] MEDS: traMADol HCl 50 MG TAB PO PRN (14:24)
[2021-06-22] MEDS: Zinc Sulfate 220 MG CAP PO SCH (14:25)
[2021-06-22] MEDS: Colchicine 0.3 MG TAB PO SCH ×2 (17:11→20:53)
[2021-06-22] MEDS: DULoxetine 60 MG CAP PO SCH (20:54)
[2021-06-23] MEDS: Dextrose 5 %-0.45 % NaCl 1,000 ML IV SCH ×2 (02:32→15:10)
[2021-06-23] MEDS: Albuterol 200 PUFF (6.7GM INHALER) INH SCH ×6 (05:17→23:26)
[2021-06-23] MEDS: Diclofenac 1% 100 GM GEL TP SCH ×4 (05:18→20:34)
[2021-06-23] MEDS: Levothyroxine Sodium 125 MCG TAB PO SCH (05:29)
[2021-06-23] MEDS: Acetaminophen 325 MG TAB PO SCH ×5 (05:30→22:37)
[2021-06-23 05:41] LABS: Anion Gap 9 mmol/L (10-20); BUN (Urea Nitrogen) 16 mg/dL (9.8-20.1); Calc. Creatinine Clearance 96 mL/min (70-130); Calcium 8.1 mg/dL (7.8-10.44); Carbon Dioxide 28 mmol/L (23-31); Chloride 106 mmol/L (98-107); Glucose 99 mg/dL (83-110); Potassium 4.4 mmol/L (3.5-5.1); Sodium 139 mmol/L (136-145)
[2021-06-23 06:34] LABS: #Basophils 0.1 thou/uL (0.0-0.2); #Eosinphils 0.1 thou/uL (0.0-0.7); #Lymphocytes 2.5 thou/uL (1.20-3.40); #Monocytes 1.1 thou/uL (0.11-0.59); #Neutrophils 4.4 thou/uL (1.40-6.50); %Basophils 1.2 % (0.0-1.0); %Eosinophils 1.6 % (0.0-10.0); %Lymphocytes 30.4 % (21.0-51.0); %Monocytes 12.9 % (0.0-10.0); %Neutrophils 53.9 % (42.0-75.0); Hemoglobin 10.7 g/dL (12.0-16.0); Mean Corpuscular HGB CONC 30.3 g/dL (32.0-36.0); Mean Corpuscular Hemoglobin 31.2 pg (27.0-31.0); Mean Platelet Volume 8.5 fL (7.4-10.4); Platelet Count 160 thou/uL (130-400); RBC Distribution Width 11.9 % (11.5-14.5); Red Blood Cell (RBC) Count 3.42 mill/uL (4.20-5.40); White Blood Cell (WBC) Count 8.1 thou/uL (4.8-10.8)
[2021-06-23] MEDS: Spironolactone 25 MG TAB PO SCH (09:10)
[2021-06-23] MEDS: Potassium Chloride 20 MEQ TAB PO SCH ×2 (09:10→17:20)
[2021-06-23] MEDS: Carvedilol 3.125 MG TAB PO SCH ×2 (09:10→17:20)
[2021-06-23] MEDS: Apixaban 5 MG TAB PO SCH ×2 (09:11→20:30)
[2021-06-23] MEDS: Pramipexole Di-HCl 1 MG TAB PO SCH ×3 (09:11→20:35)
[2021-06-23] MEDS: Aspirin 81 mg Enteric Coated Tablet PO SCH (09:11)
[2021-06-23] MEDS: busPIRone HCl 5 MG TAB PO SCH ×2 (09:11→20:30)
[2021-06-23] MEDS: Dexamethasone 4 mg/ml Vial SLOW IVP SCH (09:12)
[2021-06-23] MEDS: levETIRAcetam 500 mg/5 ml Oral Solution PO SCH ×2 (09:12→20:36)
[2021-06-23] MEDS: Colchicine 0.3 MG TAB PO SCH ×2 (09:12→20:31)
[2021-06-23] MEDS: Sacubitril 49 MG/Valsartan 51 MG TABLET PO SCH ×2 (09:14→20:35)
[2021-06-23] MEDS: Zinc Sulfate 220 MG CAP PO SCH (15:02)
[2021-06-23] MEDS: DULoxetine 60 MG CAP PO SCH (20:34)
[2021-06-24] MEDS: Albuterol 200 PUFF (6.7GM INHALER) INH SCH ×6 (03:26→23:10)
[2021-06-24] MEDS: Dextrose 5 %-0.45 % NaCl 1,000 ML IV SCH (04:09)
[2021-06-24] MEDS: Acetaminophen 325 MG TAB PO SCH ×5 (06:38→21:29)
[2021-06-24] MEDS: Levothyroxine Sodium 125 MCG TAB PO SCH (06:39)
[2021-06-24] MEDS: Dexamethasone 4 mg/ml Vial SLOW IVP SCH (08:37)
[2021-06-24] MEDS: Spironolactone 25 MG TAB PO SCH (08:41)
[2021-06-24] MEDS: Aspirin 81 mg Enteric Coated Tablet PO SCH (08:41)
[2021-06-24] MEDS: Potassium Chloride 20 MEQ TAB PO SCH ×2 (08:41→16:47)
[2021-06-24] MEDS: Carvedilol 3.125 MG TAB PO SCH ×2 (08:41→16:47)
[2021-06-24] MEDS: busPIRone HCl 5 MG TAB PO SCH ×2 (08:41→21:30)
[2021-06-24] MEDS: Apixaban 5 MG TAB PO SCH ×2 (08:41→21:30)
[2021-06-24] MEDS: levETIRAcetam 500 mg/5 ml Oral Solution PO SCH ×2 (08:42→21:29)
[2021-06-24] MEDS: Diclofenac 1% 100 GM GEL TP SCH ×3 (08:42→21:34)
[2021-06-24] MEDS: Colchicine 0.3 MG TAB PO SCH ×2 (08:42→21:30)
[2021-06-24] MEDS: Sacubitril 49 MG/Valsartan 51 MG TABLET PO SCH ×2 (08:43→21:30)
[2021-06-24] MEDS: Pramipexole Di-HCl 1 MG TAB PO SCH ×3 (08:43→21:29)
[2021-06-24] MEDS: Zinc Sulfate 220 MG CAP PO SCH (14:37)
[2021-06-24 14:59] VITALS: BMI 42.0
[2021-06-24] MEDS ORDERED: Furosemide 40 MG/4 ML VIAL SLOW IVP SCH (16:45)
[2021-06-24] MEDS: Lorazepam 0.5 MG TAB PO PRN (16:47)
[2021-06-24] MEDS: DULoxetine 60 MG CAP PO SCH (21:30)
[2021-06-25] MEDS: Lorazepam 0.5 MG TAB PO PRN (01:55)
[2021-06-25] MEDS: Albuterol 200 PUFF (6.7GM INHALER) INH SCH ×4 (03:10→15:28)
[2021-06-25 05:41] LABS: Hemoglobin 12.7 g/dL (12.0-16.0); Mean Corpuscular HGB CONC 31.3 g/dL (32.0-36.0); Mean Corpuscular Hemoglobin 32.5 pg (27.0-31.0); Mean Platelet Volume 8.6 fL (7.4-10.4); Platelet Count 175 thou/uL (130-400); RBC Distribution Width 11.9 % (11.5-14.5); White Blood Cell (WBC) Count 7.8 thou/uL (4.8-10.8)
[2021-06-25 06:01] LABS: Lymphocytes 36 % (21-51); MDiff Complete? YES; Macrocytosis SLIGHT = 6-15 cells (100X) (0-5/hpf); Monocytes 10 % (0-10); Neutrophil 51 % (42-75); Platelet Morphology Comment Appears Adequate; Reactive Lymphocytes 3 % (0-10)
[2021-06-25] MEDS: Levothyroxine Sodium 125 MCG TAB PO SCH (06:02)
[2021-06-25] MEDS: Acetaminophen 325 MG TAB PO SCH ×3 (06:02→15:28)
[2021-06-25 06:11] LABS: Anion Gap 14 mmol/L (10-20); BUN (Urea Nitrogen) 17 mg/dL (9.8-20.1); Calc. Creatinine Clearance 82 mL/min (70-130); Calcium 8.7 mg/dL (7.8-10.44); Carbon Dioxide 30 mmol/L (23-31); Chloride 101 mmol/L (98-107); Glucose 97 mg/dL (83-110); Potassium 5.2 mmol/L (3.5-5.1); Sodium 140 mmol/L (136-145)
[2021-06-25] MEDS ORDERED: Furosemide 40 MG TAB PO SCH (07:30)
[2021-06-25] MEDS: Pramipexole Di-HCl 1 MG TAB PO SCH ×2 (09:12→15:29)
[2021-06-25] MEDS: Aspirin 81 mg Enteric Coated Tablet PO SCH (09:12)
[2021-06-25] MEDS: levETIRAcetam 500 mg/5 ml Oral Solution PO SCH (09:12)
[2021-06-25] MEDS: Carvedilol 3.125 MG TAB PO SCH (09:13)
[2021-06-25] MEDS: Sacubitril 49 MG/Valsartan 51 MG TABLET PO SCH (09:14)
[2021-06-25] MEDS: busPIRone HCl 5 MG TAB PO SCH (09:14)
[2021-06-25] MEDS: Apixaban 5 MG TAB PO SCH (09:14)
[2021-06-25] MEDS: Spironolactone 25 MG TAB PO SCH (09:14)
[2021-06-25] MEDS: Potassium Chloride 20 MEQ TAB PO SCH (10:15)
[2021-06-25] MEDS: Colchicine 0.3 MG TAB PO SCH (10:44)
[2021-06-25] MEDS: Diclofenac 1% 100 GM GEL TP SCH ×2 (10:45→15:29)
[2021-06-25 15:27] VITALS: BP 131/92; TEMP 98.3
== END 2021-06-25 16:49 | disposition swing bed (61) | DRG 177 ==
LOC: ERS 09:42 → 2NO 13:24 → 2SW 06-14 09:14 → OBSVTOIN 06-16 10:43
PROVIDERS: ADMIT Specialist; ATTEND Internal Medicine
PROC: XW033E5 Introduction of Remdesivir Anti-infective into Peripheral Vein, Percutaneous Approach, New Technology Group 5 (ICD-10-PCS; 2021-06-14)
PROC: 8E0ZXY6 Isolation (ICD-10-PCS; principal; 2021-06-16)
DX: U07.1 COVID-19 (principal); J12.82 Pneumonia due to coronavirus disease 2019; J96.21 Acute and chronic respiratory failure with hypoxia; J15.9 Unspecified bacterial pneumonia; I50.43 Acute on chronic combined systolic (congestive) and diastolic (congestive) heart failure; I13.0 Hypertensive heart and chronic kidney disease with heart failure and stage 1 through stage 4 chronic kidney disease, or unspecified chronic kidney disease; Z68.41 Body mass index [BMI] 40.0-44.9, adult; R44.3 Hallucinations, unspecified; J44.0 Chronic obstructive pulmonary disease with (acute) lower respiratory infection; G93.40 Encephalopathy, unspecified; I16.9 Hypertensive crisis, unspecified; I51.81 Takotsubo syndrome; N17.9 Acute kidney failure, unspecified; K21.9 Gastro-esophageal reflux disease without esophagitis; E03.9 Hypothyroidism, unspecified; F32.A Depression, unspecified; G89.29 Other chronic pain; I27.20 Pulmonary hypertension, unspecified; E78.5 Hyperlipidemia, unspecified; M06.9 Rheumatoid arthritis, unspecified; N18.9 Chronic kidney disease, unspecified; I25.10 Atherosclerotic heart disease of native coronary artery without angina pectoris; E73.9 Lactose intolerance, unspecified; G25.81 Restless legs syndrome; F41.9 Anxiety disorder, unspecified; E66.01 Morbid (severe) obesity due to excess calories; G24.01 Drug induced subacute dyskinesia; T45.0X5A Adverse effect of antiallergic and antiemetic drugs, initial encounter; G43.909 Migraine, unspecified, not intractable, without status migrainosus; I48.0 Paroxysmal atrial fibrillation; I07.1 Rheumatic tricuspid insufficiency; G40.909 Epilepsy, unspecified, not intractable, without status epilepticus; Z90.49 Acquired absence of other specified parts of digestive tract; Z90.09 Acquired absence of other part of head and neck; Z88.1 Allergy status to other antibiotic agents; Z88.8 Allergy status to other drugs, medicaments and biological substances; Z88.0 Allergy status to penicillin; Z88.5 Allergy status to narcotic agent; Z86.73 Personal history of transient ischemic attack (TIA), and cerebral infarction without residual deficits; Z79.51 Long term (current) use of inhaled steroids; Z79.01 Long term (current) use of anticoagulants; Z79.82 Long term (current) use of aspirin; Z79.890 Hormone replacement therapy; Z79.899 Other long term (current) drug therapy; Z87.440 Personal history of urinary (tract) infections
CPT/HCPCS: 36415; 36600; 70450; 71045; 71250; 80048; 80053; 80076; 81001; 82805; 83036; 83880; 84443; 84484; 85007; 85025; 85027; 85379; 85610; 85652; 86140; 87086; 93306; 94640; 96374; 96375; 96376; G0378; J0248; J0360; J1100; J1200; J1940; J2060; J2185; J2765; J3480; J3490; J7042; J7050; J7620; J7626; P9047; U0003; U0005

== ENCOUNTER 2022-01-28 12:54 | Inpatient (IN) | payer MEDICARE, MEDICAID ==
[2022-01-28 14:13] LABS: #Basophils 0.1 thou/uL (0.0-0.2); #Eosinphils 0.3 thou/uL (0.0-0.7); #Lymphocytes 1.5 thou/uL (1.20-3.40); #Monocytes 0.2 thou/uL (0.11-0.59); #Neutrophils 2.8 thou/uL (1.40-6.50); %Basophils 2.5 % (0.0-1.0); %Eosinophils 6.3 % (0.0-10.0); %Lymphocytes 29.8 % (21.0-51.0); %Monocytes 4.9 % (0.0-10.0); %Neutrophils 56.6 % (42.0-75.0); Hemoglobin 8.9 g/dL (12.0-16.0); Mean Corpuscular HGB CONC 32.1 g/dL (32.0-36.0); Mean Corpuscular Hemoglobin 35.7 pg (27.0-31.0); RBC Distribution Width 14.3 % (11.5-14.5); White Blood Cell (WBC) Count 4.9 thou/uL (4.8-10.8)
[2022-01-28 14:26] LABS: MDiff Complete? YES; Macrocytosis MODERATE=16-30 cells (100X) (0-5/hpf); Mean Platelet Volume 10.2 fL (7.4-10.4); Ovalocytes SLIGHT = 2-5 cells (100X) (0-1/hpf); Platelet Count 79 thou/uL (130-400); Platelet Morphology Comment Appears Decreased; Polychromasia SLIGHT = 2-3 cells (100X) (0-2/hpf)
[2022-01-28 14:32] LABS: ALT (SGPT) Less than 7 U/L (8-55); AST (SGOT) 13 U/L (5-34); Albumin 3.3 g/dL (3.4-4.8); Alkaline Phosphatase 55 U/L (40-110); Anion Gap 12 mmol/L (10-20); BUN (Urea Nitrogen) 39 mg/dL (9.8-20.1); Bilirubin, Total 0.3 mg/dL (0.2-1.2); CK (CPK) 31 U/L (29-168); Calc. Creatinine Clearance 0 mL/min (70-130); Calcium 8.9 mg/dL (7.8-10.44); Carbon Dioxide 26 mmol/L (23-31); Chloride 103 mmol/L (98-107); Estimated GFR 51; Glucose 102 mg/dL (83-110); Magnesium 1.5 mg/dL (1.6-2.6); Potassium 5.1 mmol/L (3.5-5.1); Protein, Total 6.3 g/dL (5.8-8.1); Sodium 136 mmol/L (136-145)
[2022-01-28 15:16] LABS: SARS-CoV-2 NAA Rapid Test Not Detected (NotDetected)
[2022-01-28] MEDS ORDERED: Magnesium 2 GM/50 ML BAG (IN WATER) ONE (16:15)
[2022-01-28] MEDS ORDERED: Enoxaparin Sodium 80 MG/0.8 ML SYRINGE ONE (17:55)
[2022-01-28] MEDS ORDERED: Ondansetron ODT 4 MG TAB SL PRN (20:30)
[2022-01-28] MEDS ORDERED: Acetaminophen 325 MG TAB PO PRN (20:30)
[2022-01-28] MEDS ORDERED: Ondansetron PF 4 MG/2 ML Vial IVP PRN ×2 (20:30→20:35)
[2022-01-28] MEDS ORDERED: Magnesium 2 GM/50 ML(in water) 2 GM in Premix Bag 1 BAG IVPB SCH (20:45)
[2022-01-28] MEDS: Sodium Chloride 0.9% 1,000 ML IV SCH (22:12)
[2022-01-28] MEDS: levETIRAcetam 500 MG TAB PO SCH (22:18)
[2022-01-28] MEDS: Sacubitril 49 MG/Valsartan 51 MG TABLET PO SCH (22:18)
[2022-01-28] MEDS: Pramipexole Di-HCl 1 MG TAB PO SCH (22:18)
[2022-01-28] MEDS: DULoxetine 60 MG CAP PO SCH (22:18)
[2022-01-28 22:59] VITALS: BMI 37.5
[2022-01-29] MEDS: Levothyroxine Sodium 100 MCG TAB PO SCH (05:32)
[2022-01-29 06:28] LABS: #Basophils 0.1 thou/uL (0.0-0.2); #Eosinphils 0.4 thou/uL (0.0-0.7); #Lymphocytes 1.3 thou/uL (1.20-3.40); #Monocytes 0.2 thou/uL (0.11-0.59); #Neutrophils 2.5 thou/uL (1.40-6.50); %Basophils 1.8 % (0.0-1.0); %Eosinophils 9.4 % (0.0-10.0); %Lymphocytes 28.3 % (21.0-51.0); %Monocytes 3.5 % (0.0-10.0); %Neutrophils 57.2 % (42.0-75.0); Hemoglobin 8.7 g/dL (12.0-16.0); Mean Corpuscular HGB CONC 31.4 g/dL (32.0-36.0); Mean Corpuscular Hemoglobin 35.3 pg (27.0-31.0); Platelet Count 73 thou/uL (130-400); RBC Distribution Width 14.3 % (11.5-14.5); Red Blood Cell (RBC) Count 2.46 mill/uL (4.20-5.40); White Blood Cell (WBC) Count 4.5 thou/uL (4.8-10.8)
[2022-01-29] MEDS ORDERED: Budesonide 0.5 MG/2 ML NEB NEB SCH (06:30)
[2022-01-29 06:44] LABS: Anion Gap 12 mmol/L (10-20); BUN (Urea Nitrogen) 29 mg/dL (9.8-20.1); Calc. Creatinine Clearance 66 mL/min (70-130); Carbon Dioxide 25 mmol/L (23-31); Chloride 106 mmol/L (98-107); Estimated GFR 71; Glucose 100 mg/dL (83-110); Magnesium 2.7 mg/dL (1.6-2.6); Potassium 4.7 mmol/L (3.5-5.1); Sodium 138 mmol/L (136-145)
[2022-01-29] MEDS: Furosemide 40 MG TAB PO SCH (08:52)
[2022-01-29] MEDS: Aspirin 81 mg Enteric Coated Tablet PO SCH (08:52)
[2022-01-29] MEDS: Sacubitril 49 MG/Valsartan 51 MG TABLET PO SCH (08:52)
[2022-01-29] MEDS: Pramipexole Di-HCl 1 MG TAB PO SCH ×3 (08:52→20:52)
[2022-01-29] MEDS: levETIRAcetam 500 MG TAB PO SCH ×2 (08:52→20:52)
[2022-01-29] MEDS: Enoxaparin Sodium 80 MG/0.8 ML SYRINGE SC SCH ×2 (08:53→20:51)
[2022-01-29] MEDS: Sodium Chloride 0.9% 1,000 ML IV SCH ×2 (08:54→13:43)
[2022-01-29] MEDS: Folic Acid 1 MG TAB PO SCH (08:56)
[2022-01-29] MEDS: Polyethylene Glycol 3350 17 GM Packet PO SCH (08:57)
[2022-01-29 10:46] LABS: INR-International Normal Ratio 1.1; PTT 30.4 sec (22.9-36.1); Prothrombin Time 14.2 sec (12.0-14.7)
[2022-01-29 10:54] LABS: Iron 85 ug/dL (50-170); Iron 87 ug/dL (50-170); Iron Binding Capacity, Total 230 mcg/dL (265-497); Iron Binding Capacity, Total 233 mcg/dL (265-497)
[2022-01-29] MEDS: Budesonide 0.5 MG/2 ML NEB NEB SCH (17:48)
[2022-01-29] MEDS ORDERED: cloNIDine 0.1 MG TAB PO PRN (18:55)
[2022-01-29] MEDS: DULoxetine 60 MG CAP PO SCH (20:52)
[2022-01-30] MEDS: Sacubitril 49 MG/Valsartan 51 MG TABLET PO SCH ×3 (03:49→21:51)
[2022-01-30 04:38] LABS: Reticulocyte Count 1.3 % (0.5-1.5)
[2022-01-30] MEDS: Levothyroxine Sodium 100 MCG TAB PO SCH (05:00)
[2022-01-30] MEDS: Acetaminophen 325 MG TAB PO PRN ×2 (05:01→13:30)
[2022-01-30] MEDS: Sodium Chloride 0.9% 1,000 ML IV SCH (05:04)
[2022-01-30 05:08] LABS: INR-International Normal Ratio 1.1; PTT 43.7 sec (22.9-36.1); Prothrombin Time 13.9 sec (12.0-14.7)
[2022-01-30] MEDS: Budesonide 0.5 MG/2 ML NEB NEB SCH ×2 (07:08→18:23)
[2022-01-30 07:49] LABS: #Eosinphils 0.3 thou/uL (0.0-0.7); #Lymphocytes 1.5 thou/uL (1.20-3.40); #Monocytes 0.1 thou/uL (0.11-0.59); #Neutrophils 1.7 thou/uL (1.40-6.50); %Basophils 0.8 % (0.0-1.0); %Lymphocytes 40.7 % (21.0-51.0); %Monocytes 3.1 % (0.0-10.0); %Neutrophils 46.3 % (42.0-75.0); Hemoglobin 8.1 g/dL (12.0-16.0); Mean Corpuscular HGB CONC 32.3 g/dL (32.0-36.0); Mean Platelet Volume 9.2 fL (7.4-10.4); Platelet Count 82 thou/uL (130-400); Red Blood Cell (RBC) Count 2.24 mill/uL (4.20-5.40); White Blood Cell (WBC) Count 3.5 thou/uL (4.8-10.8)
[2022-01-30 07:53] LABS: Anion Gap 11 mmol/L (10-20); BUN (Urea Nitrogen) 20 mg/dL (9.8-20.1); Calc. Creatinine Clearance 70 mL/min (70-130); Calcium 8.7 mg/dL (7.8-10.44); Carbon Dioxide 25 mmol/L (23-31); Chloride 105 mmol/L (98-107); Estimated GFR 77; Glucose 87 mg/dL (83-110); Potassium 4.5 mmol/L (3.5-5.1); Sodium 136 mmol/L (136-145)
[2022-01-30 08:15] LABS: MDiff Complete? YES; Macrocytosis SLIGHT = 6-15 cells (100X) (0-5/hpf); Platelet Morphology Comment Appears Decreased; Polychromasia SLIGHT = 2-3 cells (100X) (0-2/hpf); Tear Drops SLIGHT = 2-5 cells (100X) (0-1/hpf)
[2022-01-30] MEDS: Pramipexole Di-HCl 1 MG TAB PO SCH ×3 (09:19→21:42)
[2022-01-30] MEDS: Folic Acid 1 MG TAB PO SCH (09:19)
[2022-01-30] MEDS: levETIRAcetam 500 MG TAB PO SCH ×2 (09:19→21:42)
[2022-01-30] MEDS: Aspirin 81 mg Enteric Coated Tablet PO SCH (09:19)
[2022-01-30] MEDS: Furosemide 40 MG TAB PO SCH (09:19)
[2022-01-30] MEDS: Polyethylene Glycol 3350 17 GM Packet PO SCH (09:20)
[2022-01-30] MEDS: Enoxaparin Sodium 80 MG/0.8 ML SYRINGE SC SCH ×2 (09:21→22:04)
[2022-01-30 13:47] LABS: Cardiolipin IgA Ab 1.3 APL-U/mL (<14 Negative); EliA APS New Method **** NEW METHOD ****
[2022-01-30 13:48] LABS: Cardiolipin IgM Ab Less than 0.8 MPL-U/mL (<10 Negative); beta-2-Glycoprotein I IgA Ab 1.3 U/mL (<7 Negative); beta-2-Glycoprotein I IgG Ab 1.2 U/mL (<7 Negative); beta-2-Glycoprotein I IgM Abs Less than 2.9 U/mL (<7 Negative)
[2022-01-30] MEDS ORDERED: Furosemide 20 MG/2 ML VIAL SLOW IVP SCH (14:00)
[2022-01-30] MEDS: DULoxetine 60 MG CAP PO SCH (21:42)
[2022-01-30] MEDS: Lorazepam 0.5 MG TAB PO PRN (21:55)
[2022-01-31] MEDS: Nystatin Powder 15 GM BOT TOP PRN ×2 (03:45→21:10)
[2022-01-31] MEDS: Levothyroxine Sodium 100 MCG TAB PO SCH (05:09)
[2022-01-31] MEDS: Budesonide 0.5 MG/2 ML NEB NEB SCH ×2 (07:06→18:41)
[2022-01-31] MEDS: Enoxaparin Sodium 80 MG/0.8 ML SYRINGE SC SCH ×2 (08:53→21:06)
[2022-01-31] MEDS: Folic Acid 1 MG TAB PO SCH (08:53)
[2022-01-31] MEDS: Sacubitril 49 MG/Valsartan 51 MG TABLET PO SCH ×2 (08:53→21:06)
[2022-01-31] MEDS: Pramipexole Di-HCl 1 MG TAB PO SCH ×3 (08:53→21:05)
[2022-01-31] MEDS: Polyethylene Glycol 3350 17 GM Packet PO SCH (08:53)
[2022-01-31] MEDS: Furosemide 40 MG TAB PO SCH (08:53)
[2022-01-31] MEDS: Acetaminophen 325 MG TAB PO PRN ×2 (08:54→21:05)
[2022-01-31] MEDS: levETIRAcetam 500 MG TAB PO SCH ×2 (08:54→21:06)
[2022-01-31] MEDS: Aspirin 81 mg Enteric Coated Tablet PO SCH (08:54)
[2022-01-31 14:05] LABS: #Basophils 0.1 thou/uL (0.0-0.2); #Eosinphils 0.2 thou/uL (0.0-0.7); #Monocytes 0.2 thou/uL (0.11-0.59); #Neutrophils 2.1 thou/uL (1.40-6.50); %Basophils 1.7 % (0.0-1.0); %Eosinophils 5.1 % (0.0-10.0); %Lymphocytes 43.3 % (21.0-51.0); %Monocytes 4.6 % (0.0-10.0); %Neutrophils 45.3 % (42.0-75.0); Hemoglobin 8.6 g/dL (12.0-16.0); Mean Corpuscular HGB CONC 32.2 g/dL (32.0-36.0); Mean Corpuscular Hemoglobin 35.8 pg (27.0-31.0); Mean Platelet Volume 9.6 fL (7.4-10.4); Platelet Count 79 thou/uL (130-400); Red Blood Cell (RBC) Count 2.39 mill/uL (4.20-5.40); White Blood Cell (WBC) Count 4.5 thou/uL (4.8-10.8)
[2022-01-31] MEDS: DULoxetine 60 MG CAP PO SCH (21:05)
[2022-01-31] MEDS: Lorazepam 0.5 MG TAB PO PRN (21:05)
[2022-02-01 05:01] LABS: Anion Gap 12 mmol/L (10-20); BUN (Urea Nitrogen) 24 mg/dL (9.8-20.1); Calc. Creatinine Clearance 59 mL/min (70-130); Calcium 8.9 mg/dL (7.8-10.44); Carbon Dioxide 30 mmol/L (23-31); Chloride 101 mmol/L (98-107); Estimated GFR 64; Glucose 90 mg/dL (83-110); Potassium 4.1 mmol/L (3.5-5.1); Sodium 139 mmol/L (136-145)
[2022-02-01 05:24] LABS: Hemoglobin 8.7 g/dL (12.0-16.0); Mean Corpuscular HGB CONC 31.7 g/dL (32.0-36.0); Mean Corpuscular Hemoglobin 35.3 pg (27.0-31.0); Mean Platelet Volume 10.1 fL (7.4-10.4); Platelet Count 73 thou/uL (130-400); Red Blood Cell (RBC) Count 2.46 mill/uL (4.20-5.40); White Blood Cell (WBC) Count 4.5 thou/uL (4.8-10.8)
[2022-02-01 05:25] LABS: Lymphocytes 26 % (21-51); MDiff Complete? YES; Macrocytosis SLIGHT = 6-15 cells (100X) (0-5/hpf); Monocytes 10 % (0-10); Neutrophil 64 % (42-75); Platelet Morphology Comment Appears Decreased
[2022-02-01] MEDS: Levothyroxine Sodium 100 MCG TAB PO SCH (05:25)
[2022-02-01] MEDS: Budesonide 0.5 MG/2 ML NEB NEB SCH (07:22)
[2022-02-01] MEDS: Aspirin 81 mg Enteric Coated Tablet PO SCH (09:02)
[2022-02-01] MEDS: Furosemide 40 MG TAB PO SCH (09:03)
[2022-02-01] MEDS: Folic Acid 1 MG TAB PO SCH (09:03)
[2022-02-01] MEDS: levETIRAcetam 500 MG TAB PO SCH (09:04)
[2022-02-01] MEDS: Sacubitril 49 MG/Valsartan 51 MG TABLET PO SCH (09:04)
[2022-02-01] MEDS: Polyethylene Glycol 3350 17 GM Packet PO SCH (09:04)
[2022-02-01] MEDS: Pramipexole Di-HCl 1 MG TAB PO SCH (09:04)
[2022-02-01] MEDS: Enoxaparin Sodium 80 MG/0.8 ML SYRINGE SC SCH (09:11)
[2022-02-01] MEDS ORDERED: Triamcinolone 0.1% Dental Paste 5 GM TUBE TOP PRN (09:48)
[2022-02-01 11:59] VITALS: BP 120/65; TEMP 98.2
[2022-02-01 15:36] LABS: DRVVT Confirm 34.6; HEX PHOS LA Tube 1 37.9 SEC; HEX PHOS LA Tube 2 33.2 SEC; Hexagonal Phospholipid Neut 4.6 SEC (0-8.0)
== END 2022-02-01 14:40 | disposition home health service (06) | DRG 175 ==
LOC: ERS 12:54 → 2NO 18:58
PROVIDERS: ADMIT Specialist; ATTEND Family Medicine
DX: I26.93 Single subsegmental thrombotic pulmonary embolism without acute cor pulmonale (principal); I50.33 Acute on chronic diastolic (congestive) heart failure; I48.20 Chronic atrial fibrillation, unspecified; D61.818 Other pancytopenia; J96.11 Chronic respiratory failure with hypoxia; K44.9 Diaphragmatic hernia without obstruction or gangrene; Z86.73 Personal history of transient ischemic attack (TIA), and cerebral infarction without residual deficits; M06.9 Rheumatoid arthritis, unspecified; E78.5 Hyperlipidemia, unspecified; G25.81 Restless legs syndrome; Z20.822 Contact with and (suspected) exposure to COVID-19; E03.9 Hypothyroidism, unspecified; K21.9 Gastro-esophageal reflux disease without esophagitis; N28.1 Cyst of kidney, acquired; Z79.890 Hormone replacement therapy; Z79.899 Other long term (current) drug therapy; G40.909 Epilepsy, unspecified, not intractable, without status epilepticus; Z99.81 Dependence on supplemental oxygen; I27.20 Pulmonary hypertension, unspecified; Z88.1 Allergy status to other antibiotic agents; Z88.5 Allergy status to narcotic agent; Z88.0 Allergy status to penicillin; Z88.8 Allergy status to other drugs, medicaments and biological substances; Z79.01 Long term (current) use of anticoagulants; Z79.82 Long term (current) use of aspirin; D69.6 Thrombocytopenia, unspecified; D53.9 Nutritional anemia, unspecified
CPT/HCPCS: 36415; 71045; 71275; 76700; 80048; 80053; 82274; 82550; 82607; 83010; 83540; 83550; 83605; 83615; 83735; 83880; 84439; 84443; 84484; 85025; 85046; 85060; 85240; 85250; 85379; 85598; 85610; 85613; 85730; 86146; 86147; 86850; 86900; 86901; 87040; 93005; 93010; 94640; 96361; 96372; 96374; J1650; J1940; J3475; J7050; J7626; Q9967

== ENCOUNTER 2022-06-03 14:51 | Inpatient (IN) | payer OTHER, MEDICAID ==
[2022-06-03 23:43] VITALS: BMI 38.0
[2022-06-03] MEDS ORDERED: Acetaminophen 650 MG Suppository PR PRN (23:44)
[2022-06-03] MEDS ORDERED: Ondansetron PF 4 MG/2 ML Vial IVP PRN (23:44)
[2022-06-03] MEDS ORDERED: Acetaminophen 325 MG TAB PO PRN (23:44)
[2022-06-03] MEDS ORDERED: Ondansetron ODT 4 MG TAB PO PRN (23:44)
[2022-06-04] MEDS ORDERED: Lorazepam 2 MG/ML VIAL SLOW IVP SCH (01:25)
[2022-06-04 10:05] LABS: Anion Gap 14 mmol/L (10-20); BUN (Urea Nitrogen) 17 mg/dL (9.8-20.1); Calc. Creatinine Clearance 66 mL/min (70-130); Calcium 8.5 mg/dL (7.8-10.44); Carbon Dioxide 24 mmol/L (23-31); Chloride 107 mmol/L (98-107); Estimated GFR 72; Glucose 81 mg/dL (83-110); Potassium 3.6 mmol/L (3.5-5.1); Sodium 141 mmol/L (136-145)
[2022-06-04 11:35] LABS: Hemoglobin 7.7 g/dL (12.0-16.0); Mean Corpuscular HGB CONC 32.9 g/dL (32.0-36.0); Mean Corpuscular Hemoglobin 32.1 pg (27.0-31.0); Mean Corpuscular Volume 97.7 fl (78.0-98.0); Mean Platelet Volume 12.2 fL (7.4-10.4); Platelet Count 20 10x3/uL (130-400); RBC Distribution Width 16.4 % (11.5-14.5); Red Blood Cell (RBC) Count 2.39 mill/uL (4.20-5.40)
[2022-06-04 11:38] LABS: Band 9 % (5-11); Eosinophils 4 % (0-10); Hypochromia SLIGHT = 6-15 cells (100X) (0-5/hpf); Lymphocytes 33 % (21-51); MDiff Complete? YES; Metamyelocyte 1 % (0-0); Monocytes 19 % (0-10); Neutrophil 32 % (42-75); Polychromasia MODERATE = 3-4 cells (100X) (0-2/hpf); Reflex for Review?? NO
[2022-06-04 13:44] LABS: Band 1 % (5-11); Eosinophils 3 % (0-10); Hemoglobin 7.6 g/dL (12.0-16.0); Lymphocytes 33 % (21-51); MDiff Complete? YES; Mean Corpuscular HGB CONC 33.8 g/dL (32.0-36.0); Mean Corpuscular Hemoglobin 32.6 pg (27.0-31.0); Mean Corpuscular Volume 96.7 fl (78.0-98.0); Mean Platelet Volume 12.3 fL (7.4-10.4); Monocytes 30 % (0-10); Neutrophil 33 % (42-75); Ovalocytes SLIGHT = 2-5 cells (100X) (0-1/hpf); Platelet Count 20 10x3/uL (130-400); Platelet Morphology Comment Appears Decreased; Polychromasia SLIGHT = 2-3 cells (100X) (0-2/hpf); RBC Distribution Width 16.1 % (11.5-14.5); Red Blood Cell (RBC) Count 2.33 mill/uL (4.20-5.40); White Blood Cell (WBC) Count 5.1 10x3/uL (4.8-10.8)
[2022-06-04] MEDS ORDERED: Dextrose 5 % And 0.9 % NaCl 1,000 ML IV SCH (17:15)
[2022-06-04] MEDS: Lorazepam 2 MG/ML VIAL SLOW IVP SCH (22:02)
[2022-06-04] MEDS: busPIRone HCl 5 MG TAB PO SCH (22:31)
[2022-06-04] MEDS: DULoxetine 60 MG CAP PO SCH (22:31)
[2022-06-04] MEDS: Lorazepam 0.5 MG TAB PO SCH (22:32)
[2022-06-04] MEDS: levETIRAcetam 500 MG TAB PO SCH (22:32)
[2022-06-04] MEDS: Sacubitril 49 MG/Valsartan 51 MG TABLET PO SCH (22:33)
[2022-06-04] MEDS: Pramipexole Di-HCl 1 MG TAB PO SCH (22:33)
[2022-06-05 04:59] LABS: Band 4 % (5-11); Eosinophils 3 % (0-10); Hemoglobin 7.8 g/dL (12.0-16.0); Lymphocytes 35 % (21-51); MDiff Complete? YES; Mean Corpuscular HGB CONC 33.5 g/dL (32.0-36.0); Mean Corpuscular Hemoglobin 32.4 pg (27.0-31.0); Mean Corpuscular Volume 96.7 fl (78.0-98.0); Mean Platelet Volume 13.8 fL (7.4-10.4); Metamyelocyte 1 % (0-0); Monocytes 21 % (0-10); Myelocyte 1 % (0-0); Neutrophil 35 % (42-75); Platelet Count 17 10x3/uL (130-400); Platelet Morphology Comment Appears Decreased; RBC Distribution Width 16.4 % (11.5-14.5); Red Blood Cell (RBC) Count 2.42 mill/uL (4.20-5.40); White Blood Cell (WBC) Count 5.1 10x3/uL (4.8-10.8)
[2022-06-05] MEDS ORDERED: Furosemide 40 MG/4 ML VIAL SLOW IVP SCH (05:15)
[2022-06-05] MEDS: Levothyroxine Sodium 125 MCG TAB PO SCH (05:22)
[2022-06-05] MEDS ORDERED: FLU VACC QS2022-23(65YR UP)/PF 240 MCG/0.7 ML SYRINGE IM ONE (09:00)
[2022-06-05] MEDS ORDERED: Lorazepam 2 MG/ML VIAL SLOW IVP PRN (10:08)
[2022-06-05] MEDS: busPIRone HCl 5 MG TAB PO SCH ×2 (11:32→22:41)
[2022-06-05] MEDS: Folic Acid 1 MG TAB PO SCH (11:33)
[2022-06-05] MEDS: Pramipexole Di-HCl 1 MG TAB PO SCH ×3 (11:33→22:43)
[2022-06-05] MEDS: levETIRAcetam 500 MG TAB PO SCH ×2 (11:33→22:42)
[2022-06-05] MEDS: Sacubitril 49 MG/Valsartan 51 MG TABLET PO SCH ×2 (11:34→22:43)
[2022-06-05] MEDS: Lorazepam 2 MG/ML VIAL SLOW IVP PRN (11:42)
[2022-06-05] MEDS: Lorazepam 2 MG/ML VIAL SLOW IVP SCH (21:00)
[2022-06-05] MEDS: DULoxetine 60 MG CAP PO SCH (22:42)
[2022-06-05] MEDS: Lorazepam 0.5 MG TAB PO SCH (22:42)
[2022-06-06] MEDS: Lorazepam 2 MG/ML VIAL SLOW IVP PRN (00:48)
[2022-06-06] MEDS: Levothyroxine Sodium 125 MCG TAB PO SCH (05:23)
[2022-06-06 09:12] LABS: Hemoglobin 7.7 g/dL (12.0-16.0); Mean Corpuscular HGB CONC 34.3 g/dL (32.0-36.0); Mean Corpuscular Hemoglobin 33.6 pg (27.0-31.0); Mean Corpuscular Volume 97.8 fl (78.0-98.0); Mean Platelet Volume 12.3 fL (7.4-10.4); Platelet Count 30 10x3/uL (130-400); RBC Distribution Width 17.1 % (11.5-14.5); Red Blood Cell (RBC) Count 2.31 mill/uL (4.20-5.40); White Blood Cell (WBC) Count 6.7 10x3/uL (4.8-10.8)
[2022-06-06] MEDS: Folic Acid 1 MG TAB PO SCH (10:33)
[2022-06-06] MEDS: Sacubitril 49 MG/Valsartan 51 MG TABLET PO SCH ×2 (10:33→20:56)
[2022-06-06] MEDS: levETIRAcetam 500 MG TAB PO SCH ×2 (10:33→20:54)
[2022-06-06] MEDS: busPIRone HCl 5 MG TAB PO SCH ×2 (10:33→20:54)
[2022-06-06] MEDS: Pramipexole Di-HCl 1 MG TAB PO SCH ×3 (10:33→20:55)
[2022-06-06 10:58] LABS: Band 11 % (5-11); Eosinophils 6 % (0-10); Lymphocytes 27 % (21-51); MDiff Complete? YES; Metamyelocyte 2 % (0-0); Monocytes 35 % (0-10); Myelocyte 4 % (0-0); Neutrophil 13 % (42-75); Platelet Morphology Comment Appears Decreased; Polychromasia SLIGHT = 2-3 cells (100X) (0-2/hpf); Reactive Lymphocytes 2 % (0-10)
[2022-06-06] MEDS: D5W-AA 4.25% with LYTES 1,000 ML IV SCH (17:41)
[2022-06-06] MEDS: DULoxetine 60 MG CAP PO SCH (20:54)
[2022-06-06] MEDS: Lorazepam 0.5 MG TAB PO SCH (20:55)
[2022-06-06] MEDS: Lorazepam 2 MG/ML VIAL SLOW IVP SCH (22:46)
[2022-06-07 05:03] LABS: Anisocytosis SLIGHT = 6-15 cells (100X) (0-5/hpf); Band 3 % (5-11); Eosinophils 2 % (0-10); Lymphocytes 36 % (21-51); MDiff Complete? YES; Mean Corpuscular HGB CONC 34.5 g/dL (32.0-36.0); Mean Corpuscular Volume 95.7 fl (78.0-98.0); Mean Platelet Volume 10.9 fL (7.4-10.4); Metamyelocyte 1 % (0-0); Monocytes 30 % (0-10); Myelocyte 6 % (0-0); Neutrophil 22 % (42-75); Nucleated RBC 2 % (0); Platelet Count 51 10x3/uL (130-400); Platelet Morphology Comment Appears Decreased; RBC Distribution Width 17.1 % (11.5-14.5); Red Blood Cell (RBC) Count 2.43 mill/uL (4.20-5.40); White Blood Cell (WBC) Count 8.2 10x3/uL (4.8-10.8)
[2022-06-07] MEDS: Levothyroxine Sodium 125 MCG TAB PO SCH (06:27)
[2022-06-07] MEDS: busPIRone HCl 5 MG TAB PO SCH ×2 (10:33→21:21)
[2022-06-07] MEDS: Sacubitril 49 MG/Valsartan 51 MG TABLET PO SCH ×2 (10:34→21:19)
[2022-06-07] MEDS: Folic Acid 1 MG TAB PO SCH (10:34)
[2022-06-07] MEDS: Pramipexole Di-HCl 1 MG TAB PO SCH ×3 (10:34→21:19)
[2022-06-07] MEDS: levETIRAcetam 500 MG TAB PO SCH ×2 (10:34→21:18)
[2022-06-07] MEDS: Pantoprazole 40 MG VIAL IVP SCH ×2 (10:38→21:22)
[2022-06-07] MEDS: Lorazepam 2 MG/ML VIAL SLOW IVP PRN (10:38)
[2022-06-07] MEDS ORDERED: Ibuprofen 100 MG/5 ML UDCUP PO PRN (14:17)
[2022-06-07] MEDS: D5W-AA 4.25% with LYTES 1,000 ML IV SCH (21:09)
[2022-06-07] MEDS: DULoxetine 60 MG CAP PO SCH (21:21)
[2022-06-07] MEDS: Lorazepam 0.5 MG TAB PO SCH (21:22)
[2022-06-07] MEDS: Lorazepam 2 MG/ML VIAL SLOW IVP SCH (21:27)
[2022-06-08 05:51] LABS: Band 2 % (5-11); Eosinophils 2 % (0-10); Hemoglobin 8.1 g/dL (12.0-16.0); Hypochromia SLIGHT = 6-15 cells (100X) (0-5/hpf); Lymphocytes 60 % (21-51); MDiff Complete? YES; Mean Corpuscular HGB CONC 34.4 g/dL (32.0-36.0); Mean Corpuscular Hemoglobin 33.4 pg (27.0-31.0); Mean Corpuscular Volume 97.1 fl (78.0-98.0); Mean Platelet Volume 9.2 fL (7.4-10.4); Monocytes 7 % (0-10); Neutrophil 25 % (42-75); Nucleated RBC 3 % (0); Platelet Count 109 10x3/uL (130-400); Platelet Morphology Comment Appears Decreased; RBC Distribution Width 17.8 % (11.5-14.5); Reactive Lymphocytes 4 % (0-10); Red Blood Cell (RBC) Count 2.44 mill/uL (4.20-5.40); White Blood Cell (WBC) Count 11.3 10x3/uL (4.8-10.8)
[2022-06-08] MEDS: Levothyroxine Sodium 125 MCG TAB PO SCH (06:15)
[2022-06-08] MEDS: Acetaminophen 325 MG TAB PO PRN ×2 (06:25→22:27)
[2022-06-08] MEDS: busPIRone HCl 5 MG TAB PO SCH ×2 (10:22→22:18)
[2022-06-08] MEDS: Pantoprazole 40 MG VIAL IVP SCH (10:22)
[2022-06-08] MEDS: Sacubitril 49 MG/Valsartan 51 MG TABLET PO SCH ×2 (10:22→22:18)
[2022-06-08] MEDS: Folic Acid 1 MG TAB PO SCH (10:22)
[2022-06-08] MEDS: Pramipexole Di-HCl 1 MG TAB PO SCH (10:22)
[2022-06-08] MEDS: levETIRAcetam 500 MG TAB PO SCH ×2 (10:23→22:17)
[2022-06-08] MEDS: Lorazepam 2 MG/ML VIAL SLOW IVP PRN (10:31)
[2022-06-08] MEDS: DULoxetine 60 MG CAP PO SCH (22:17)
[2022-06-08] MEDS: Lorazepam 0.5 MG TAB PO SCH (22:18)
[2022-06-08] MEDS ORDERED: levETIRAcetam 500 mg/5 ml Oral Solution PO SCH (22:30)
[2022-06-08] MEDS: D5W-AA 4.25% with LYTES 1,000 ML IV SCH (22:46)
[2022-06-09] MEDS: Lorazepam 2 MG/ML VIAL SLOW IVP PRN ×2 (01:36→13:59)
[2022-06-09] MEDS ORDERED: Melatonin 3 MG TAB PO PRN (04:20)
[2022-06-09] MEDS ORDERED: Melatonin 3 MG TAB PO SCH (04:22)
[2022-06-09] MEDS ORDERED: traMADol HCl 50 MG TAB PO SCH (04:30)
[2022-06-09] MEDS: Levothyroxine Sodium 125 MCG TAB PO SCH (04:59)
[2022-06-09 05:46] LABS: Anisocytosis SLIGHT = 6-15 cells (100X) (0-5/hpf); Band 3 % (5-11); Eosinophils 4 % (0-10); Hemoglobin 8.2 g/dL (12.0-16.0); Lymphocytes 37 % (21-51); MDiff Complete? YES; Mean Corpuscular HGB CONC 34.7 g/dL (32.0-36.0); Mean Corpuscular Hemoglobin 33.5 pg (27.0-31.0); Mean Corpuscular Volume 96.4 fl (78.0-98.0); Mean Platelet Volume 8.6 fL (7.4-10.4); Metamyelocyte 5 % (0-0); Monocytes 22 % (0-10); Myelocyte 1 % (0-0); Neutrophil 28 % (42-75); Nucleated RBC 5 % (0); Ovalocytes SLIGHT = 2-5 cells (100X) (0-1/hpf); Platelet Count 186 10x3/uL (130-400); Platelet Morphology Comment Appears Adequate; Promyelocytes 1 % (0-0); RBC Distribution Width 17.9 % (11.5-14.5); Red Blood Cell (RBC) Count 2.44 mill/uL (4.20-5.40); White Blood Cell (WBC) Count 14.1 10x3/uL (4.8-10.8)
[2022-06-09] MEDS ORDERED: Pramipexole Di-HCl 1 MG TAB PO SCH (09:00)
[2022-06-09 09:22] LABS: ALT (SGPT) 8 U/L (8-55); AST (SGOT) 26 U/L (5-34); Albumin 2.5 g/dL (3.4-4.8); Alkaline Phosphatase 56 U/L (40-110); Anion Gap 12 mmol/L (10-20); BUN (Urea Nitrogen) 22 mg/dL (9.8-20.1); Bilirubin, Total 0.9 mg/dL (0.2-1.2); Calc. Creatinine Clearance 67 mL/min (70-130); Calcium 8.7 mg/dL (7.8-10.44); Carbon Dioxide 27 mmol/L (23-31); Chloride 102 mmol/L (98-107); Estimated GFR 73; Globulin 3.3 g/dL (2.4-3.5); Glucose 109 mg/dL (83-110); Potassium 3.1 mmol/L (3.5-5.1); Protein, Total 5.8 g/dL (5.8-8.1); Sodium 138 mmol/L (136-145)
[2022-06-09] MEDS: levETIRAcetam 500 mg/5 ml Oral Solution PO SCH ×2 (10:25→20:58)
[2022-06-09] MEDS: busPIRone HCl 5 MG TAB PO SCH ×2 (10:25→21:02)
[2022-06-09] MEDS: Sacubitril 49 MG/Valsartan 51 MG TABLET PO SCH ×2 (10:25→21:02)
[2022-06-09] MEDS: Folic Acid 1 MG TAB PO SCH (10:25)
[2022-06-09] MEDS: DULoxetine 60 MG CAP PO SCH (21:02)
[2022-06-09] MEDS: Lorazepam 0.5 MG TAB PO SCH (21:05)
[2022-06-09] MEDS: D5W-AA 4.25% with LYTES 1,000 ML IV SCH (21:07)
[2022-06-09] MEDS ORDERED: Sodium Chloride 0.9% 500 ML IV SCH ×2 (21:15→22:45)
[2022-06-10 00:51] LABS: ALT (SGPT) 7 U/L (8-55); AST (SGOT) 22 U/L (5-34); Albumin 2.2 g/dL (3.4-4.8); Alkaline Phosphatase 54 U/L (40-110); Anion Gap 10 mmol/L (10-20); BUN (Urea Nitrogen) 33 mg/dL (9.8-20.1); Bilirubin, Total 0.8 mg/dL (0.2-1.2); Calc. Creatinine Clearance 48 mL/min (70-130); Calcium 8.2 mg/dL (7.8-10.44); Carbon Dioxide 27 mmol/L (23-31); Chloride 103 mmol/L (98-107); Estimated GFR 49; Globulin 3.3 g/dL (2.4-3.5); Glucose 89 mg/dL (83-110); Magnesium 1.4 mg/dL (1.6-2.6); Potassium 3.4 mmol/L (3.5-5.1); Protein, Total 5.5 g/dL (5.8-8.1); Sodium 137 mmol/L (136-145)
[2022-06-10] MEDS ORDERED: Sodium Chloride 0.9% 500 ML IV SCH (04:15)
[2022-06-10] MEDS ORDERED: Potassium Chloride 20 MEQ in Premix Bag 1 BAG IVPB SCH (04:30)
[2022-06-10] MEDS ORDERED: Sodium Chloride 0.9% 1,000 ML IV SCH (04:30)
[2022-06-10] MEDS ORDERED: Magnesium 2 GM/50 ML(in water) 2 GM in Premix Bag 1 BAG IVPB SCH (04:30)
[2022-06-10] MEDS: Levothyroxine Sodium 125 MCG TAB PO SCH (05:42)
[2022-06-10] MEDS: Dextrose 5 % And 0.9 % NaCl 1,000 ML IV SCH (08:33)
[2022-06-10] MEDS: Lorazepam 2 MG/ML VIAL SLOW IVP PRN ×2 (09:11→18:28)
[2022-06-10] MEDS: levETIRAcetam 500 mg/5 ml Oral Solution PO SCH ×3 (09:13→22:46)
[2022-06-10] MEDS: busPIRone HCl 5 MG TAB PO SCH ×3 (09:13→22:45)
[2022-06-10] MEDS: Folic Acid 1 MG TAB PO SCH ×2 (09:14→09:35)
[2022-06-10] MEDS: Sacubitril 49 MG/Valsartan 51 MG TABLET PO SCH ×3 (09:14→22:46)
[2022-06-10] MEDS: Acetaminophen 325 MG TAB PO PRN (09:16)
[2022-06-10 09:18] LABS: Mean Corpuscular HGB CONC 33.7 g/dL (32.0-36.0); Mean Corpuscular Hemoglobin 33.8 pg (27.0-31.0); Mean Platelet Volume 8.7 fL (7.4-10.4); Platelet Count 192 10x3/uL (130-400); RBC Distribution Width 18.4 % (11.5-14.5); Red Blood Cell (RBC) Count 2.07 mill/uL (4.20-5.40); White Blood Cell (WBC) Count 13.5 10x3/uL (4.8-10.8)
[2022-06-10 10:59] LABS: Band 11 % (5-11); Eosinophils 2 % (0-10); Lymphocytes 27 % (21-51); MDiff Complete? YES; Metamyelocyte 5 % (0-0); Monocytes 23 % (0-10); Myelocyte 6 % (0-0); Neutrophil 26 % (42-75); Platelet Morphology Comment Appears Adequate; RBC Morphology Normal
[2022-06-10] MEDS: Lorazepam 0.5 MG TAB PO SCH (22:46)
[2022-06-10] MEDS: DULoxetine 60 MG CAP PO SCH (22:46)
[2022-06-11] MEDS ORDERED: Lorazepam 2 MG/ML VIAL SLOW IVP SCH (04:15)
[2022-06-11] MEDS ORDERED: Lorazepam 2 MG/ML VIAL ONE (04:33)
[2022-06-11 05:47] LABS: Anisocytosis MODERATE=16-30 cells (100X) (0-5/hpf); Band 2 % (5-11); Eosinophils 7 % (0-10); Hemoglobin 7.3 g/dL (12.0-16.0); Lymphocytes 14 % (21-51); MDiff Complete? YES; Macrocytosis SLIGHT = 6-15 cells (100X) (0-5/hpf); Mean Corpuscular HGB CONC 33.5 g/dL (32.0-36.0); Mean Corpuscular Volume 98.4 fl (78.0-98.0); Mean Platelet Volume 8.4 fL (7.4-10.4); Metamyelocyte 2 % (0-0); Monocytes 20 % (0-10); Myelocyte 3 % (0-0); Neutrophil 52 % (42-75); Nucleated RBC 2 % (0); Ovalocytes SLIGHT = 2-5 cells (100X) (0-1/hpf); Platelet Count 260 10x3/uL (130-400); Platelet Morphology Comment Appears Adequate; RBC Distribution Width 19.4 % (11.5-14.5); Red Blood Cell (RBC) Count 2.21 mill/uL (4.20-5.40); Tear Drops SLIGHT = 2-5 cells (100X) (0-1/hpf); White Blood Cell (WBC) Count 16.6 10x3/uL (4.8-10.8)
[2022-06-11] MEDS: Dextrose 5 % And 0.9 % NaCl 1,000 ML IV SCH ×2 (06:00→06:59)
[2022-06-11] MEDS: Levothyroxine Sodium 125 MCG TAB PO SCH (06:05)
[2022-06-11] MEDS ORDERED: Lorazepam 2 MG/ML VIAL SLOW IVP PRN (08:48)
[2022-06-11] MEDS ORDERED: Morphine 2 MG/ML VIAL SLOW IVP PRN (08:49)
[2022-06-11 12:37] VITALS: BP 81/43; TEMP 97.6
[2022-06-11] MEDS: Folic Acid 1 MG TAB PO SCH (13:38)
[2022-06-11] MEDS: levETIRAcetam 500 mg/5 ml Oral Solution PO SCH (13:38)
[2022-06-11] MEDS: busPIRone HCl 5 MG TAB PO SCH (13:38)
[2022-06-11] MEDS: Sacubitril 49 MG/Valsartan 51 MG TABLET PO SCH (13:39)
== END 2022-06-11 13:53 | disposition hospice, inpatient (51) | DRG 808 ==
LOC: 2NO 14:51
PROVIDERS: ADMIT Hospitalist; ATTEND Internal Medicine
DX: D61.818 Other pancytopenia (principal); G93.41 Metabolic encephalopathy; I50.43 Acute on chronic combined systolic (congestive) and diastolic (congestive) heart failure; J96.21 Acute and chronic respiratory failure with hypoxia; U07.1 COVID-19; J69.0 Pneumonitis due to inhalation of food and vomit; I48.20 Chronic atrial fibrillation, unspecified; Z66 Do not resuscitate; Z51.5 Encounter for palliative care; G40.909 Epilepsy, unspecified, not intractable, without status epilepticus; E03.9 Hypothyroidism, unspecified; I25.10 Atherosclerotic heart disease of native coronary artery without angina pectoris; M06.9 Rheumatoid arthritis, unspecified; D62 Acute posthemorrhagic anemia; F41.9 Anxiety disorder, unspecified; K21.00 Gastro-esophageal reflux disease with esophagitis, without bleeding; Z88.1 Allergy status to other antibiotic agents; Z88.0 Allergy status to penicillin; Z88.8 Allergy status to other drugs, medicaments and biological substances; Z88.5 Allergy status to narcotic agent; Z79.899 Other long term (current) drug therapy; Z79.890 Hormone replacement therapy; Z79.51 Long term (current) use of inhaled steroids; Z90.49 Acquired absence of other specified parts of digestive tract; Z90.710 Acquired absence of both cervix and uterus; Z86.711 Personal history of pulmonary embolism; Z79.01 Long term (current) use of anticoagulants
CPT/HCPCS: 36415; 71045; 74018; 80048; 80053; 83735; 83880; 85025; C9113; J1940; J1956; J2060; J2272; J3475; J3480; J7030; J7042; J7050; U0003; U0005

== ENCOUNTER 2022-06-11 13:59 | Inpatient (IN) | payer OTHER ==
[2022-06-11] MEDS ORDERED: Bisacodyl 10 MG SUPP PR PRN (14:34)
[2022-06-11] MEDS ORDERED: Ondansetron PF 4 MG/2 ML Vial IVP PRN (14:45)
[2022-06-11] MEDS ORDERED: diphenhydrAMINE 50 MG/ML VIAL IVP PRN (14:45)
[2022-06-11] MEDS ORDERED: Haloperidol Lactate 5 MG/ML VIAL SLOW IVP PRN (14:45)
[2022-06-11] MEDS ORDERED: Scopolamine 1.5 mg/72 hour Patch TOP PRN (14:45)
[2022-06-11] MEDS ORDERED: Acetaminophen 650 MG Suppository PR PRN (14:45)
[2022-06-11] MEDS: Morphine 2 MG/ML VIAL SLOW IVP PRN (21:24)
[2022-06-12] MEDS: Morphine 2 MG/ML VIAL SLOW IVP PRN ×6 (06:37→23:05)
[2022-06-12] MEDS: Lorazepam 2 MG/ML VIAL SLOW IVP PRN ×3 (09:38→20:13)
[2022-06-13] MEDS: Morphine 2 MG/ML VIAL SLOW IVP PRN ×7 (03:19→23:58)
[2022-06-13] MEDS: Lorazepam 2 MG/ML VIAL SLOW IVP PRN ×3 (11:40→22:14)
[2022-06-13 16:23] VITALS: TEMP 98.2
[2022-06-13 20:02] VITALS: BP 54/34
[2022-06-14] MEDS: Morphine 2 MG/ML VIAL SLOW IVP PRN ×2 (02:12→06:05)
[2022-06-14] MEDS: Lorazepam 2 MG/ML VIAL SLOW IVP PRN ×3 (06:06→06:29)
== END 2022-06-14 06:35 | disposition expired | DRG 951 ==
LOC: 2NO 13:59 → T4-B 06-13 15:37
PROVIDERS: ADMIT Family Medicine; ATTEND Family Medicine
DX: Z51.5 Encounter for palliative care (principal); J69.0 Pneumonitis due to inhalation of food and vomit; F03.90 Unspecified dementia, unspecified severity, without behavioral disturbance, psychotic disturbance, mood disturbance, and anxiety; I50.9 Heart failure, unspecified; I48.91 Unspecified atrial fibrillation; E03.9 Hypothyroidism, unspecified; G40.909 Epilepsy, unspecified, not intractable, without status epilepticus; Z88.8 Allergy status to other drugs, medicaments and biological substances; Z86.73 Personal history of transient ischemic attack (TIA), and cerebral infarction without residual deficits; Z86.711 Personal history of pulmonary embolism; Z79.01 Long term (current) use of anticoagulants; Z88.1 Allergy status to other antibiotic agents
CPT/HCPCS: J2060; J2272